=== PATIENT | male | born 1980 | race Asian ===

== ENCOUNTER 2021-09-20 21:39 | Observation (INO) ==
[2021-09-20] MEDS ORDERED: SODIUM CHLORIDE 0.9% 1000ML 1,000 ML IV SCH (22:15)
--- NOTE | 2021-09-20 22:15 | Emergency Department Note ---
History of Present Illness General Chief complaint: Chest Pain Stated complaint: chest pain Time Seen by Provider: 09/20/21 22:02 History of Present Illness Maximum Pain Intensity: 7 This is a 41-year-old male presenting to the emergency department for evaluation of persistent chest pain and cough for the past 2 months. The patient has followed with his primary care physician with this complaint and reportedly had outpatient x-rays that did show pneumonia. He has been on Zithromax, which he feels may have improved his symptoms initially. Over the last few days his symptoms have worsened and tonight he had an episode of scant hemoptysis. The patient does not report fevers or chills. He does not usually take prescription medication on a regular basis. He does not recall any recent travel history or personal/family history of DVT/PE. He rates his current discomfort a 7/10. Most of his chest pain worsens with his coughing. Home Medications Medication Instructions Recorded Confirmed Type amlodipine 10 mg tablet 10 mg PO DAILY 09/21/21 09/21/21 History Allergies Allergy/AdvReac Type Severity Reaction Status Date / Time milk AdvReac Intermediate Gastrointestinal Verified 09/21/21 00:27 Upset Past Med/Surg History Medical History (Updated 09/21/21 @ 02:00 by Blake Cohen PA-C) No chronic diseases present Surgical History (Updated 09/20/21 @ 22:14 by Blake Cohen PA-C) No significant past surgical history Family History (Updated 09/21/21 @ 01:55 by Blake Cohen PA-C) Father Cancer from Lung Cancer at 64 y/o Social History Smoking Status: Never smoker Feels Safe at Home: Yes Review of Systems A total of 10 systems reviewed and were otherwise negative Physical Exam Vital Signs Vital Signs - 24 hr 09/20/21 21:39 09/20/21 22:11 09/21/21 00:00 Temperature 36.8 C Temperature Source Temporal Artery Scan Pulse Rate 103 H Pulse Rate [Apical] 95 H Pulse Rhythm [Apical] Regular Respiratory Rate 18 12 Respiratory Effort / Characteristics Non-Labored Respiratory Depth Normal Normal Blood Pressure 150/94 H Blood Pressure [Right Arm] 154/110 H Blood Pressure Mean 112 Blood Pressure Mean [Right Arm] 124 Pulse Oximetry 96 95 95 Oxygen Delivery Method Room Air Room Air Room Air Sepsis Recent Fever Within 48 Hours No Sepsis New/Unexplained Change in Mental Status No Sepsis Action Taken by Nursing No Action Required VITALS: Vitals are noted on the nurse's note and reviewed by myself. Vital signs with tachycardia GENERAL: Well-developed, well-nourished, male, who is in no acute distress and resting comfortably. Patient is cooperative with the examination. HEAD: Normocephalic atraumatic. MOUTH: Mucous membranes moist. Tonsils are not enlarged. Pharynx without erythema, blood, or exudate. Uvula midline. Airway patent. NECK: Supple without nuchal rigidity. No lymphadenopathy. No thyromegaly. Cervical spine is nontender. HEART: Tachycardic rate with regular rhythm LUNGS: Generally clear throughout with some mild crackles left-sided low chua. ABDOMEN: Positive normal bowel sounds x 4. Soft, nontender, without masses or organomegaly. No guarding or rebound tenderness. MUSCULOSKELETAL: No muscle atrophy, erythema, or edema noted. Full range of motion in all extremities. No palpable cords. No identifiable calf tenderness bilateral. Course Administered Medications Discontinued Medications Sodium Chloride (Nss 1000ml) 1,000 mls @ 999 mls/hr IV .Q1H1M KULDIP Stop: 09/20/21 23:15 Last Infusion: 09/21/21 00:09 Dose: 0 mls/hr Documented by: [id number] Admin: 09/20/21 22:44 Dose: 999 mls/hr Documented by: [id number] Cosigned by: [id number] Ioversol (Optiray 320 125ml) 121 ml IV ONCE ONE Stop: 09/21/21 00:00 Last Admin: 09/20/21 23:59 Dose: 1 ml Documented by: [id number] Medical Decision Making Differential Diagnosis Differential diagnosis includes, but is not limited to: Myocardial infarction, dysrhythmia, pericarditis, pneumothorax, aortic aneurysm/dissection, DVT/PE, anxiety, GERD, PUD, electrolyte imbalance, thyroid disorder, pneumonia, bronchitis, pancreatitis, and others Laboratory Data Result diagrams: 09/20/21 22:31 09/20/21 22:31 Lab Results 09/20/21 09/20/21 09/20/21 Range/Units 22:31 22:31 23:19 WBC 7.54 (4.8-10.8) K/uL RBC 5.41 (4.7-6.1) M/uL Hgb 16.1 (14.0-18.0) g/dL Hct 44.2 (42-52) % MCV 81.7 (80-100) fL MCH 29.8 (25-34) pg MCHC 36.4 H (32-36) g/dL RDW Std Deviation 37.7 (36.4-46.3) fL RDW Coeff of [place] 12.7 (11.5-14.5) % Plt Count 257 (130-400) K/uL MPV 10.1 (7.4-10.4) fL Immature Gran % (Auto) 0.0 % Neut % (Auto) 74.3 % Lymph % (Auto) 19.9 % Boyle % (Auto) 3.7 % Eos % (Auto) 2.0 % Baso % (Auto) 0.1 % Neut # (Auto) 5.60 (1.4-6.5) K/uL Lymph # (Auto) 1.50 (1.2-3.4) K/uL Boyle # (Auto) 0.28 (0.11-0.59) K/uL Eos # (Auto) 0.15 (0-0.5) K/uL Baso # (Auto) 0.01 (0-0.2) K/uL Immature Gran # (Auto) 0.00 (0.00-0.02) K/uL Sodium 139 (136-145) mmol/L Potassium 3.1 L (3.5-5.1) mmol/L Chloride 103 (98-107) mmol/L Carbon Dioxide 27 (21-32) mmol/L Anion Gap 9 (3-11) BUN 5 L (6-23) mg/dl Creatinine 0.63 (0.6-1.4) mg/dl Est Cr Clr Drug Dosing 157.4 ml/min Est GFR ( Amer) 143.9 ml/min Est GFR (Non-Af Amer) 124.1 ml/min BUN/Creatinine Ratio 7.9 L (10-20) Glucose 120 H (70-99(Fasting)) mg/dl Calcium 8.8 (8.5-10.1) mg/dl Total Bilirubin 0.7 (0.2-1.0) mg/dl AST 15 (13-39) U/L ALT 17 (7-52) U/L Alkaline Phosphatase 114 H (34-104) U/L Troponin I < 0.03 (0-0.04) ng/ml Total Protein 7.6 (6.0-8.3) gm/dl Albumin 4.4 (3.4-5.0) gm/dl Globulin 3.2 (2.5-4.0) gm/dl Albumin/Globulin Ratio 1.4 (0.9-2) Lipase 19 (11-82) U/L Urine Color Yellow Urine Appearance Clear (Clear) Urine pH 7.5 (4.5-7.5) Ur Specific [place] 1.002 (1.000-1.030) Urine Protein Negative (Negative) Urine Glucose (UA) Negative (Negative) Urine Ketones Negative (Negative) Urine Blood Negative (Negative) Urine Nitrite Negative (Negative) Urine Bilirubin Negative (Negative) Urine Urobilinogen Negative (Negative) Ur Leukocyte Esterase Negative (Negative) SARS-CoV-2, RNA, NAAT (NEGATIVE) 09/21/21 Range/Units 00:53 WBC (4.8-10.8) K/uL RBC (4.7-6.1) M/uL Hgb (14.0-18.0) g/dL Hct (42-52) % MCV (80-100) fL MCH (25-34) pg MCHC (32-36) g/dL RDW Std Deviation (36.4-46.3) fL RDW Coeff of [place] (11.5-14.5) % Plt Count (130-400) K/uL MPV (7.4-10.4) fL Immature Gran % (Auto) % Neut % (Auto) % Lymph % (Auto) % Boyle % (Auto) % Eos % (Auto) % Baso % (Auto) % Neut # (Auto) (1.4-6.5) K/uL Lymph # (Auto) (1.2-3.4) K/uL Boyle # (Auto) (0.11-0.59) K/uL Eos # (Auto) (0-0.5) K/uL Baso # (Auto) (0-0.2) K/uL Immature Gran # (Auto) (0.00-0.02) K/uL Sodium (136-145) mmol/L Potassium (3.5-5.1) mmol/L Chloride (98-107) mmol/L Carbon Dioxide (21-32) mmol/L Anion Gap (3-11) BUN (6-23) mg/dl Creatinine (0.6-1.4) mg/dl Est Cr Clr Drug Dosing ml/min Est GFR ( Amer) ml/min Est GFR (Non-Af Amer) ml/min BUN/Creatinine Ratio (10-20) Glucose (70-99(Fasting)) mg/dl Calcium (8.5-10.1) mg/dl Total Bilirubin (0.2-1.0) mg/dl AST (13-39) U/L ALT (7-52) U/L Alkaline Phosphatase (34-104) U/L Troponin I (0-0.04) ng/ml Total Protein (6.0-8.3) gm/dl Albumin (3.4-5.0) gm/dl Globulin (2.5-4.0) gm/dl Albumin/Globulin Ratio (0.9-2) Lipase (11-82) U/L Urine Color Urine Appearance (Clear) Urine pH (4.5-7.5) Ur Specific [place] (1.000-1.030) Urine Protein (Negative) Urine Glucose (UA) (Negative) Urine Ketones (Negative) Urine Blood (Negative) Urine Nitrite (Negative) Urine Bilirubin (Negative) Urine Urobilinogen (Negative) Ur Leukocyte Esterase (Negative) SARS-CoV-2, RNA, NAAT NEGATIVE (NEGATIVE) Imaging Data Radiologist's Impression: Preliminary Findings Only See Final Report For Complete Findings CTA CHEST: Ovoid lesion along the right paraspinal region measuring 3.0 x 1.8 cm. Mild to moderate left-sided pleural effusion. Cavitary lesion within the left lower lobe measuring 2.7 cm with spiculations raising the concern of neoplasm. Soft tissue density through the lingular lobe extending into the left hilum which could represent a mass versus pneumonitis. There is a mass within the left hilum concerning for neoplasm contributing to a circumferential narrowing of the left lower lobe pulmonary artery and pulmonary lingular branches. This may be accessible via bronchoscopy due to central location if clinically indicated. Diffuse bilateral scattered micronodules raising the concern of metastatic disease. There are lymph nodes along the aortopulmonary window, may represent metastatic lymphadenopathy. There are several lymph nodes in the left axilla, largest measuring 1.7 cm, indeterminate. There is a low-attenuation structure within the liver at the junction of the right and left liver lobe measuring 12.6 mm suggestive of a cyst, etiology ind eterminate. No pulmonary embolus or aortic dissection. Normal cardiac size. Unremarkable bony structures. Radiologist:Leyla Villegas MD [facility] Narrative Physical exam and history were performed. Nursing notes, EMR, and Medication List were personally reviewed. Patient appears to have atypical chest pain with coughing. He is tachycardic on presentation. IV access was established and labs were obtained. EKG was performed without acute ST elevation. Because of his symptoms I did elect perform CT scan for pulmonary emboli as D-dimer is not able to rule out this process based on patient's presenting symptoms and vitals. An order was placed for continuous cardiac monitoring. The monitor shows a rate of 95 with normal sinus rhythm. The patient's blood work is as above and was reviewed. He does not have a significantly elevated white blood cell count, bandemia, or gross electrolyte imbalance. He is not anemic. Troponin x1 is negative. Lipase and transaminases are not diagnostic. Urine is without evidence of infection. Covid is negative. CT scan of the chest with contrast was reviewed by myself and radiology. CT scan is quite concerning. The patient does not appear to have distinct pulmonar y emboli which was my initial concern. He does have several findings that may represent cancerous or metastatic findings. I did review possibilities of tuberculosis, however I was not able to identify any distinct risks of this. The patient does not smoke tobacco. His father at a relatively young age of lung cancer. The case was discussed with my attending. Overall we do not feel the patient is well for discharge home. He will need additional evaluation of his symptoms. The case was discussed with the on-call hospitalist team, who agreed to evaluate the patient here in the ER. Please see their dictation for further patient course, plan, and disposition. The chart was completed utilizing The [employer] Voice Recognition Software. Grammatical errors, random word insertions, pronoun errors, and incomplete sentences are an occasional consequence of this system due to software limitations, ambient noise, and hardware issues. Any formal questions or concerns about the content, text, or information contained within the body of this dictation should be directly addressed to the provider for clarification. . Impression & Plan Atypical chest pain, Abnormal CT of the chest, Pleural effusion on left, Cavitary lesion of lung Discharge Plan Visit Data Chief Complaint: Chest Pain Stated Complaint: chest pain ED Provider: Srinivas Farfan ED Midlevel Provider: Blake Cohen Discharge Problem: Atypical chest pain, Abnormal CT of the chest, Pleural effusion on left, Cavitary lesion of lung Forms Stand Alone Forms: [facility] Prescriptions Prescriptions: No Action amlodipine 10 mg tablet 10 mg PO DAILY RF: 0 Referrals Referrals: Galindo Forst [Primary Care Provider] -
[2021-09-20 22:39] LABS: Basophils # (auto) 0.01 K/uL (0-0.2); Basophils % (auto) 0.1 %; Eosinophils # (auto) 0.15 K/uL (0-0.5); Hematocrit (blood only) 44.2 % (42-52); Hemoglobin 16.1 g/dL (14.0-18.0); Lymphocytes % (auto) 19.9 %; Mean Corpuscular Hemoglobin 29.8 pg (25-34); Mean Corpuscular Hgb Conc 36.4 g/dL (32-36); Mean Corpuscular Volume 81.7 fL (80-100); Mean Platelet Volume 10.1 fL (7.4-10.4); Monocytes # (auto) 0.28 K/uL (0.11-0.59); Monocytes % (auto) 3.7 %; Neutrophils % (auto) 74.3 %; Platelet Count 257 K/uL (130-400); RDW Coefficient of Variation 12.7 % (11.5-14.5); RDW Standard Deviation 37.7 fL (36.4-46.3); Red Blood Count 5.41 M/uL (4.7-6.1); White Blood Count 7.54 K/uL (4.8-10.8)
[2021-09-20 23:08] LABS: Troponin I < 0.03 ng/ml (0-0.04)
[2021-09-20 23:11] LABS: Alanine Aminotransferase 17 U/L (7-52); Albumin Globulin Ratio 1.4 (0.9-2); Albumin Level 4.4 gm/dl (3.4-5.0); Alkaline Phosphatase 114 U/L (34-104); Anion Gap 9 (3-11); Aspartate Aminotransferase 15 U/L (13-39); BUN Creatinine Ratio 7.9 (10-20); Bilirubin,Total 0.7 mg/dl (0.2-1.0); Blood Urea Nitrogen 5 mg/dl (6-23); Calcium 8.8 mg/dl (8.5-10.1); Carbon Dioxide 27 mmol/L (21-32); Chloride 103 mmol/L (98-107); Creatinine Clr Calc Pharmacy 157.4 ml/min; Est GFR (African American) 143.9 ml/min; Est GFR (Non-African American) 124.1 ml/min; Globulin 3.2 gm/dl (2.5-4.0); Glucose 120 mg/dl (70-99(Fasting)); Lipase 19 U/L (11-82); Potassium 3.1 mmol/L (3.5-5.1); Sodium 139 mmol/L (136-145); Total Protein 7.6 gm/dl (6.0-8.3)
[2021-09-20 23:33] LABS: Appearance Urine Clear (Clear); Bilirubin Urine Negative (Negative); Blood Urine Negative (Negative); Color Urine Yellow; Glucose Urine UA Negative (Negative); Ketones Urine Negative (Negative); Leukocyte Esterase Urine Negative (Negative); Nitrite Urine Negative (Negative); Protein Urine Negative (Negative); Specific Gravity Urine 1.002 (1.000-1.030); Urobilinogen Urine Negative (Negative); pH Urine 7.5 (4.5-7.5)
[2021-09-20] MEDS ORDERED: OPTIRAY 320 125ml IV ONE (23:59)
--- NOTE | 2021-09-21 01:22 | History & Physical Report ---
Date of Service September 21, 2021 Assessment & Plan (1) Cavitary lesion of lung: (2) Atypical chest pain: (3) Hypertension: Plan: Maria C Goldman is a 41-year-old male with past medical history of hypertension who presents due to chest pain and hemoptysis starting today. He has also had a chronic cough dating back to June 2021. Pulmonary lesions See CTA results above concerning for neoplasm with possible metastasis Cavitary lesion less concerning for tuberculosis, as patient has not had recent travel history and lesion located in left lower lobe Admit for observation to [facility] Will consult pulmonology for possible bronchoscopy to aid in diagnosis Cough suppressant as needed Tylenol as needed for pain N.p.o. LR at 115 cc/h Hypokalemia K of 3.1 on initial labs KCl 40 mEq IV ordered Check a.m. labs Hypertension Mildly elevated blood pressure, monitor Continue home amlodipine DVT prophylaxis: SCDs, hold chemoprophylaxis in case of bronchoscopy FEN/GI: N.p.o., LR at 115 cc/h Dispo: [facility] for observation CODE STATUS: Full History of Present Illness Primary Care Provider: Galindo Frost Maria C Goldman is a 41-year-old male with past medical history of hypertension who presents due to chest pain and hemoptysis starting today. Patient was seen at his PCPs office on July 24, 2021 where he complained of persistent cough of 4 weeks duration. He had a negative Covid test at that time. A chest x-ray was ordered ray and he was prescribed Tessalon Perles. His x-ray done on 08/10/2021 showed a minimal left lower lung opacity, which was favored to be atelectasis but small focus of pneumonia could not be ruled out. Per [facility] chart review, he followed up with his PCP on 08/22/2021 and informed his PCP that he had taken a Z-Delfin from [place] after finding out about his x-ray results. At that follow-up visit, patient still endorsed having a co ugh productive of white sputum. At that time this was his only symptom. Patient and at bedside today state that his cough was at its worst about 2 to 3 weeks ago, but this week had actually improved significantly. However, today he had a recurrence of the cough and noticed some blood-tinged sputum coming up. He also reported chest pain with the cough. He denies fever, chills, nausea, vomiting, abdominal pain, shortness of breath, headache, dizziness, numbness, swelling, weight loss, night sweats. Patient denies a history of smoking. States father of lung cancer. In the ED today, patient had lab studies with normal white count, normal hemoglobin, normal platelet count, normal sodium, potassium at 3.1, mildly elevated alk phos at 114, negative troponin. EKG with normal sinus rhythm. CTA of the chest with findings significant for cavitary lesion, multiple masses, lymphadenopathy (see complete stat rad read below). Allergies Allergy/AdvReac Type Severity Reaction Status Date / Time milk AdvReac Intermediate Gastrointestinal Verified 09/21/21 00:27 Upset Home Medications Medication Instructions Recorded Confirmed Type amlodipine 10 mg tablet 10 mg PO DAILY 09/21/21 09/21/21 History Past Med/Surg History Medical History (Updated 09/21/21 @ 02:46 by Cb Garcia MD) Hypertension Surgical History (Updated 09/20/21 @ 22:14 by Blake Cohen PA-C) No significant past surgical history Family History (Updated 09/21/21 @ 01:55 by Blake Cohen PA-C) Father Cancer from Lung Cancer at 64 y/o Social History Smoking Status: Never smoker Feels Safe at Home: Yes Review of Systems Review of Systems: All systems reviewed & are unremarkable except as noted in HPI & below Physical Exam Physical Exam: GENERAL: A&Ox3. NAD. HEENT: PERRL, EOMI. Moist mucous membranes. NECK: No JVD. No lymphadenopathy. CHEST/LUNGS: CTAB A/P. Crackles in lower left; no wheezes, rales, rhonchi. HEART: RRR. No m/g/r. ABDOMEN: NT/ND, soft. BS+ x4 EXTREMITIES: No cyanosis, no clubbing, no edema SKIN: Warm and dry. No rashes or lesions. PSYCHIATRIC: Euthymic affect, no SI, no pressured speech, no hallucinations NEUROLOGIC: No FND. CN II-XII grossly intact. Results & Data Results & Data ([facility]) Vital Signs (Past 12 Hours) Vital Signs Temp Pulse Pulse Resp BP BP Pulse Ox 09/21/21 00:00 95 H 12 154/110 H 95 09/20/21 22:11 95 09/20/21 21:39 36.8 C 103 H 18 150/94 H 96 Diagnostic Findings CTA chest: Ovoid lesion along the right paraspinal region measuring 3.0 x 1.8 cm. Mild to moderate left-sided pleural effusion. Cavitary lesion within the left lower lobe measuring 2.7 cm with spiculations raising the concern of neoplasm. Soft tissue density throughout the lingular lobe extending into the left hilum which could represent a mass versus pneumonitis. There is a mass within the left hilum concerning for neoplasm contributing to a circumferential narrowing of the left lower lobe pulmonary artery and pulmonary lingular branches. This may be accessible via bronchoscopy due to central location if clinically indicated. Diffuse bilateral scattered micronodules raising the concern of metastatic disease. There are lymph nodes along the aortopulmonary window, may represent metastatic lymphadenopathy. There are several lymph nodes in the left axilla, largest measuring 1.7 cm, indeterminate. There is a low- attenuation structure within the liver at the junction of the right and left liver lobe measuring 12.6 mm suggestive of a cyst, etiology indeterminate. No pulmonary embolus or aortic dissection. Normal cardiac size. Unremarkable bony structures. Supervising Physician Co-Signing Physician Notes Patient seen and examined, chart reviewed, case discussed with Dr. Sofia and I agree with the assessment and plan as above. In brief, patient is a 41yo male with history of HTN presenting with cough, hemoptysis - was managed outpatient with antibiotics for presumed PNA. CTA today with findings as above - concern for malignancy Exam is unremarkable. Afebrile, HD stable Patient resting comfortably, no respiratory distress Lungs CTA Labs and images reviewed Assessment/plan Cavitary lesion lung with nodes, effusion, concern for malignancy. ?infectious process, autoimmune less likely -Supplemental O2 as needed -Cough suppressants as needed -Pulmonary consultation appreciated -Remainder as above Resident Activity Tracking Resident Involvement: Resident Care Provided Care Provided: Adult Hospital Medicine
[2021-09-21] MEDS ORDERED: POTASSIUM CHLORIDE / WTR 10 MEQ/100 ML PLCT IV STA (02:48)
[2021-09-21] MEDS ORDERED: guaiFENesin/DEXTROM SYRUP 200MG/20MG 10ML UDC PO PRN (03:15)
[2021-09-21] MEDS ORDERED: ONDANSETRON INJ 2 MG/ML 2 ML VIAL IV PRN ×2 (03:15→12:50)
[2021-09-21] MEDS ORDERED: ACETAMINOPHEN 1,000 MG/100 ML VIAL IV PRN (03:15)
[2021-09-21] MEDS: LACTATED RINGER'S 1,000 ML IV SCH ×2 (04:00→15:31)
--- NOTE | 2021-09-21 04:37 | Billing Data ---
Date of Service September 21, 2021 Coding Level of Care Code INT OBSERVATION CARE 50M LVL 2
[2021-09-21] MEDS: POTASSIUM CHLORIDE / WTR 10 MEQ/100 ML PLCT IV SCH ×4 (05:18→08:45)
--- NOTE | 2021-09-21 08:08 | Pulmonary Consultation ---
Date of Consultation September 21, 2021 Assessment & Plan (1) Abnormal CT of the chest: (2) Cavitary lesion of lung: (3) LAD (lymphadenopathy), mediastinal: CT chest 09/20/2021 personally reviewed: Multiple small pulmonary nodules appreciated bilaterally upper and lower lobes especially in the upper lobes Left hilar mass encasing part of the left pulmonary artery 3.1 x 2.8 cm 2.1 cm irregular cavitary lesion appreciated in the left lower lobe anterior segment Consolidative process in the lingula Mediastinal lymphadenopathy especially station 10 L, station 7 There is also lower thoracic paraspinal mass 3.1 x 2 cm --Left lower lobe cavitary lesion with left hilar mass and mediastinal lymphadenopathy The patient is a lifetime non-smoker Weight loss Originally from [place] with last travel history 5-6 years ago Etiology could be multifactorial but malignancy will be high in differential Infectious etiology like TB is still in the differential Sputum culture along with AFB culture --Hemoptysis Likely secondary to above --Left pleural effusion Small Unfortunately there is a sliding of the lung and it is risky to do thoracentesis Plan: We will try to do EBUS with flexible bronchoscopy Risk and benefit of the procedure expanded the patient in depth All question course of the patient were answered in depth He agrees to go ahead with the procedure Consent signed, witnessed and put in the chart Please note the above document was generated using voice recognition software. It may contain grammatical, syntax or spelling errors.Any formal questions or concerns about the content, text or information contained within the body of this dictation should be directly addressed to the provider for clarification. History of Present Illness Attending Physician: Teddy Alatorre DO History of Present Illness 41-year-old male admitted to the hospital because of chest pain and hemoptysis Patient had CT chest done which showed left hilar mass with cavitary lesion in the left lower lobe Pulmonary consulted for the same At time of examination patient said that he has been having issues with a cough which has been going on for approximately 6-8 weeks. He has tested negative for Covid in the past. He was using symptomatic management for the cough as well as azithromycin. But it was not getting better Yesterday morning he had some blood in the phlegm for which she got worried and got admitted to hospital He does complain of chest pain which is actually more central and on the right side rather than the left. Denies any fever or chills No dysuria, or diarrhea. Last time he traveled to [place] was 5-6 years ago He denies any personal history of tuberculosis. No known TB contacts He has had loss in appetite as well as 4 pound weight loss in the last 2 months. Denies any night sweats. No headache, no blurry vision. Social history: Lifetime non-smoker. Allergies Allergy/AdvReac Type Severity Reaction Status Date / Time milk AdvReac Intermediate Gastrointestinal Verified 09/21/21 00:27 Upset Home Medications Medication Instructions Recorded Confirmed Type amlodipine 10 mg tablet 10 mg PO DAILY 09/21/21 09/21/21 History Patient History Medical History (Updated 09/21/21 @ 08:08 by Shaun Vasquez MD) Hypertension Surgical History (Updated 09/20/21 @ 22:14 by Blake Cohen PA-C) No significant past surgical history Family History (Updated 09/21/21 @ 01:55 by Blake Cohen PA-C) Father Cancer from Lung Cancer at 64 y/o Social History Smoking Status: Never smoker Hx Alcohol Use: No Hx Substance Use: No Preferred Language: Irish Communication Ability: Effective Corn Cooker Required: No Beliefs That Will Affect Care: None Current Living Situation: Spouse Feels Safe at Home: Yes Safety Concerns: Feels Safe At This Time Assistive Devices: None Review of Systems Review of Systems: All systems reviewed & are unremarkable except as noted in HPI & below Physical Exam Physical Exam: Constitutional: No acute distress HEENT: EOMI, PERRLA, no cervical lymphadenopathy Respiratory system: Decreased air entry bilaterally more decreased on the left side, no wheeze, no rhonchi, mild crackles bilaterally CVS: S1-S2 positive, no murmurs or gallops Abdomen: Soft, nontender, nondistended, positive bowel sounds x4 Extremities: +2 pulses bilaterally radialis/ dorsalis pedis, no cyanosis, no edema Neuro: Awake alert oriented x3 Psych: Normal mood and affect G/U: No Moran Skin: no rashes, warm and dry Lymphatic: no cervical or axillary lymphadenopathy Results & Data Results & Data ([facility]) Vital Signs (Past 12 Hours) Vital Signs Temp Pulse Pulse Pulse Resp BP BP 09/21/21 07:22 37.1 C 109 H 16 133/89 09/21/21 04:49 37 C 102 H 18 142/93 H 03/25/22 02:00 97 H 17 147/99 H 09/21/21 00:00 95 H 12 09/20/21 22:11 09/20/21 21:39 36.8 C 103 H 18 150/94 H BP Pulse Ox 09/21/21 07:22 95 09/21/21 04:49 95 09/21/21 02:00 97 09/21/21 00:00 154/110 H 95 09/20/21 22:11 95 09/20/21 21:39 96 Laboratory Results 09/20/21 22:31 09/20/21 22:31 PG Care Time/CCT Total # of Minutes Spent Total Time Spent with Patient: Total time spent is greater than 50% in coordination of care (as documented) at patient's floor/unit and/or counseling patient: Coding Level of Care Code 08731 Inpt Consult Level [address] of the chest R93.89 Cavitary lesion of lung J98.4 LAD (lymphadenopathy), mediastinal R59.0
[2021-09-21] MEDS: amLODIPine BESYLATE 5 MG TAB PO SCH (08:17)
--- NOTE | 2021-09-21 08:17 | CT Scan Report ---
CT ANGIOGRAPHY OF THE CHEST, PULMONARY EMBOLUS PROTOCOL CLINICAL HISTORY: Shortness of breath. Cough. Evaluate for pulmonary embolus. COMPARISON STUDY: Chest radiograph August 10, 2021. TECHNIQUE: Following IV administration of 121 mL of Optiray, helical axial images of the chest were o btained utilizing the pulmonary embolus protocol. Maximal intensity projections and sagittal and cor onal reformats were viewed on an independent 3D workstation. IV contrast was administered without co mplication. Automated exposure control was utilized for the study. A dose lowering technique was ut ilized adhering to the principles of ALARA. CT DOSE: 293.66 mGy.cm FINDINGS: No pulmonary emboli are identified. There is dilatation of the main pulmonary artery, flakito uring 3.8 cm. Note is made of marked narrowing of the distal left pulmonary artery, the left lower lo be pulmonary artery and multiple small segmental branches of the left lower lobe. This is due to a bradford spected central mass or lymphadenopathy which measures approximately 3.1 x 2.8 cm and is centered on the left lower lobe pulmonary artery. A small left pleural effusion is noted. There is no pneumothora x. Note is made of a 3.1 x 2 cm right lower thoracic paraspinal mass shown on axial image 65 of 278. Thoracic lymphadenopathy is present, including a prevascular node measures 1.9 x 1.1 cm. Enlarged lef t supraclavicular lymph node measures 1.3 x 1 cm. Enlarged left axillary lymph node measures 1.4 x 1. 1 cm. Innumerable small noncalcified solid nodules throughout the lungs are present. In addition, the re is a 2.1 cm irregular cavitary left lower lobe lesion on image 81 of 278. Lingular consolidation i s present. There are additional groundglass opacities, including a groundglass opacity within the sup erior segment of the left lower lobe. Lingular segmental branches are narrowed and possibly occluded. No suspicious lesions within the bony thorax are present. 1.2 cm water attenuation hepatic lesion fa vors a cyst. IMPRESSION: 1. No pulmonary emboli identified. Dilatation of the main pulmonary artery. 2. Numerous thoracic abnormalities including narrowing of the distal left pulmonary artery and left l ower lobe pulmonary artery due to a mass-like abnormality which may reflect a central neoplasm or lym phadenopathy. Mediastinal, left hilar, left supraclavicular and left axillary lymphadenopathy. Innume rable small pulmonary nodules and a 2.1 cm cavitary left lower lobe lesion. Additional multifocal air space opacities within the left lung which may reflect consolidation or pulmonary hemorrhage. Small l eft pleural effusion. Overall, these findings favor a neoplastic process with a central left lung ma lignancy and metastases. However, the appearance is unusual and additional less likely considerations include tuberculosis, fungal infection or vasculitis. Pulmonary consultation is recommended. 3. Indeterminate 3.1 x 2 cm right lower thoracic paraspinal mass. ACT 112: Negative or not required by law. Electronically signed by: Lester Courtney M.D. 09/21/2021 8:16 AM
--- NOTE | 2021-09-21 08:48 | Hospitalist Progress Note ---
Date of Service September 21, 2021 Assessment & Plan (1) Cavitary lesion of lung: (2) Atypical chest pain: (3) Hypertension: Plan: Maria C Goldman is a 41-year-old male with past medical history of hypertension who presents due to chest pain and hemoptysis starting today. He has also had a chronic cough dating back to June 2021. Pulmonary lesions See CTA results above concerning for neoplasm with possible metastasis Cavitary lesion less concerning for tuberculosis, as patient has not had recent travel history and lesion located in left lower lobe Admit for observation to [facility] Will consult pulmonology for possible bronchoscopy to aid in diagnosis Cough suppressant as needed Tylenol as needed for pain N.p.o. LR at 115 cc/h Hypokalemia K of 3.1 on initial labs KCl 40 mEq IV ordered Check a.m. labs Hypertension Mildly elevated blood pressure, monitor Continue home amlodipine DVT prophylaxis: SCDs, hold chemoprophylaxis in case of bronchoscopy FEN/GI: N.p.o., LR at 115 cc/h Dispo: [facility] for observation CODE STATUS: Full Admission and Anticipated Discharge Date Admission Date: September 21, 2021 Results & Data Results & Data ([facility]) Vital Signs (Past 12 Hours) Vital Signs Temp Pulse Pulse Pulse Resp BP BP 09/21/21 07:22 37.1 C 109 H 16 133/89 09/21/21 04:49 37 C 102 H 18 142/93 H 09/21/21 02:00 97 H 17 147/99 H 09/21/21 00:00 95 H 12 09/20/21 22:11 09/20/21 21:39 36.8 C 103 H 18 150/94 H BP Pulse Ox 09/21/21 07:22 95 09/21/21 04:49 95 09/21/21 02:00 97 09/21/21 00:00 154/110 H 95 09/20/21 22:11 95 09/20/21 21:39 96
[2021-09-21 08:51] LABS: Prothrombin Time 11.1 Seconds (9.0-12.0)
[2021-09-21 12:11] LABS: Anion Gap 9 (3-11); BUN Creatinine Ratio 7.4 (10-20); Blood Urea Nitrogen 4 mg/dl (6-23); Calcium 8.6 mg/dl (8.5-10.1); Carbon Dioxide 25 mmol/L (21-32); Chloride 104 mmol/L (98-107); Creatinine Clr Calc Pharmacy 183.7 ml/min; Est GFR (African American) > 150.0 ml/min; Est GFR (Non-African American) 132.3 ml/min; Glucose 113 mg/dl (70-99(Fasting)); Potassium 3.3 mmol/L (3.5-5.1); Sodium 138 mmol/L (136-145)
[2021-09-21] MEDS ORDERED: ONDANSETRON INJ 2 MG/ML 2 ML VIAL ONE (12:11)
[2021-09-21] MEDS ORDERED: NEOSTIGMINE METHYLSULFATE 1 MG/ML 10ML VIAL ONE (12:11)
[2021-09-21] MEDS ORDERED: fentaNYL citrate 100 MCG/2 ML VIAL ONE (12:11)
[2021-09-21] MEDS ORDERED: MIDAZOLAM HCL 1 MG/ML 2ML VIAL ONE (12:11)
[2021-09-21] MEDS ORDERED: LIDOCAINE 2% 2 ML VIAL/AMP(20MG/ML) INFIL ONE (12:11)
[2021-09-21] MEDS ORDERED: PROPOFOL IV EMULSION 10 MG/ML 20 ML VIAL IV ONE ×2 (12:11→12:14)
[2021-09-21] MEDS ORDERED: DEXAMETHASONE SOD INJ 4 MG/ML VIAL ONE (12:11)
[2021-09-21] MEDS ORDERED: GLYCOPYRROLATE 0.2 MG/ML VIAL ONE (12:11)
[2021-09-21] MEDS ORDERED: ROCURONIUM BROMIDE 10 MG/ML 5 ML VIAL IV ONE (12:14)
[2021-09-21] MEDS ORDERED: SUCCINYLCHOLINE CHLORIDE 20 MG/ML 10 ML VIAL IV ONE (12:14)
--- NOTE | 2021-09-21 12:36 | Anesthesiology Consultation ---
Date of Service September 21, 2021 Assessment & Plan (1) Encounter for pre-operative examination: Chart Review Chart Review: Acceptable Risk for Surgery History Surgery Operation Date: 09/21/21 09:10 Proposed Procedures p Endobronchial Ultrasound - Shaun Vasquez MD s Bronchoscopy Respiratory - Shaun Vasquez MD Height/Weight Height: 5 ft 9 in Weight: 73.9 kg Allergies Allergy/AdvReac Type Severity Reaction Status Date / Time milk AdvReac Intermediate Gastrointestinal Verified 09/21/21 00:27 Upset Medications Home Medications Medication Instructions Recorded Confirmed Last Taken amlodipine 10 mg tablet 10 mg PO DAILY 09/21/21 09/21/21 09/20/21 Active Medications Generic Name Dose Route Start Last Admin Trade Name Freq PRN Reason Stop Dose Admin Amlodipine Besylate 10 mg 09/21/21 09:00 09/21/21 08:17 Amlodipine Besylate 5 Mg Tab PO 10/21/21 08:59 Not Given DAILY KULDIP Lactated Ringer's 1,000 mls @ 115 mls/hr 09/21/21 03:15 09/21/21 04:00 Lr IV 10/21/21 03:14 115 mls/hr .[id number] KULDIP Administration NPO Date Last Intake of Fluids: 09/21/21 Time Last Intake of Fluids: 02:00 Date Last Intake of Solids: 09/21/21 Time Last Intake of Solids: 00:00 Past Medical History Medical History (Updated 09/21/21 @ 12:36 by Jm Bonds MD) Cavitary lesion of lung Hypertension Exercise / Class Metabolic Activity II 4-5 Yardwork/Stairs/Walk up hill Past Family History Family History Father Cancer from Lung Cancer at 64 y/o Past Surgical History Surgical History No significant past surgical history Social History Smoking Status: Never smoker Hx Alcohol Use: No Hx Substance Use: No Physical Exam Vital Signs Last Vital Signs Temp 37.1 C 09/21/21 07:22 Pulse 109 H 09/21/21 07:22 Resp 16 09/21/21 07:22 BP 133/89 09/21/21 07:22 Pulse Ox 95 09/21/21 07:22 Testing Laboratory Results 09/20/21 22:31 09/21/21 07:07 PT 11.1 Seconds (9.0-12.0) 09/21/21 08:17 INR 1.0 (0.9-1.1) 09/21/21 08:17 Urine Color Yellow 09/20/21 23:19 Urine Appearance Clear (Clear) 09/20/21 23:19 Urine pH 7.5 (4.5-7.5) 09/20/21 23:19 Ur Specific [place] 1.002 (1.000-1.030) 09/20/21 23:19 Urine Protein Negative (Negative) 09/20/21 23:19 Urine Glucose (UA) Negative (Negative) 09/20/21 23:19 Urine Ketones Negative (Negative) 09/20/21 23:19 Urine Nitrite Negative (Negative) 09/20/21 23:19 Ur Leukocyte Esterase Negative (Negative) 09/20/21 23:19
[2021-09-21] MEDS ORDERED: ATROPINE SULFATE 0.1 MG/ML 10ML SYR IV PRN (12:50)
[2021-09-21] MEDS ORDERED: KETOROLAC 30 MG/ML VIAL IV PRN (12:50)
[2021-09-21] MEDS ORDERED: LABETALOL HCL IV 5 MG/ML 20ML IV PRN (12:50)
[2021-09-21] MEDS ORDERED: fentaNYL citrate 100 MCG/2 ML VIAL IV PRN (12:50)
[2021-09-21] MEDS ORDERED: PROMETHAZINE HCL 6.25 MG in SODIUM CHLORIDE 0.9% 50 ML IV PRN (12:50)
--- NOTE | 2021-09-21 13:33 | Electrocardiogram Report ---
Test Reason : Blood Pressure : / mmHG Vent. Rate : 094 BPM Atrial Rate : 094 BPM P-R Int : 142 ms QRS Dur : 094 ms QT Int : 346 ms P-R-T Axes : 048 082 046 degrees QTc Int : 432 ms Normal sinus rhythm Normal ECG No previous ECGs available Confirmed by Adolfo Perla ([id number]) on 09/21/2021 1:32:53 PM Referred By: REFERRED SELF Confirmed By:Julio C Perla
--- NOTE | 2021-09-21 14:05 | Procedure Note ---
Procedure Note: Bronchoscopy Procedure PREOPERATIVE DIAGNOSIS: Mediastinal lymphadenopathy with left lower lobe cavitary lesion POSTOPERATIVE DIAGNOSIS: Mediastinal lymphadenopathy with intrabronchial lesion PROCEDURE PERFORMED: EBUS and flexible fiberoptic bronchoscopy with bronchial lavage and endobronchial biopsy COMPLICATIONS: None. INDICATION: Rule out malignancy PROCEDURE: After obtaining an informed consent, the patient was brought to the OR. The patient had appropriate oxygen, blood pressure, heart rate, and respiratory rate monitoring applied and monitored continuously throughout the procedure. Sedation was managed by anesthesia. Please look into the note Bronchoscope was introduced through the ETT The trachea appeared normal. bronchoscope was then advanced through the iris, which was sharp. The scope was then advanced into the right main stem and each segment, subsegement in the right upper lobe, right middle lobe and right lower lobe were visualized. There where minimal amount of clear secretion which were suctioned out. There were no other findings including evidence of mass, anatomic distortions, or hemorrhage. The bronchoscope was subsequently withdrawn and advanced into the left mainstem. There was widening of the second and the third iris. There was narrowing of the subsegmental bronchi into the left lower lobe as well as superior segment of the left lower lobe. Again, each segment and subsegment was well visualized. Minimal amount of bloody secretion was appreciated which was suctioned out. Multiple forceps biopsies were taken of the endobronchial lesion. Minimal bleeding was appreciated post procedure which stopped on its own. The bronchoscope was then wedged in the left lower lobe anterior segment followed by lateral segment and bronchoalveolar lavage samples were obtained. 80 ml of saline was instilled and 25ml of fluid was aspirated back from anterior segment. 50 mL was instilled in the lateral segment and 30 mL aspirated back. The bronchoscope was withdrawn and the area was suctioned clear. Bronchoscope was withdrawn and EBUS was introduced. Station 7 was visualized along with station 10 L/mass and 4R Station 7: 6 passes were made with multiple sweeps, positive for probable malignancy 10 L/mass: 4 passes were made with multiple sweeps, positive for probable malignancy EBUS was withdrawn and flexible bronchoscope was reintroduced Minimal bleeding and clot was appreciated in the left lower lobe which was suctioned clear. Cold saline was also used. In the end no active oozing of blood was appreciated The area was suctioned clear. The bronchoscope was then withdrawn. The patient tolerated the procedure well without evidence of desaturation or complications. Bronchoalveolar lavage samples were sent for cell count, Gram stain and bacterial culture, AFB culture and smear, fungal culture and smear and cytology. Transbronchial biopsies were sent for tissue culture (bacteria, AFB and fungal) and pathology. Recommendations: Follow-up cytology and pathology Follow-up AFB Please note the above document was generated using voice recognition software. It may contain grammatical, syntax or spelling errors.Any formal questions or concerns about the content, text or information contained within the body of this dictation should be directly addressed to the provider for clarification.
[2021-09-21] MEDS ORDERED: ESMOLOL HCL INJ 10 MG/ML 10ML VIAL IV ONE (14:24)
--- NOTE | 2021-09-21 14:36 | Communication Note ---
Date of Service: September 21, 2021 In addition to plan provided by history and physical, patient was tested for tuberculosis which is pending at the time of writing this note. Patient was se quentially placed on respiratory precautions. Patient had bronchoscopy performed by pulmonology with collection of tissue sample. Per pulmonology, seems to look like squamous cell carcinoma, but will await official pathology report. I also saw the patient with the resident physician and confirmed sánchez portions of the history and physical examination. At the time my exam, the patient was resting comfortably in bed. This was prior to his planned bronchoscopy late morning. The patient remains in negative pressure isolation, precautions until TB is excluded. The patient was admitted earlier today by our overnight team. Please see their H&P for complete documentation.
--- NOTE | 2021-09-21 14:38 | Anesthesiology Progress Note ---
Date of Service September 21, 2021 Anesthesia Post Procedure Vital Signs Vital Signs: Temp Pulse Pulse Pulse Resp BP BP 09/21/21 14:30 96.8 F L 117 H 22 131/91 09/21/21 14:20 96.8 F L 114 H 20 139/88 09/21/21 14:10 96.8 F L 113 H 18 133/87 09/21/21 07:22 98.8 F 109 H 16 133/89 09/21/21 04:49 98.6 F 102 H 18 142/93 H 09/21/21 02:00 97 H 17 147/99 H 09/21/21 00:00 95 H 12 09/20/21 22:11 09/20/21 21:39 98.2 F 103 H 18 150/94 H BP Pulse Ox 09/21/21 14:30 95 09/21/21 14:20 98 09/21/21 14:10 97 09/21/21 07:22 95 09/21/21 04:49 95 09/21/21 02:00 97 09/21/21 00:00 154/110 H 95 09/20/21 22:11 95 09/20/21 21:39 96 Pain Intensity Midsternal: Pain Intensity: 5 Transfer of Care Handoff Completed per policy Notes Mental Status: alert / awake / arousable and participated in evaluation Patient Amnestic to Procedure: Yes Nausea / Vomiting: adequately controlled Pain: adequately controlled Airway Patency, RR, SpO2: stable & adequate BP & HR: stable & adequate Hydration State: stable & adequate Anesthetic Complications: no major complications apparent and Pt Satisfied with anesthetic care
--- NOTE | 2021-09-21 15:10 | XRay Report ---
XR chest 1V portable CLINICAL HISTORY: s/p bronch TECHNIQUE: Single frontal radiograph of the chest was obtained. Comparison: Comparison is made to chest 2 views 08/10/2021 and CTA chest 09/20/2021 FINDINGS: No lines and tubes are seen. The cardiomediastinal silhouette is normal. Interval worsening of left l ower lung opacity. Miliary densities are seen in the bilateral lungs. No pneumothorax is seen. Left p leural effusion cannot be excluded. IMPRESSION: 1. No evidence of pneumothorax. 2. Interval worsening of airspace opacity in the left lower lobe. This may represent postbiopsy hemo rrhage, atelectasis, pneumonia, and/or aspiration. 3. Miliary densities, comparable in extent to prior CTA chest. ACT 112: Negative or not required by law. Electronically signed by: Kenan Fountain M.D. 09/21/2021 3:09 PM
[2021-09-21 15:32] LABS: Eosinophil Body Fluid Man 2 %; Fluid Mono/Macrophage 60 %; Lymphocyte Body Fluid Man 17 %; Neutrophil Body Fluid Man 21 %
[2021-09-21] MEDS: guaiFENesin/DEXTROM SYRUP 200MG/20MG 10ML UDC PO SCH ×2 (17:30→21:57)
[2021-09-21] MEDS: SODIUM CHLOR 7% 4 ML NEB NEB SCH (19:26)
[2021-09-22] MEDS: guaiFENesin/DEXTROM SYRUP 200MG/20MG 10ML UDC PO SCH ×4 (05:25→22:50)
[2021-09-22 06:32] LABS: Hematocrit (blood only) 43.4 % (42-52); Hemoglobin 15.5 g/dL (14.0-18.0); Immature Granulocytes # (auto) 0.02 K/uL (0.00-0.02); Immature Granulocytes % (auto) 0.3 %; Lymphocytes # (auto) 1.11 K/uL (1.2-3.4); Lymphocytes % (auto) 14.1 %; Mean Corpuscular Hemoglobin 29.2 pg (25-34); Mean Corpuscular Hgb Conc 35.7 g/dL (32-36); Mean Corpuscular Volume 81.9 fL (80-100); Mean Platelet Volume 10.3 fL (7.4-10.4); Monocytes # (auto) 0.41 K/uL (0.11-0.59); Monocytes % (auto) 5.2 %; Neutrophils # (auto) 6.34 K/uL (1.4-6.5); Neutrophils % (auto) 80.4 %; Platelet Count 276 K/uL (130-400); RDW Coefficient of Variation 12.5 % (11.5-14.5); RDW Standard Deviation 37.4 fL (36.4-46.3); White Blood Count 7.88 K/uL (4.8-10.8)
--- NOTE | 2021-09-22 06:47 | Hospitalist Progress Note ---
Date of Service September 22, 2021 Assessment & Plan (1) Cavitary lesion of lung: Plan: 41 yo M with PMH HTN, non-smoker admitted for chest pain and hemoptysis in background of chronic non-productive cough 3x months. Cough, pulmonary mass CT chest 09/20- multiple nodules of b/l upper/lower lobes, L lower lobe irregular cavitary lesion, L hilar mass, mediastinal lymphadenopathy, lower thoracic paraspinal mass -Pulmonary consulted- performed bronchoscopy 09/21- suspect malignancy, samples sent to pathology -TB workup- Quantiferon pending but AFB smear negative, will d/c isolation precautions. Also less clinical suspicion for TB in light of imaging -Will need PET/CT as outpatient -CXR 09/21 without acute process, demonstrating atelectasis -Order MRI brain for metastasis evaluation now that pt is off isolation -Continue chest physiotherapy, guaifenesin for antitussive effect Hypokalemia K 3.2 today, repleted with KCl 40 meq PO Trend BMP Hypertension BPs stable Continue home amlodipine DVT prophylaxis: SCDs, hold chemoprophylaxis in setting of hemoptysis FEN/GI: Regular ISOLATION: D/c precautions today Dispo: Med/Surg for observation CODE STATUS: Full (2) Hypokalemia: (3) Hypertension: Admission and Anticipated Discharge Date Admission Date: September 21, 2021 Supervising Physician Co-Signing Physician Notes I independently saw the patient discussed the case with the resident physician. I agree with impression and plan as noted in the resident documentation. Upon my examination, the patient is resting comfortably in bed. He notes intermittent cough, occasional blood, but not the significant hemoptysis he had noted prior to admission. A very mild headache, he points to the left posterior aspect of his head. He is aware of the likely diagnosis of cancer, and he is also informed his of the diagnosis. 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 Exam 132/89, 93, 18, 37.1, 96% on room air Heart regular rate and rhythm Respirations nonlabored. Lung exam deferred Data WBC 7.8, hemoglobin 15.5, platelet count 276 Sodium 138, potassium 3.2, BUN 10, creatinine 0.56 Legionella culture is pending. QuantiFERON gold is pending. Acid-fast bacilli smear from bronchial washings is negative; culture is pending Assessment and Plan Hemoptysis/cavitary lesion of the lung with lymphadenopathy, suspect malignancy Since AFB smear is negative, can remove from isolation MRI brain to evaluate for metastatic disease Will need PET CT scan as outpatient along with medical oncology appointment Tissue diagnosis is pending pathology results Subjective No acute events overnight, pt doing well. Report his cough has decreased in severity and frequency but still occurring, endorses mild infrequent hemoptysis. No dyspnea, chest pain, fevers, chills. Review of Systems Review of Systems: Per Subjective Physical Exam Physical Exam: GENERAL: No acute distress HEENT: Moist mucous membranes, no cervical lymphadenopathy bl/l CHEST/LUNGS: Decreased air flow entry L > R, mild diffuse crackles b/l, no wheezes, increased work of breathing or retractions HEART: RRR, normal S1, S2, no murmurs EXTREMITIES: No cyanosis, clubbing or edema SKIN: Warm and dry. No rashes or lesions. Results & Data Results & Data ([facility]) Vital Signs (Past 12 Hours) Vital Signs Temp Pulse Resp BP Pulse Ox 09/21/21 21:00 37.0 C 101 H 18 133/90 97 09/21/21 19:27 100 H 16 95 Resident Activity Tracking Resident Involvement: Resident Care Provided Care Provided: Adult [facility]
[2021-09-22 06:59] LABS: Alanine Aminotransferase 13 U/L (7-52); Albumin Globulin Ratio 1.4 (0.9-2); Albumin Level 4.1 gm/dl (3.4-5.0); Alkaline Phosphatase 98 U/L (34-104); Anion Gap 10 (3-11); Aspartate Aminotransferase 13 U/L (13-39); BUN Creatinine Ratio 17.9 (10-20); Bilirubin,Total 0.9 mg/dl (0.2-1.0); Blood Urea Nitrogen 10 mg/dl (6-23); Calcium 8.9 mg/dl (8.5-10.1); Carbon Dioxide 24 mmol/L (21-32); Chloride 104 mmol/L (98-107); Creatinine Clr Calc Pharmacy 177.1 ml/min; Est GFR (African American) > 150.0 ml/min; Est GFR (Non-African American) 130.3 ml/min; Glucose 114 mg/dl (70-99(Fasting)); Potassium 3.2 mmol/L (3.5-5.1); Sodium 138 mmol/L (136-145); Total Protein 7.1 gm/dl (6.0-8.3)
[2021-09-22] MEDS: SODIUM CHLOR 7% 4 ML NEB NEB SCH ×2 (07:21→19:35)
--- NOTE | 2021-09-22 07:52 | Pulmonology Progress Note ---
Date of Service September 22, 2021 Assessment & Plan (1) Abnormal CT of the chest: (2) Cavitary lesion of lung: (3) LAD (lymphadenopathy), mediastinal: Plan: CT chest 09/20/2021 personally reviewed: Multiple small pulmonary nodules appreciated bilaterally upper and lower lobes especially in the upper lobes Left hilar mass encasing part of the left pulmonary artery 3.1 x 2.8 cm 2.1 cm irregular cavitary lesion appreciated in the left lower lobe anterior segment Consolidative process in the lingula Mediastinal lymphadenopathy especially station 10 L, station 7 There is also lower thoracic paraspinal mass 3.1 x 2 cm --Left lower lobe cavitary lesion with left hilar mass and mediastinal lymphadenopathy The patient is a lifetime non-smoker Weight loss Originally from [place] with last travel history 5-6 years ago S/p bronchoscopy 09/21/2021 with EBUS --> primary diagnosis is cancer. Follow-up confirmatory cytology and pathology Infectious etiology like TB is less likely, will wait for the AFB smear to be negative from the bronc fluid before taking the isolation off. If goal QuantiFERON is negative then also isolation can be taken off Sputum culture along with AFB culture Recommend PET/CT as soon as possible as outpatient --Hemoptysis Likely secondary to above Continue with [id number] antitussive medication --Left pleural effusion Small Unfortunately there is a sliding of the lung and it is risky to do thoracentesis Plan: I did go over the findings from the bronchoscopy and EBUS with the patient All questions inquiries of the patient were answered in depth. Chest x-ray from today shows improvement compared to the 1 done post bronchoscopy yesterday Patient likely has some atelectasis component from the narrowing of the airway Continue with chest PT, guaifenesin DM [id number] H&H is stable. Patient will need PET CT as an outpatient MRI of the brain can be ordered once patient is off isolation Patient can be taken off isolation once the AFB smear from the BAL is negative or Gold QuantiFERON is negative Please note the above document was generated using voice recognition software. It may contain grammatical, syntax or spelling errors.Any formal questions or concerns about the content, text or information contained within the body of this dictation should be directly addressed to the provider for clarification. Admission and Anticipated Discharge Date Admission Date: September 21, 2021 Subjective Patient seen and examined at bedside. No acute distress, no episodes overnight. Patient says the cough is decrease in intensity He is bringing up little bit of blood-tinged phlegm Does complain of mild right-sided chest tenderness which has not changed from before. Denies any headache, no blurry vision Review of Systems Review of Systems: All systems reviewed & are unremarkable except as noted in Subjective Physical Exam Physical Exam: Constitutional: No acute distress HEENT: EOMI, PERRLA, no cervical lymphadenopathy Respiratory system: Decreased air entry bilaterally more decreased on the left side, no wheeze, no rhonchi, mild crackles bilaterally CVS: S1-S2 positive, no murmurs or gallops Abdomen: Soft, nontender, nondistended, positive bowel sounds x4 Extremities: +2 pulses bilaterally radialis/ dorsalis pedis, no cyanosis, no edema Neuro: Awake alert oriented x3 Psych: Normal mood and affect G/U: No Moran Skin: no rashes, warm and dry Lymphatic: no cervical or axillary lymphadenopathy Results & Data Results & Data ([facility]) Vital Signs (Past 12 Hours) Vital Signs Temp Pulse Resp BP Pulse Ox 09/22/21 07:22 108 H 16 96 09/21/21 21:00 37.0 C 101 H 18 133/90 97 Laboratory Results 09/22/21 05:29 09/22/21 05:29 PG Care Time/CCT Total # of Minutes Spent Total Time Spent with Patient: Total time spent is greater than 50% in coordination of care (as documented) at patient's floor/unit and/or counseling patient: [place] [address] Subseq Hosp Care Lvl 2 Patient Type Established Diagnoses Abnormal CT of the chest R93.89 Cavitary lesion of lung J98.4 LAD (lymphadenopathy), mediastinal R59.0
[2021-09-22] MEDS: amLODIPine BESYLATE 5 MG TAB PO SCH (08:19)
--- NOTE | 2021-09-22 09:26 | XRay Report ---
XR chest 1V portable CLINICAL HISTORY: Follow-up left lower lobe opacity. COMPARISON STUDY: Portable chest from 09/21/2021 and CTA chest from 09/20/2021 TECHNIQUE: 1 view of the chest FINDINGS: Single frontal view of the chest demonstrates the heart size to again be within normal limits. There is evidence for left hilar mass with postobstructive atelectasis/pneumonitis involving left lower lob e. The remainder of the lungs are clear of alveolar opacities. There is evidence for small left pleur al effusion. There is no definite right pleural effusion. There is no evidence for vascular congestio n. There is no acute osseous pathology. IMPRESSION: 1. Compared to the previous studies, there is again evidence for left hilar mass with postobstructive atelectasis/pneumonitis involving left lower lobe. 2. Small left pleural effusion. ACT 112: Negative or not required by law. Electronically signed by: Tulio Yeboah M.D. 09/22/2021 9:23 AM
[2021-09-22] MEDS ORDERED: POTASSIUM CHLORIDE CRTAB 20 MEQ TABCR PO STA (09:27)
[2021-09-22] MEDS ORDERED: GADOBUTROL 65ML VIAL IV ONE (13:58)
--- NOTE | 2021-09-22 14:48 | Magnetic Resonance Report ---
MR brain wo/w con CLINICAL HISTORY: Lung cancer, evaluate metastasis. COMPARISON STUDY: No previous studies for comparison. TECHNIQUE: Multiplanar multisequence images of the brain were performed before and after Gadavist, 7 .3 mL of IV contrast. Diffusion weighted imaging and ADC mapping was also performed. FINDINGS: Extra-axial space: There is no evidence for a subdural hematoma, There are no extra-axial fluid daniel ections. Ventricles and cisterns: The ventricles are normal in size and configuration. There is no evidence f or midline shift or mass effect. Parenchyma: On noncontrast images, there is no evidence for an acute hemorrhage or infarct. No acute diffusion abnormalities are noted on diffusion weighted imaging or ADC mapping. There is normal howard -white differentiation. The sulci and gyri appear normal without effacement. The midline structures a re unremarkable. The posterior fossa structures appear normal. On postcontrast images, there is no evidence for enhancing mass lesion. Osseous structures: The paranasal sinuses are well aerated. The mastoid air cells are well aerated. Soft tissues: No focal soft tissue abnormalities are identified. IMPRESSION: 1. No acute intracranial abnormalities. ACT 112: Negative or not required by law. Electronically signed by: Tulio Yeboah M.D. 09/22/2021 2:46 PM
[2021-09-23] MEDS: guaiFENesin/DEXTROM SYRUP 200MG/20MG 10ML UDC PO SCH ×2 (05:53→11:24)
[2021-09-23 06:57] LABS: BUN Creatinine Ratio 20.3 (10-20); Calcium 8.9 mg/dl (8.5-10.1); Est GFR (African American) 142.9 ml/min; Est GFR (Non-African American) 123.3 ml/min; Potassium 3.1 mmol/L (3.5-5.1)
[2021-09-23] MEDS ORDERED: POTASSIUM CHLORIDE CRTAB 20 MEQ TABCR PO STA ×2 (06:57→08:30)
[2021-09-23] MEDS: SODIUM CHLOR 7% 4 ML NEB NEB SCH (07:36)
[2021-09-23] MEDS: amLODIPine BESYLATE 5 MG TAB PO SCH (07:52)
--- NOTE | 2021-09-23 08:32 | Pulmonology Progress Note ---
Date of Service September 23, 2021 Assessment & Plan (1) Abnormal CT of the chest: (2) Cavitary lesion of lung: (3) LAD (lymphadenopathy), mediastinal: Plan: CT chest 09/20/2021 personally reviewed: Multiple small pulmonary nodules appreciated bilaterally upper and lower lobes especially in the upper lobes Left hilar mass encasing part of the left pulmonary artery 3.1 x 2.8 cm 2.1 cm irregular cavitary lesion appreciated in the left lower lobe anterior segment Consolidative process in the lingula Mediastinal lymphadenopathy especially station 10 L, station 7 There is also lower thoracic paraspinal mass 3.1 x 2 cm --Left lower lobe cavitary lesion with left hilar mass and mediastinal lymphadenopathy The patient is a lifetime non-smoker Weight loss Originally from [place] with last travel history 5-6 years ago S/p bronchoscopy 09/21/2021 with EBUS --> primary diagnosis is cancer. Follow-up confirmatory cytology and pathology Infectious etiology like TB is less likely. AFB smear from BAL is negative. Patient is off isolation Sputum culture along with AFB culture MRI of the brain negative Recommend PET/CT as soon as possible as outpatient --Hemoptysis Likely secondary to above Continue with mfhhf-mfu-mgjso antitussive medication --Left pleural effusion Small Unfortunately there is a sliding of the lung and it is risky to do thoracentesis Plan: Chest x-ray from today shows improvement compared to yesterday. There still is likely segmental atelectasis. Continue with chest PT, guaifenesin DM and flutter valve Patient will need PET CT as an outpatient Follow-up with pulmonary as an outpatient. PFTs as an outpatient Recommend cough medication as well as pain medication prior to discharge No further recommendation from pulmonary perspective. Will sign off Please call directly with any questions Please note the above document was generated using voice recognition software. It may contain grammatical, syntax or spelling errors.Any formal questions or concerns about the content, text or information contained within the body of this dictation should be directly addressed to the provider for clarification. Admission and Anticipated Discharge Date Admission Date: September 21, 2021 Subjective Patient seen and examined at bedside. No acute distress, no adverse events overnight Still complaining of cough bringing up a little bit phlegm Hemoptysis has gone down significantly Denies any headache, no blurry vision No nausea or vomiting. Review of Systems Review of Systems: All systems reviewed & are unremarkable except as noted in Subjective Physical Exam Physical Exam: Constitutional: No acute distress HEENT: EOMI, PERRLA, no cervical lymphadenopathy Respiratory system: Decreased air entry bilaterally more decreased on the left side, no wheeze, no rhonchi, mild crackles bilaterally CVS: S1-S2 positive, no murmurs or gallops, accentuated P2 Abdomen: Soft, nontender, nondistended, positive bowel sounds x4 Extremities: +2 pulses bilaterally radialis/ dorsalis pedis, no cyanosis, no edema Neuro: Awake alert oriented x3 Psych: Normal mood and affect G/U: No Moran Skin: no rashes, warm and dry Lymphatic: no cervical or axillary lymphadenopathy Results & Data Results & Data ([facility]) Vital Signs (Past 12 Hours) Vital Signs Temp Pulse Resp BP BP Pulse Ox 09/23/21 08:10 36.5 C 89 18 129/86 96 09/23/21 07:38 101 H 16 95 09/22/21 22:15 37.2 C 99 H 18 142/94 H 95 Laboratory Results 09/22/21 05:29 09/23/21 05:24 PG Care Time/CCT Total # of Minutes Spent Total Time Spent with Patient: Total time spent is greater than 50% in coordination of care (as documented) at patient's floor/unit and/or counseling patient: Coding Level of Care Code 09249 Subseq Hosp Care Lvl [address] of the chest R93.89 Cavitary lesion of lung J98.4 LAD (lymphadenopathy), mediastinal R59.0
--- NOTE | 2021-09-23 08:39 | Discharge Summary ---
Date of Service September 23, 2021 Admission HPI Per Admitting Provider Maria C Goldman is a 41-year-old male with past medical history of hypertension who presents due to chest pain and hemoptysis starting today. Patient was seen at his PCPs office on July 24, 2021 where he complained of p ersistent cough of 4 weeks duration. He had a negative Covid test at that time. A chest x-ray was ordered ray and he was prescribed Tessalon Perles. His x-ray done on 08/10/2021 showed a minimal left lower lung opacity, which was favored to be atelectasis but small focus of pneumonia could not be ruled out. Per [facility] chart review, he followed up with his PCP on 08/22/2021 and informed his PCP that he had taken a Z-Delfin from [facility] after finding out about his x-ray results. At that follow-up visit, patient still endorsed having a cough productive of white sputum. At that time this was his only symptom. Patient and at bedside today state that his cough was at its worst about 2 to 3 weeks ago, but this week had actually improved significantly. However, today he had a recurrence of the cough and noticed some blood-tinged sputum coming up. He also reported chest pain with the cough. He denies fever, chills, nausea, vomiting, abdominal pain, shortness of breath, headache, dizziness, numbness, swelling, weight loss, night sweats. Patient denies a history of smoking. States father of lung cancer. In the ED today, patient had lab studies with normal white count, normal hemoglobin, normal platelet count, normal sodium, potassium at 3.1, mildly elevated alk phos at 114, negative troponin. EKG with normal sinus rhythm. CTA of the chest with findings significant for cavitary lesion, multiple masses, lymphadenopathy (see complete stat rad read below). Admission Exam Per Admitting Provider GENERAL: A&Ox3. NAD. HEENT: PERRL, EOMI. Moist mucous membranes. NECK: No JVD. No lymphadenopathy. CHEST/LUNGS: CTAB A/P. Crackles in lower left; no wheezes, rales, rhonchi. HEART: RRR. No m/g/r. ABDOMEN: NT/ND, soft. BS+ x4 EXTREMITIES: No cyanosis, no clubbing, no edema SKIN: Warm and dry. No rashes or lesions. PSYCHIATRIC: Euthymic affect, no SI, no pressured speech, no hallucinations NEUROLOGIC: No FND. CN II-XII grossly intact. Principal Diagnosis Lung cancer Discharge Exam GENERAL: No acute distress HEENT: Moist mucous membranes, no cervical lymphadenopathy bl/l CHEST/LUNGS: Decreased air flow entry L > R, no crackles, no wheezes, increased work of breathing or retractions HEART: RRR, normal S1, S2, no murmurs EXTREMITIES: No cyanosis, clubbing or edema SKIN: Warm and dry. No rashes or lesions. Discharge Data Allergies Allergy/AdvReac Type Severity Reaction Status Date / Time milk AdvReac Intermediate Gastrointestinal Verified 09/21/21 00:27 Upset Consultations 09/21/21 01:04 ED Decision to Admit Stat 09/21/21 03:15 Consult Pulmonology Routine Procedures Performed Operation Date: 09/21/21 09:10 Actual Procedures p Endobronchial Ultrasound with Transbronchial Biopsy, and Transbronchial Aspiration(Not Applicable) - Shaun Vasquez MD s Bronchoscopy with Bronchioaveolar Lavage(Not Applicable) - Shaun Vasquez MD Ordered Studies 09/20/21 22:11 CT angio chest PE protocol Urgent 09/21/21 07:47 US point of care ultrasound Urgent 09/22/21 12:55 MR brain wo/w con Routine Hospital Course (1) Cavitary lesion of lun yo M with PMH HTN, non-smoker admitted for chest pain and hemoptysis in background of chronic non-productive cough 3x months. Cough, pulmonary mass CT chest 09/20- multiple nodules of b/l upper/lower lobes, L lower lobe irregular cavitary lesion, L hilar mass, mediastinal lymphadenopathy, lower thoracic paraspinal mass -Pulmonary consulted- performed bronchoscopy 09/21- suspect malignancy, samples sent to pathology. Results still pending -TB workup- Quantiferon pending but AFB smear negative. Also less clinical suspicion for TB in light of imaging -MRI brain negative for metastasis -Will need PET/CT as outpatient, oncology appointment requested on discharge -CXR 09/21 without acute process, demonstrating atelectasis -Treated with regular chest physiotherapy, guaifenesin Hypokalemia K 3.1 today, repleted with KCl 40 meq -Discharged on KCl tabs 40 meq daily Recommend f/u BMP outpatient by PCP Hypertension BPs stable Continue home amlodipine DVT prophylaxis: SCDs, hold chemoprophylaxis in setting of hemoptysis FEN/GI: Regular ISOLATION: D/c precautions today Dispo: Med/Surg for observation CODE STATUS: Full (2) Hypokalemia: (3) Hypertension: Total Time Total Time Spent Total Time Spent (In Minutes): 30 minutes Discharge Plan Discharge Items Patient Disposition: Home - Self-Care Reason For Visit: HEMOPTYSIS Discharge Diagnosis: Malignant lung mass Activity: Resume your previous activity Non-emergency contact: Primary Care Provider, Oncologist and Occupational Health Physiotherapist Call non-emergency contact if: you have any medication questions, your symptoms worsen, your pain is worsening and you have a fever Follow-up/Referrals: Galindo Frost [Primary Care Provider] - Saira Burrell MD [Physician] - (Please schedule outpatient f/u as soon as allows for lung cancer evaluation) Diet: Regular Addtl Attending Provider Instructions: You were admitted to the hospital for cough, chest pain and bleeding. You were evaluated with imaging and bronchoscopy which revealed suspicion for cancer of the lung. An MRI of the brain revealed no spread of the cancer to the brain. You will need outpatient follow-up with oncology to further evaluate the cancer's severity and spread through PET/CT scan. For your cough, we recommend taking cough syrup such as guaifenesin (common brand- Mucinex syrup) to provide relief. Please eat meals carefully and slowly to avoid triggering your cough reflex too strongly. A discharge summary will be sent to your primary care physician to ensure cont inuity of care. Please bring this discharge summary with you to your next office appointment so that your provider can review it at that time. Follow-up appointments: Make a follow-up appointment with your PCP within the next week. It is very important that you follow up with them shortly after discharge from the hospital. We have also requested an appointment with the oncology/cancer care service. They should call you soon to schedule an appointment. [phone]. Please call this number tomorrow to schedule your oncology appointment. Keep all your follow-up appointments as already scheduled. If you cannot make an appointment, notify your provider. Medications: Your medication list has been reviewed and reconciled upon discharge to ensure accuracy and continuity of care. An updated list of all your medications is included with your hospital discharge paperwork. Please review this list closely, and make note of any changes. Your potassium level was low in the hospital and we have been supplementing it. It is still a bit low today at 3.1, so we will discharge you with a prescription for potassium chloride. This is a dissolvable packet. Please take 1 packet daily and when you follow up with your PCP Dr. Frost, he will obtain bloodwork to check your potassium level. Take your medications as instructed; do not skip a dose of your medicines. Make sure all of your doctors know every medicine you are taking (including ugfk-bom-zoeewac medicines, vitamins, and supplements). Call your primary care provider before taking any new medicines (including tays-fmv-xngoknj medicines, vitamins, and supplements), because some of these may interact with your current medications, or may make your symptoms worse. Tell your primary care provider if you cannot afford your medications. CONTACT YOUR PRIMARY CARE PROVIDER if you experience any of the following: Cough Blood in cough Difficulty breathing Chest pain Headaches Lightheadedness/dizziness Vomiting Fatigue Difficulty following your treatment plan, or difficulty taking medications CALL 911 OR GO TO THE EMERGENCY DEPARTMENT if you experience any of the following: Sudden, severe abdominal pain or nausea/vomiting Severe chest pain, or chest pain that radiates (moves) to your jaw or arm Sudden, severe shortness of breath or difficulty breathing Thank you for allowing us to participate in your care. Pending Studies at Discharge: No Stand-Alone Forms: My [facility] Medications and DC Order Prescriptions: New potassium chloride 20 mEq packet 40 meq PO DAILY Qty: 30 RF: 0 Continued amlodipine 10 mg tablet 10 mg PO DAILY RF: 0 Discharge Orders: Discharge Order (Routine); Ordered 09/23/21 Ordered By: Yecenia Iqbal Admission Data Admit Date/Time: 09/21/21 01:43 Attending Provider: Teddy Alatorre Admit Provider: Cb Garcia Primary Care Provider: Galindo Frost Other Providers: Silvia Abdul Muqueet Other Interventions: Discharge Summary Assessment (RN) Last Done: 09/23/21 11:13 Supervising Physician Co-Signing Physician Notes I independently saw the patient discussed the case with the resident physician. I agree with impression and plan as noted in the resident documentation. Upon exam today, the patient has been moved out of an isolation room. He has no complaints. Cough continues but much less. No significant hemoptysis. Exam 129/86, 89, 18, 36.5, 96% room air Heart regular rate and rhythm Respirations nonlabored. Data WBC 7.88, hemoglobin 15.5, platelet count 276 Sodium 140, potassium 3.1, BUN 13, creatinine 0.64 Legionella culture is pending. QuantiFERON gold is pending. Acid-fast bacilli smear from bronchial washings is negative; culture is pending Imaging MRI of the brain shows no acute abnormalities. No evidence of metastatic disease Chest x-ray shows persistent left hilar mass with left lower lobe atelectasis. Small left pleural effusion. Assessment and Plan Hemoptysis/cavitary lesion of the lung with lymphadenopathy, suspect malignancy Discharged home today, aware of additional studies and consultations that will be needed as an outpatient. Since AFB smear is negative, can remove from isolation Will need PET CT scan as outpatient along with medical oncology appointment Tissue diagnosis is pending pathology results Resident Activity Tracking Resident Involvement: Resident Care Provided Care Provided: [facility]
--- NOTE | 2021-09-23 09:03 | XRay Report ---
XR chest 1V portable CLINICAL HISTORY: Follow up left lower lobe opacity. COMPARISON STUDY: 09/22/2021 TECHNIQUE: 1 view of the chest FINDINGS: Single frontal view of the chest demonstrates the heart size to be within normal limits. There is aga in a left hilar mass with postobstructive atelectasis/pneumonitis involving the left lower lobe. Righ t hemithorax is clear. There is evidence for small left pleural effusion. There is no evidence for va scular congestion. There is no acute osseous pathology. IMPRESSION: 1. Persistent left hilar mass with left lower lobe atelectasis/pneumonitis. Small left pleural effusi on. ACT 112: Negative or not required by law. Electronically signed by: Tulio Yeboah M.D. 09/23/2021 9:01 AM
[2021-09-23] MEDS: POTASSIUM CHLORIDE / WTR 10 MEQ/100 ML PLCT IV SCH ×2 (09:05→10:18)
[2021-09-23 17:08] LABS: Quantiferon Mitogen-NIL >10.00 IU/mL; Quantiferon NIL 0.32 IU/mL; Quantiferon TB Gold Plus NEGATIVE (NEGATIVE); Quantiferon TB1-NIL <0.00 IU/mL; Quantiferon TB2-NIL <0.00 IU/mL
== END 2021-09-23 13:40 | disposition home or self-care (01) ==
LOC: 3E 21:39 → ED 21:39 → SUATTDRO 09-21 01:43 → 3E 09-21 02:35

== ENCOUNTER 2023-03-30 19:15 | Inpatient (IN) ==
[2023-03-30] MEDS ORDERED: SODIUM CHLORIDE 0.9% 500 ML IV STA (19:56)
--- NOTE | 2023-03-30 20:03 | Emergency Department Note ---
Impression & Plan Non-ST elevation TN (NSTEMI), Pneumonia, Pleural effusion, Abnormal EKG, Tachycardia ED Provider Note NAME: CARMEN HERNANDEZ AGE: 42 SEX: M : 1980 ARRIVES VIA: Walk-In INFORMANT: Patient, ED PROVIDER(S): Collin Russell DO CHIEF COMPLAINT: Difficulty breathing HPI: The patient is a 42-year-old male who has a history of lung cancer with met astatic disease who presented to the emergency department for shortness of breath. The patient started noticing symptoms over the course the last few days. The patient has a history of metastatic disease to the brain. He had low blood counts recently and his blood thinner was held for approximately 10 days. He did restart the blood thinners a few days ago. The patient's been compliant with his outpatient medications otherwise. The patient presented to the emergency department because of difficulty breathing. ROS: See above HPI for pertinent positives & negatives. A total of 10 systems reviewed and were otherwise negative. PAST MEDICAL HISTORY: See Below PAST SURGICAL HISTORY: See Below FAMILY HISTORY: See Below SOCIAL HISTORY: See Below HOME MEDICATIONS: See Below ALLERGIES: See Below VITALS: See Below PHYSICAL EXAMINATION: GENERAL: Patient is awake alert in no acute distress patient is resting comfortably and showing no signs of anxiety EYES: The conjunctivae are clear. The pupils are round and reactive. EARS, NOSE, MOUTH AND THROAT: The nose is without any evidence of any deformity. Mucous membranes are moist. Tongue is midline. NECK: The neck is nontender and supple. RESPIRATORY: Diminished breath sounds are noted throughout especially in the right lung field. There is slight wheezing in the left upper lung field. Mild conversational dyspnea was noted. CARDIOVASCULAR: Tachycardic and regular heart sounds were noted to auscultation. There is no definite murmur. GASTROINTESTINAL: The abdomen is soft. Abdomen is nontender. MUSCULOSKELETAL/EXTREMITIES: There is no evidence of gross deformity full range of motion is noted in the hips and shoulders. SKIN: There is no obvious evidence of any rash. There are no petechiae, pallor or cyanosis noted. NEUROLOGIC: Patient is awake alert and oriented x3 MEDICAL DECISION MAKING: The patient is a 43-year-old male who has a history of lung cancer who presented to the emergency department for an evaluation of difficulty breathing. The patient did develop a fever. He stopped taking his anticoagulation recently because of abnormal lab studies. He also has a known metastatic lesion in the brain. The patient did restart taking his blood thinners approximately 3 to 4 days ago but started having severe shortness of breath. He presented with tachycardia. The patient was not hypotensive. He was treated with IV fluids in the emergency department. I discussed the patient's laboratory and radiographic studies with him. Because of the possibility of venous thromboembolic disease D-dimer was obtained. This was significantly elevated. For this reason CT of the chest was obtained. His presentation today does appear to be consistent with pneumonia with pleural effusion. He also had an abnormal EKG with an elevated troponin. I feel this represents an NSTEMI. I discussed the patient's condition with him. I do feel the patient would be a good candidate for inpatient management. The case was discussed with the [facility] ospitalist. Triage Nursing notes reviewed. Prior medical records reviewed Vital Signs: reviewed and remarkable for tachycardia and hypertension. Differential diagnosis: Reactive airway disease, pneumonia, pneumothorax, COPD, CHF, infections, cardiac ischemia, pulmonary embolism, musculoskeletal, gastrointestinal, as well as other pathologies. ER treatment provided: See below Diagnostics interpreted by me: ECG: EKG was obtained in the emergency department. My interpretation is sinus tachycardia [address] depressions were noted in the apical and low lateral leads. T wave inversions were noted inferiorly. This was compared to a tracing from November 07, 2021. The changes are new compared to the earlier tracing. Cardiac Monitoring: An order was placed for continuous cardiac monitoring. The monitor shows a rate of 119 bpm with sinus tachycardia. Laboratory studies: As stated above and show below. Imaging studies: See below. Radiographic imaging was reviewed by myself Consultation(s): Dr Woodard Was notified about the patient. He will evaluate the patient in the emergency department. ED COURSE: Procedures: none Critical Care: I have personally spent greater than 35 minutes of critical care time in the direct management of this patient. This includes bedside care, interpretation of diagnostic studies, and testing, discussion with consultants, patient, and family members, and other required patient management activities. This 35 minutes is in excess of all separately billable procedures. Past Med/Surg History Medical History Abnormal CT of the chest Adenocarcinoma of lung Cavitary lesion of lung Hypertension Hypokalemia LAD (lymphadenopathy), mediastinal No chronic diseases present Pleural effusion on left Surgical History History of surgery No significant past surgical history For undescended testes Family History Father Cancer from Lung Cancer at 64 y/o Mother No problems noted. Daughter No problems noted. 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; Feels Safe at Home: Yes Diet: regular caffeine: No during the past year weight has: remained stable Assistive Devices: Glasses Allergies Allergies Allergy/AdvReac Type Severity Reaction Status Date / Time milk AdvReac Intermediate Gastrointestinal Verified 11/05/22 11:58 Upset Home Meds Home Medications Medication Instructions Recorded Confirmed amlodipine 10 mg tablet 10 mg PO DAILY 09/21/21 11/05/22 oxycodone 5 mg capsule 5 mg PO Q6H PRN 10/09/21 11/05/22 Previous Rx's Medication Instructions Recorded potassium chloride 20 mEq oral 40 meq PO DAILY #30 ea 09/23/21 packet benzonatate 100 mg capsule 200 mg PO TID PRN cough #90 caps 10/09/21 Incentive Spirometer #1 ea 10/16/21 Results & Data (ED) Vital Signs Vital Signs - 24 hr 03/30/23 19:19 03/30/23 19:30 03/30/23 19:30 Temperature 37 C Temperature Source Temporal Artery Scan Pulse Rate 142 H Pulse Rate [Apical] Pulse Rate from SpO2 Sensor Pulse Rhythm Regular Pulse Rhythm [Apical] Pulse Strength Normal Pulse Strength [Apical] Respiratory Rate 30 H Respiratory Effort / Characteristics Labored Short of Breath Short of Breath SOB on Exertion Respiratory Depth Normal Deep Respiratory Pattern Tachypnea Tachypnea Blood Pressure 113/82 Blood Pressure Mean 92 Blood Pressure Position Sitting Pulse Oximetry 94 98 Oxygen Delivery Method Room Air Room Air Room Air Sepsis Recent Fever Within 48 Hours No Sepsis New/Unexplained Change in Mental Status N/A Sepsis Action Taken by Nursing No Action Required 03/30/23 20:14 03/30/23 19:59 03/30/23 20:00 Temperature 37.3 C Temperature Source Oral Pulse Rate 136 H 128 H Pulse Rate [Apical] 124 H Pulse Rate from SpO2 Sensor Pulse Rhythm Pulse Rhythm [Apical] Regular Pulse Strength Pulse Strength [Apical] Normal Respiratory Rate 20 23 19 Respiratory Effort / Characteristics Non-Labored Respiratory Depth Normal Respiratory Pattern Regular Blood Pressure Blood Pressure Mean Blood Pressure Position Pulse Oximetry 97 Oxygen Delivery Method Room Air Sepsis Recent Fever Within 48 Hours Sepsis New/Unexplained Change in Mental Status Sepsis Action Taken by Nursing 03/30/23 20:02 03/30/23 20:16 03/30/23 20:19 Temperature 37.3 C Temperature Source Oral Pulse Rate 130 H Pulse Rate [Apical] Pulse Rate from SpO2 Sensor Pulse Rhythm Pulse Rhythm [Apical] Pulse Strength Pulse Strength [Apical] Respiratory Rate 23 Respiratory Effort / Characteristics Respiratory Depth Respiratory Pattern Blood Pressure 159/110 H Blood Pressure Mean 126 Blood Pressure Position Pulse Oximetry 98 97 Oxygen Delivery Method Room Air Room Air Sepsis Recent Fever Within 48 Hours Sepsis New/Unexplained Change in Mental Status Sepsis Action Taken by Nursing 03/30/23 21:00 03/30/23 19:59 Temperature Temperature Source Pulse Rate 119 H 133 H Pulse Rate [Apical] Pulse Rate from SpO2 Sensor 119 H Pulse Rhythm Pulse Rhythm [Apical] Pulse Strength Pulse Strength [Apical] Respiratory Rate 22 Respiratory Effort / Characteristics Respiratory Depth Respiratory Pattern Blood Pressure 149/101 H Blood Pressure Mean 117 Blood Pressure Position Pulse Oximetry 99 Oxygen Delivery Method Room Air Sepsis Recent Fever Within 48 Hours Sepsis New/Unexplained Change in Mental Status Sepsis Action Taken by Skilled Nursing Medications Current Medication List: was personally reviewed by me Laboratory Data Attestation: I reviewed the patient's lab results. 03/30/23 20:36 03/30/23 20:36 Lab Results 03/30/23 03/30/23 03/30/23 Range/Units 20:19 20:36 20:36 WBC 9.82 (4.8-10.8) K/ul RBC 3.86 L (4.70-6.10) M/uL Hgb 11.2 L (14.0-18.0) g/dl Hct 31.8 L (42.0-52.0) % MCV 82.4 (80.0-100.0) fL MCH 29.0 (25.0-34.0) pg MCHC 35.2 (32.0-36.0) g/dL RDW Std Deviation 41.1 (36.4-46.3) fL RDW Coeff of [place] 13.8 (11.5-14.5) % Plt Count 68 L (130-400) K/uL MPV 12.5 H (9.4-12.4) fL Immature Gran % (Auto) 1.5 % Neut % (Auto) 79.4 % Lymph % (Auto) 10.8 % Placer % (Auto) 5.8 % Eos % (Auto) 2.3 % Baso % (Auto) 0.2 % Neut # (Auto) 7.79 H (1.40-6.50) K/uL Lymph # (Auto) 1.06 L (1.20-3.40) K/uL Placer # (Auto) 0.57 (0.11-0.59) K/uL Eos # (Auto) 0.23 (0.00-0.50) K/uL Baso # (Auto) 0.02 (0.00-0.20) K/uL Immature Gran # (Auto) 0.15 (0.01-0.20) K/uL PT 14.6 H (9.0-12.0) Seconds INR 1.4 H (0.9-1.1) APTT 31.0 (21.0-31.0) Seconds PTT Ratio 1.1 D-Dimer > 74242 H* (0-500) ug/L FEU VBG pH (7.36-7.41) VBG pCO2 (38-50) mmHg VBG pO2 mmHg VBG HCO3 mmol/L VBG O2 Saturation % VBG Base Excess mEq/L Sodium (136-145) mmol/L Potassium (3.5-5.1) mmol/L Chloride (98-107) mmol/L Carbon Dioxide (21-32) mmol/L Anion Gap (3-11) BUN (6-23) mg/dl Creatinine (0.6-1.4) mg/dl Est Cr Clr Drug Dosing ml/min Est GFR ( Amer) ml/min Est GFR (Non-Af Amer) ml/min BUN/Creatinine Ratio (10-20) Glucose (70-99(Fasting)) mg/dl Lactate (0.4-2.0) mmol/L Calcium (8.6-10.3) mg/dl Magnesium (1.7-2.4) mg/dl Total Bilirubin (0.2-1.0) mg/dl AST (13-39) U/L ALT (7-52) U/L Alkaline Phosphatase (34-104) U/L Troponin I High Sens (0-20) pg/ml C-Reactive Protein (0-0.5) mg/dl Total Protein (6.0-8.3) gm/dl Albumin (3.4-5.0) gm/dl Globulin (2.5-4.0) gm/dl Albumin/Globulin Ratio (0.9-2) Procalcitonin (0-0.5) ng/ml Urine Color Urine Appearance (Clear) Urine pH (4.5-7.5) Ur Specific [place] (1.000-1.030) Urine Protein (Negative) Urine Glucose (UA) (Negative) Urine Ketones (Negative) Urine Blood (Negative) Urine Nitrite (Negative) Urine Bilirubin (Negative) Urine Urobilinogen (Negative) Ur Leukocyte Esterase (Negative) Urine WBC (Auto) (0-5) /hpf Urine RBC (Auto) (0-4) /hpf U Hyaline Cast (Auto) (0-5) /lpf U Epithel Cells (Auto) (0-5) /lpf Urine Bacteria (Auto) (Negative) Adenovirus (PCR) Not Detected (NotDetected) B. pertussis DNA (PCR) Not Detected (NotDetected) B.parapertussis DNA PCR Not Detected (NotDetected) C. pneumoniae DNA (PCR) Not Detected (NotDetected) Coronavirus OC43 (PCR) Not Detected (NotDetected) Coronavirus HKU1 (PCR) Not Detected (NotDetected) Coronavirus 229E (PCR) Not Detected (NotDetected) SARS-CoV-2 (PCR) Not Detected (NotDetected) Coronavirus NL63 (PCR) Not Detected (NotDetected) Human Metapneumovir PCR Not Detected (NotDetected) Influenza Type A (PCR) Not Detected (NotDetected) Influenza Type B (PCR) Not Detected (NotDetected) M. pneumoniae (PCR) Not Detected (NotDetected) Parainfluenza 1 (PCR) Not Detected (NotDetected) Parainfluenza 2 (PCR) Not Detected (NotDetected) Parainfluenza 3 (PCR) Not Detected (NotDetected) Parainfluenza 4 (PCR) Not Detected (NotDetected) RSV (PCR) Not Detected (NotDetected) Entero/Rhino (PCR) Not Detected (NotDetected) 03/30/23 03/30/23 03/30/23 Range/Units 20:36 20:36 20:36 WBC (4.8-10.8) K/ul RBC (4.70-6.10) M/uL Hgb (14.0-18.0) g/dl Hct (42.0-52.0) % MCV (80.0-100.0) fL MCH (25.0-34.0) pg MCHC (32.0-36.0) g/dL RDW Std Deviation (36.4-46.3) fL RDW Coeff of [place] (11.5-14.5) % Plt Count (130-400) K/uL MPV (9.4-12.4) fL Immature Gran % (Auto) % Neut % (Auto) % Lymph % (Auto) % Placer % (Auto) % Eos % (Auto) % Baso % (Auto) % Neut # (Auto) (1.40-6.50) K/uL Lymph # (Auto) (1.20-3.40) K/uL Placer # (Auto) (0.11-0.59) K/uL Eos # (Auto) (0.00-0.50) K/uL Baso # (Auto) (0.00-0.20) K/uL Immature Gran # (Auto) (0.01-0.20) K/uL PT (9.0-12.0) Seconds INR (0.9-1.1) APTT (21.0-31.0) Seconds PTT Ratio D-Dimer (0-500) ug/L FEU VBG pH (7.36-7.41) VBG pCO2 (38-50) mmHg VBG pO2 mmHg VBG HCO3 mmol/L VBG O2 Saturation % VBG Base Excess mEq/L Sodium 131 L (136-145) mmol/L Potassium 3.2 L (3.5-5.1) mmol/L Chloride 95 L (98-107) mmol/L Carbon Dioxide 28 (21-32) mmol/L Anion Gap 8 (3-11) BUN 8 (6-23) mg/dl Creatinine 0.76 (0.6-1.4) mg/dl Est Cr Clr Drug Dosing 129.2 ml/min Est GFR ( Amer) 132.3 ml/min Est GFR (Non-Af Amer) 114.1 ml/min BUN/Creatinine Ratio 10.5 (10-20) Glucose 115 H (70-99(Fasting)) mg/dl Lactate 1.5 (0.4-2.0) mmol/L Calcium 7.9 L (8.6-10.3) mg/dl Magnesium 1.8 (1.7-2.4) mg/dl Total Bilirubin 1.2 H (0.2-1.0) mg/dl AST 102 H (13-39) U/L ALT 59 H (7-52) U/L Alkaline Phosphatase 164 H (34-104) U/L Troponin I High Sens 2345.7 H* (0-20) pg/ml C-Reactive Protein 7.26 H (0-0.5) mg/dl Total Protein 6.3 (6.0-8.3) gm/dl Albumin 3.6 (3.4-5.0) gm/dl Globulin 2.7 (2.5-4.0) gm/dl Albumin/Globulin Ratio 1.3 (0.9-2) Procalcitonin 0.21 (0-0.5) ng/ml Urine Color Urine Appearance (Clear) Urine pH (4.5-7.5) Ur Specific [place] (1.000-1.030) Urine Protein (Negative) Urine Glucose (UA) (Negative) Urine Ketones (Negative) Urine Blood (Negative) Urine Nitrite (Negative) Urine Bilirubin (Negative) Urine Urobilinogen (Negative) Ur Leukocyte Esterase (Negative) Urine WBC (Auto) (0-5) /hpf Urine RBC (Auto) (0-4) /hpf U Hyaline Cast (Auto) (0-5) /lpf U Epithel Cells (Auto) (0-5) /lpf Urine Bacteria (Auto) (Negative) Adenovirus (PCR) (NotDetected) B. pertussis DNA (PCR) (NotDetected) B.parapertussis DNA PCR (NotDetected) C. pneumoniae DNA (PCR) (NotDetected) Coronavirus OC43 (PCR) (NotDetected) Coronavirus HKU1 (PCR) (NotDetected) Coronavirus 229E (PCR) (NotDetected) SARS-CoV-2 (PCR) (NotDetected) Coronavirus NL63 (PCR) (NotDetected) Human Metapneumovir PCR (NotDetected) Influenza Type A (PCR) (NotDetected) Influenza Type B (PCR) (NotDetected) M. pneumoniae (PCR) (NotDetected) Parainfluenza 1 (PCR) (NotDetected) Parainfluenza 2 (PCR) (NotDetected) Parainfluenza 3 (PCR) (NotDetected) Parainfluenza 4 (PCR) (NotDetected) RSV (PCR) (NotDetected) Entero/Rhino (PCR) (NotDetected) 03/30/23 03/30/23 03/30/23 Range/Units 20:40 21:59 22:44 WBC (4.8-10.8) K/ul RBC (4.70-6.10) M/uL Hgb (14.0-18.0) g/dl Hct (42.0-52.0) % MCV (80.0-100.0) fL MCH (25.0-34.0) pg MCHC (32.0-36.0) g/dL RDW Std Deviation (36.4-46.3) fL RDW Coeff of [place] (11.5-14.5) % Plt Count (130-400) K/uL MPV (9.4-12.4) fL Immature Gran % (Auto) % Neut % (Auto) % Lymph % (Auto) % [place] % (Auto) % Eos % (Auto) % Baso % (Auto) % Neut # (Auto) (1.40-6.50) K/uL Lymph # (Auto) (1.20-3.40) K/uL Placer # (Auto) (0.11-0.59) K/uL Eos # (Auto) (0.00-0.50) K/uL Baso # (Auto) (0.00-0.20) K/uL Immature Gran # (Auto) (0.01-0.20) K/uL PT (9.0-12.0) Seconds INR (0.9-1.1) APTT (21.0-31.0) Seconds PTT Ratio D-Dimer (0-500) ug/L FEU VBG pH 7.45 H (7.36-7.41) VBG pCO2 41 (38-50) mmHg VBG pO2 27 mmHg VBG HCO3 29 mmol/L VBG O2 Saturation < 60.0 % VBG Base Excess 4.1 mEq/L Sodium (136-145) mmol/L Potassium (3.5-5.1) mmol/L Chloride (98-107) mmol/L Carbon Dioxide (21-32) mmol/L Anion Gap (3-11) BUN (6-23) mg/dl Creatinine (0.6-1.4) mg/dl Est Cr Clr Drug Dosing ml/min Est GFR ( Amer) ml/min Est GFR (Non-Af Amer) ml/min BUN/Creatinine Ratio (10-20) Glucose (70-99(Fasting)) mg/dl Lactate (0.4-2.0) mmol/L Calcium (8.6-10.3) mg/dl Magnesium (1.7-2.4) mg/dl Total Bilirubin (0.2-1.0) mg/dl AST (13-39) U/L ALT (7-52) U/L Alkaline Phosphatase (34-104) U/L Troponin I High Sens 2206.1 H* (0-20) pg/ml C-Reactive Protein (0-0.5) mg/dl Total Protein (6.0-8.3) gm/dl Albumin (3.4-5.0) gm/dl Globulin (2.5-4.0) gm/dl Albumin/Globulin Ratio (0.9-2) Procalcitonin (0-0.5) ng/ml Urine Color Yellow Urine Appearance Clear (Clear) Urine pH 7.5 (4.5-7.5) Ur Specific [place] 1.010 (1.000-1.030) Urine Protein 1+ H (Negative) Urine Glucose (UA) Negative (Negative) Urine Ketones 2+ H (Negative) Urine Blood Negative (Negative) Urine Nitrite Negative (Negative) Urine Bilirubin Negative (Negative) Urine Urobilinogen Negative (Negative) Ur Leukocyte Esterase Negative (Negative) Urine WBC (Auto) 1-5 (0-5) /hpf Urine RBC (Auto) 0-4 (0-4) /hpf U Hyaline Cast (Auto) 1-5 (0-5) /lpf U Epithel Cells (Auto) 20-30 H (0-5) /lpf Urine Bacteria (Auto) Negative (Negative) Adenovirus (PCR) (NotDetected) B. pertussis DNA (PCR) (NotDetected) B.parapertussis DNA PCR (NotDetected) C. pneumoniae DNA (PCR) (NotDetected) Coronavirus OC43 (PCR) (NotDetected) Coronavirus HKU1 (PCR) (NotDetected) Coronavirus 229E (PCR) (NotDetected) SARS-CoV-2 (PCR) (NotDetected) Coronavirus NL63 (PCR) (NotDetected) Human Metapneumovir PCR (NotDetected) Influenza Type A (PCR) (NotDetected) Influenza Type B (PCR) (NotDetected) M. pneumoniae (PCR) (NotDetected) Parainfluenza 1 (PCR) (NotDetected) Parainfluenza 2 (PCR) (NotDetected) Parainfluenza 3 (PCR) (NotDetected) Parainfluenza 4 (PCR) (NotDetected) RSV (PCR) (NotDetected) Entero/Rhino (PCR) (NotDetected) Administered Medications Discontinued Medications Sodium Chloride (Nss) 500 mls @ 999 mls/hr IV .Q31M STA Stop: 03/30/23 20:26 Last Infusion: 03/30/23 22:10 Dose: 0 mls/hr Documented By: Admin: 03/30/23 20:58 Dose: 999 mls/hr Documented By: JEWEL Sodium Chloride (Nss) 1,000 mls @ 999 mls/hr IV .Q1H1M ONE Stop: 03/30/23 21:32 Last Infusion: 03/30/23 22:09 Dose: 0 mls/hr Documented By: Admin: 03/30/23 20:58 Dose: 999 mls/hr Documented By: JEWEL Piperacillin Sod/Tazobactam Sod (Zosyn) 4.5 gm in 100 mls @ 200 mls/hr IV NOW ONE Stop: 03/30/23 22:09 Last Infusion: 03/30/23 23:10 Dose: 0 mls/hr Documented By: Admin: 03/30/23 22:40 Dose: 200 mls/hr Documented By: AMADOR Ioversol (Optiray 320 125ml) 118 ml IV ONCE ONE Stop: 03/30/23 22:29 Last Admin: 03/30/23 22:28 Dose: 118 ml Documented By: NENA Imaging Data Attestation: I personally reviewed and interpreted this imaging study as follows: My Impression: 1 view chest x-ray was obtained in the emergency department. My interpretation is haziness at the left base, no free air, final report pending. Radiologist's Impression: Chest CTA 03/30/23 21:40 Exam(s): CTA CHEST EXAM: CT Angiography Chest With Intravenous Contrast CLINICAL HISTORY: Reason for exam: PE. TECHNIQUE: Axial computed tomographic angiography images of the chest with intravenous contrast. CTDI is 30.28 mGy and DLP is 728.65 mGy-cm. Automated exposure control was utilized for the study. A dose lowering technique was utilized adhering to the principles of ALARA. MIP reconstructed images were created and reviewed. COMPARISON: No relevant prior studies available. FINDINGS: Pulmonary arteries: Unremarkable. No acute pulmonary embolism. Aorta: No acute findings. No thoracic aortic aneurysm. Lungs: Known LEFT perihilar mass/malignancy, measuring 5.5 x 4.3 cm. Airspace consolidation at the LEFT lung base, concerning for aspiration pneumonia. Moderate LEFT parapneumonic effusion. Pleural space: Unremarkable. No significant effusion. No pneumothorax. Heart: Unremarkable. No cardiomegaly. No significant pericardial effusion. No evidence of RV dysfunction. Bones/joints: No acute fracture. No dislocation. Soft tissues: Unremarkable. Lymph nodes: Unremarkable. No enlarged lymph nodes. Liver: Metallic densities in the liver, correlate for underlying post treatment change. Underlying masses poorly visualized. Correlate with prior imaging. IMPRESSION: 1. No acute pulmonary embolism. 2. Known LEFT perihilar mass/malignancy, measuring 5.5 x 4.3 cm. 3. Airspace consolidation at the LEFT lung base, concerning for aspiration pneumonia. Moderate LEFT parapneumonic effusion. 4. Metallic densities in the liver, correlate for underlying post treatment change. Underlying masses poorly visualized. Correlate with prior imaging. Electronically signed by: Rikki Curran MD 03/30/23 23:46 PM Discharge Plan Visit Data Chief Complaint: Shortness of Breath/Dyspnea Stated Complaint: SHORTNESS OF BREATH ED Provider: Collin Russell Discharge Problem: Non-ST elevation TN (NSTEMI), Pneumonia, Pleural effusion, Abnormal EKG, Tachy cardia Patient Disposition: Being Evaluated by Hospitalist Forms Stand Alone Forms: [facility] Prescriptions Prescriptions: No Action oxycodone 5 mg capsule 5 mg PO Q6H PRN benzonatate 100 mg capsule 200 mg PO TID MDD 600 mg PRN (Reason: cough) Qty: 90 0RF Rx Instructions: Take 1 to 2 capsules up to 3 times a day. (DME) Incentive Spirometer Misc See Rx Instructions .MEDSUPPLY Qty: 1 0RF Rx Instructions: As directed amlodipine 10 mg tablet 10 mg PO DAILY potassium chloride 20 mEq packet 40 meq PO DAILY Qty: 30 0RF Referrals Referrals: Galindo Frost [Primary Care Provider] -
[2023-03-30] MEDS ORDERED: SODIUM CHLORIDE 0.9% 1,000 ML IV ONE ×2 (20:32→21:40)
[2023-03-30 20:48] LABS: Base Excess VBG 4.1 mEq/L; HCO3 VBG 29 mmol/L; Oxygen Saturation VBG < 60.0 %; PCO2 VBG 41 mmHg (38-50); PO2 VBG 27 mmHg; pH VBG 7.45 (7.36-7.41)
[2023-03-30 20:59] LABS: Basophils # (auto) 0.02 K/uL (0.00-0.20); Basophils % (auto) 0.2 %; Eosinophils # (auto) 0.23 K/uL (0.00-0.50); Eosinophils % (auto) 2.3 %; Hematocrit (blood only) 31.8 % (42.0-52.0); Hemoglobin 11.2 g/dl (14.0-18.0); Immature Granulocytes # (auto) 0.15 K/uL (0.01-0.20); Immature Granulocytes % (auto) 1.5 %; Lymphocytes # (auto) 1.06 K/uL (1.20-3.40); Lymphocytes % (auto) 10.8 %; Mean Corpuscular Hgb Conc 35.2 g/dL (32.0-36.0); Mean Corpuscular Volume 82.4 fL (80.0-100.0); Mean Platelet Volume 12.5 fL (9.4-12.4); Monocytes # (auto) 0.57 K/uL (0.11-0.59); Monocytes % (auto) 5.8 %; Neutrophils # (auto) 7.79 K/uL (1.40-6.50); Neutrophils % (auto) 79.4 %; Platelet Count 68 K/uL (130-400); RDW Coefficient of Variation 13.8 % (11.5-14.5); RDW Standard Deviation 41.1 fL (36.4-46.3); Red Blood Count 3.86 M/uL (4.70-6.10); White Blood Count 9.82 K/ul (4.8-10.8)
[2023-03-30 21:17] LABS: Albumin Globulin Ratio 1.3 (0.9-2); Albumin Level 3.6 gm/dl (3.4-5.0); BUN Creatinine Ratio 10.5 (10-20); Bilirubin,Total 1.2 mg/dl (0.2-1.0); C Reactive Protein 7.26 mg/dl (0-0.5); Calcium 7.9 mg/dl (8.6-10.3); Creatinine Clr Calc Pharmacy 129.2 ml/min; Est GFR (African American) 132.3 ml/min; Est GFR (Non-African American) 114.1 ml/min; Globulin 2.7 gm/dl (2.5-4.0); Magnesium 1.8 mg/dl (1.7-2.4); Potassium 3.2 mmol/L (3.5-5.1); Total Protein 6.3 gm/dl (6.0-8.3)
[2023-03-30 21:26] LABS: Adenovirus PCR Not Detected (NotDetected); Bordetella parapertussis PCR Not Detected (NotDetected); Bordetella pertussis PCR Not Detected (NotDetected); Chlamydia pneumoniae PCR Not Detected (NotDetected); Coronavirus 229E PCR Not Detected (NotDetected); Coronavirus CoV-2 (COVID19)PCR Not Detected (NotDetected); Coronavirus HKU1 PCR Not Detected (NotDetected); Coronavirus NL63 PCR Not Detected (NotDetected); Coronavirus OC43PCR Not Detected (NotDetected); Human Metapneumovirus PCR Not Detected (NotDetected); Influenza A PCR Not Detected (NotDetected); Influenza B PCR Not Detected (NotDetected); Mycoplasma pneumoniae PCR Not Detected (NotDetected); Parainfluenza Virus 1 PCR Not Detected (NotDetected); Parainfluenza Virus 2 PCR Not Detected (NotDetected); Parainfluenza Virus 3 PCR Not Detected (NotDetected); Parainfluenza Virus 4 PCR Not Detected (NotDetected); Respiratory Syncytial VirusPCR Not Detected (NotDetected); Rhinovirus/Enterovirus PCR Not Detected (NotDetected)
[2023-03-30 21:33] LABS: INR 1.4 (0.9-1.1); Partial Thromboplastin Ratio 1.1; Prothrombin Time 14.6 Seconds (9.0-12.0)
[2023-03-30 21:38] LABS: D Dimer > 35200 ug/L FEU (0-500)
[2023-03-30] MEDS ORDERED: PIPERACILLIN/TAZOBACTAM 4.5 GM/100 ML BAG IV ONE (21:40)
[2023-03-30 22:21] LABS: Appearance Urine Clear (Clear); Bacteria Urine Automated Negative (Negative); Bilirubin Urine Negative (Negative); Blood Urine Negative (Negative); Color Urine Yellow; Epithelial Cell Urine Auto 20-30 /lpf (0-5); Glucose Urine UA Negative (Negative); Ketones Urine 2+ (Negative); Leukocyte Esterase Urine Negative (Negative); Nitrite Urine Negative (Negative); RBC Urine Automated 0-4 /hpf (0-4); Urobilinogen Urine Negative (Negative); pH Urine 7.5 (4.5-7.5)
[2023-03-30 22:23] LABS: Protein Urine 1+ (Negative)
[2023-03-30] MEDS ORDERED: OPTIRAY 320 125ml IV ONE (22:28)
[2023-03-30 22:36] LABS: Troponin I High Sensitivity 2345.7 pg/ml (0-20)
--- NOTE | 2023-03-30 23:47 | CT Scan Report ---
Exam(s): CTA CHEST EXAM: CT Angiography Chest With Intravenous Contrast CLINICAL HISTORY: Reason for exam: PE. TECHNIQUE: Axial computed tomographic angiography images of the chest with intravenous contrast. CTDI is 30.28 mGy and DLP is 728.65 mGy-cm. Automated exposure control was utilized for the study. A dose lowering technique was utilized adhering to the principles of ALARA. MIP reconstructed images were created and reviewed. COMPARISON: No relevant prior studies available. FINDINGS: Pulmonary arteries: Unremarkable. No acute pulmonary embolism. Aorta: No acute findings. No thoracic aortic aneurysm. Lungs: Known LEFT perihilar mass/malignancy, measuring 5.5 x 4.3 cm. Airspace consolidation at the LEFT lung base, concerning for aspiration pneumonia. Moderate LEFT parapneumonic effusion. Pleural space: Unremarkable. No significant effusion. No pneumothorax. Heart: Unremarkable. No cardiomegaly. No significant pericardial effusion. No evidence of RV dysfunction. Bones/joints: No acute fracture. No dislocation. Soft tissues: Unremarkable. Lymph nodes: Unremarkable. No enlarged lymph nodes. Liver: Metallic densities in the liver, correlate for underlying post treatment change. Underlying masses poorly visualized. Correlate with prior imaging. IMPRESSION: 1. No acute pulmonary embolism. 2. Known LEFT perihilar mass/malignancy, measuring 5.5 x 4.3 cm. 3. Airspace consolidation at the LEFT lung base, concerning for aspiration pneumonia. Moderate LEFT parapneumonic effusion. 4. Metallic densities in the liver, correlate for underlying post treatment change. Underlying masses poorly visualized. Correlate with prior imaging. Electronically signed by: Rikki Curran MD 03/30/23 23:46 PM
[2023-03-31] MEDS ORDERED: SODIUM CHLORIDE 0.9% 250 ML IV ONE (00:01)
[2023-03-31] MEDS ORDERED: ASPIRIN CHEW 324 MG PO STA (00:14)
[2023-03-31] MEDS ORDERED: METOPROLOL TARTRATE 1 MG/ML VIAL IV ONE (01:20)
[2023-03-31] MEDS ORDERED: POTASSIUM CHLORIDE CRTAB 20 MEQ TABCR PO STA (01:26)
--- NOTE | 2023-03-31 01:40 | History & Physical Report ---
Date of Service March 31, 2023 Assessment & Plan (1) Non-ST elevation TN (NSTEMI): (2) Pneumonia: (3) Mixed restrictive and obstructive lung disease: (4) Adenocarcinoma of lung: (5) Hypertension: Plan NSTEMI/hypertension/tachycardia/hypokalemia placed on normal saline The patient will be admitted to telemetry for serial cardiac enzymes, serial EKG's, cardiac rhythm monitoring and a 2-D echocardiogram with Dopplers. Patient had improved heart rate with Lopressor 5 mg IV, and resolution of T wave inversion noted in lead III on EKG Troponin initially 2345.7, with follow-up 2206.1 Stop amlodipine 10 mg daily Start metoprolol succinate 25 mg p.o. every morning Given aspirin 324 mg in the ED, 2750 mL of normal saline Potassium 3.2 on admission, treating with Klor-Con 40 mEq p.o., and potassium chloride 10 mEq IV x2 Repeat renal function panel and magnesium levels in a.m. Pneumonia and left lower lobe/adenocarcinoma of left lung- Perihilar mass noted as before on CTA chest, with concern regarding left lower lobe aspiration pneumonia Continue Zosyn 4.5 g IV every 8 hours begun in ED D-dimer 35,200, with CTA negative for PE Check MRSA swab Thrombocytopenia- Platelets 68 on admission His Eliquis had been held, which he had restarted recently. We will hold temporarily and follow platelet studies History of Present Illness Chief Complaint: The patient presents to the emergency department with complaint of shortness of breath that developed a few days ago and has progressively worsened. Primary Care Provider: Galindo Frost The patient is a 42-year-old male with a past medical history including mixed restrictive and obstructive lung disease, left pleural effusion, hypokalemia, mediastinal lymphadenopathy, lung adenocarcinoma of left lung, and hypertension. The patient presents the emergency department with shortness of breath that. He does have some intermittent chest pain associated. He denies any associated numbness or tingling in arms or legs, and denies any recent travels or sick exposures the has developed and progressed over the past few days Allergies Allergy/AdvReac Type Severity Reaction Status Date / Time milk AdvReac Intermediate Gastrointestinal Verified 11/05/22 11:58 Upset Home Medications Medication Instructions Recorded Confirmed Type amlodipine 10 mg tablet 10 mg PO DAILY 09/21/21 03/31/23 History oxycodone 5 mg capsule 5 mg PO Q6H PRN Pain 10/09/21 03/31/23 History Incentive Spirometer #1 ea 10/16/21 11/05/22 Rx apixaban 5 mg tablet (Eliquis) mg 03/31/23 History fentanyl 12 mcg/hr transdermal mcg transdermal Q72H 03/31/23 History patch pantoprazole 40 mg tablet,delayed 40 mg PO 1XD 03/31/23 03/31/23 History release Past Med/Surg History Medical History Abnormal CT of the chest Adenocarcinoma of lung Cavitary lesion of lung Hypertension Hypokalemia LAD (lymphadenopathy), mediastinal No chronic diseases present Pleural effusion on left Surgical History History of surgery No significant past surgical history For undescended testes Family History Father Cancer from Lung Cancer at 64 y/o Mother No problems noted. Daughter No problems noted. 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; Feels Safe at Home: Yes Diet: regular caffeine: No during the past year weight has: remained stable Assistive Devices: Glasses Review of Systems Review of Systems: The patient denies palpitations, cough, lower extremity swelling, sore throat, fevers, chills, sweats, nausea, vomiting, diarrhea , constipation, abdominal pain, pelvic pain, blood in urine or stool, dysuria, urinary frequency or urgency, lightheadedness, dizziness, headache, memory loss, loss of consciousness, rash, abnormal bruising or bleeding, imbalance, focal or generalized weakness, numbness or tingling in arms or legs, generalized arthralgias or myalgias, back or neck pain, or night sweats. The review of systems is otherwise negative other than for that already noted above, and at least 10 systems have been reviewed. Physical Exam Physical Exam: The patient is awake, alert and oriented 3, well developed and well nourished, normocephalic and atraumatic, lying in bed and in no acute distress. HEENT--PERRL, EOMI, mucous membranes and oropharynx . Neck--supple. No JVD. No bruits. Thyroid normal, trachea midline, no adenopathy. Heart--normal S1 and S2. No murmurs, rubs or gallops. Lungs--few coarse breath sounds bilaterally, left greater than right. No respiratory distress, no accessory muscle use. Abdomen--normal bowel sounds and soft. Nontender. Nondistended, no hernias or masses, no organomegaly. Extremities--no cyanosis or clubbing. No edema. Dermatologic--normal skin turgor, normal color, no abnormal lymph nodes, no rash. Neurologic--cranial nerves II through XII grossly intact. Rheumatologic--normal range of motion. Psychiatric--normal affect. Normal Results & Data Results & Data Vital Signs (Past 12 Hours) Vital Signs Temp Pulse Pulse Resp BP Pulse Ox O2 Del Method 03/31/23 01:00 120 H 19 149/101 H 99 Nasal Cannula 03/31/23 00:30 124 H 21 145/99 H 99 Nasal Cannula 03/31/23 00:00 129 H 25 H 145/101 H 96 Room Air 03/30/23 23:30 124 H 17 144/97 H 97 Room Air 03/30/23 23:00 121 H 22 151/100 H 98 03/30/23 22:32 126 H 19 148/99 H 97 03/30/23 22:30 97 03/30/23 22:00 121 H 28 H 97 03/30/23 21:30 122 H 20 152/102 H 96 03/31/23 00:00 119 H 99 Nasal Cannula 03/31/23 00:03 132 H 03/30/23 22:00 124 H 98 Room Air 03/30/23 19:59 133 H 03/30/23 21:00 119 H 22 149/101 H 99 Room Air 03/30/23 20:19 97 Room Air 03/30/23 20:16 37.3 C 03/30/23 20:02 130 H 23 159/110 H 98 Room Air 03/30/23 20:00 128 H 19 03/30/23 19:59 136 H 23 03/30/23 20:14 37.3 C 124 H 20 97 Room Air 03/30/23 19:30 Room Air 03/30/23 19:30 98 Room Air 03/30/23 19:19 37 C 142 H 30 H 113/82 94 Room Air O2 Flow Rate 03/31/23 01:00 2 03/31/23 00:30 2 03/31/23 00:00 03/30/23 23:30 03/30/23 23:00 03/30/23 22:32 03/30/23 22:30 03/30/23 22:00 03/30/23 21:30 03/31/23 00:00 2 03/31/23 00:03 03/30/23 22:00 03/30/23 19:59 03/30/23 21:00 03/30/23 20:19 03/30/23 20:16 03/30/23 20:02 03/30/23 20:00 03/30/23 19:59 03/30/23 20:14 03/30/23 19:30 03/30/23 19:30 03/30/23 19:19 Laboratory Results Laboratory Results WBC 9.82 K/ul (4.8-10.8) 03/30/23 20:36 RBC 3.86 M/uL (4.70-6.10) L 03/30/23 20:36 Hgb 11.2 g/dl (14.0-18.0) L 03/30/23 20:36 Hct 31.8 % (42.0-52.0) L 03/30/23 20:36 MCV 82.4 fL (80.0-100.0) 03/30/23 20:36 MCH 29.0 pg (25.0-34.0) 03/30/23 20:36 MCHC 35.2 g/dL (32.0-36.0) 03/30/23 20:36 RDW Std Deviation 41.1 fL (36.4-46.3) 03/30/23 20:36 RDW Coeff of [place] 13.8 % (11.5-14.5) 03/30/23 20:36 Plt Count 68 K/uL (130-400) L 03/30/23 20:36 MPV 12.5 fL (9.4-12.4) H 03/30/23 20:36 Immature Gran % (Auto) 1.5 % 03/30/23 20:36 Neut % (Auto) 79.4 % 03/30/23 20:36 Lymph % (Auto) 10.8 % 03/30/23 20:36 [place] % (Auto) 5.8 % 03/30/23 20:36 Eos % (Auto) 2.3 % 03/30/23 20:36 Baso % (Auto) 0.2 % 03/30/23 20:36 Neut # (Auto) 7.79 K/uL (1.40-6.50) H 03/30/23 20:36 Lymph # (Auto) 1.06 K/uL (1.20-3.40) L 03/30/23 20:36 [place] # (Auto) 0.57 K/uL (0.11-0.59) 03/30/23 20:36 Eos # (Auto) 0.23 K/uL (0.00-0.50) 03/30/23 20:36 Baso # (Auto) 0.02 K/uL (0.00-0.20) 03/30/23 20:36 Immature Gran # (Auto) 0.15 K/uL (0.01-0.20) 03/30/23 20:36 PT 14.6 Seconds (9.0-12.0) H 03/30/23 20:36 INR 1.4 (0.9-1.1) H 03/30/23 20:36 APTT 31.0 Seconds (21.0-31.0) 03/30/23 20:36 PTT Ratio 1.1 03/30/23 20:36 D-Dimer > 50748 ug/L FEU (0-500) H* 03/30/23 20:36 VBG pH 7.45 (7.36-7.41) H 03/30/23 20:40 VBG pCO2 41 mmHg (38-50) 03/30/23 20:40 VBG pO2 27 mmHg 03/30/23 20:40 VBG HCO3 29 mmol/L 03/30/23 20:40 VBG O2 Saturation < 60.0 % 03/30/23 20:40 VBG Base Excess 4.1 mEq/L 03/30/23 20:40 Sodium 131 mmol/L (136-145) L 03/30/23 20:36 Potassium 3.2 mmol/L (3.5-5.1) L 03/30/23 20:36 Chloride 95 mmol/L (98-107) L 03/30/23 20:36 Carbon Dioxide 28 mmol/L (21-32) 03/30/23 20:36 Anion Gap 8 (3-11) 03/30/23 20:36 BUN 8 mg/dl (6-23) 03/30/23 20:36 Creatinine 0.76 mg/dl (0.6-1.4) 03/30/23 20:36 Est Cr Clr Drug Dosing 129.2 ml/min 03/30/23 20:36 Est GFR ( Amer) 132.3 ml/min 03/30/23 20:36 Est GFR (Non-Af Amer) 114.1 ml/min 03/30/23 20:36 BUN/Creatinine Ratio 10.5 (10-20) 03/30/23 20:36 Glucose 115 mg/dl (70-99(Fasting)) H 03/30/23 20:36 Lactate 1.5 mmol/L (0.4-2.0) 03/30/23 20:36 Calcium 7.9 mg/dl (8.6-10.3) L 03/30/23 20:36 Magnesium 1.8 mg/dl (1.7-2.4) 03/30/23 20:36 Total Bilirubin 1.2 mg/dl (0.2-1.0) H 03/30/23 20:36 AST 102 U/L (13-39) H 03/30/23 20:36 ALT 59 U/L (7-52) H 03/30/23 20:36 Alkaline Phosphatase 164 U/L (34-104) H 03/30/23 20:36 Troponin I High Sens 2206.1 pg/ml (0-20) H* 03/30/23 22:44 C-Reactive Protein 7.26 mg/dl (0-0.5) H 03/30/23 20:36 Total Protein 6.3 gm/dl (6.0-8.3) 03/30/23 20:36 Albumin 3.6 gm/dl (3.4-5.0) 03/30/23 20:36 Globulin 2.7 gm/dl (2.5-4.0) 03/30/23 20:36 Albumin/Globulin Ratio 1.3 (0.9-2) 03/30/23 20:36 Procalcitonin 0.21 ng/ml (0-0.5) 03/30/23 20:36 Urine Color Yellow 03/30/23 21:59 Urine Appearance Clear (Clear) 03/30/23 21:59 Urine pH 7.5 (4.5-7.5) 03/30/23 21:59 Ur Specific [place] 1.010 (1.000-1.030) 03/30/23 21:59 Urine Protein 1+ (Negative) H 03/30/23 21:59 Urine Glucose (UA) Negative (Negative) 03/30/23 21:59 Urine Ketones 2+ (Negative) H 03/30/23 21:59 Urine Blood Negative (Negative) 03/30/23 21:59 Urine Nitrite Negative (Negative) 03/30/23 21:59 Urine Bilirubin Negative (Negative) 03/30/23 21:59 Urine Urobilinogen Negative (Negative) 03/30/23 21:59 Ur Leukocyte Esterase Negative (Negative) 03/30/23 21:59 Urine WBC (Auto) 1-5 /hpf (0-5) 03/30/23 21:59 Urine RBC (Auto) 0-4 /hpf (0-4) 03/30/23 21:59 U Hyaline Cast (Auto) 1-5 /lpf (0-5) 03/30/23 21:59 U Epithel Cells (Auto) 20-30 /lpf (0-5) H 03/30/23 21:59 Urine Bacteria (Auto) Negative (Negative) 03/30/23 21:59 Adenovirus (PCR) Not Detected (NotDetected) 03/30/23 20:19 B. pertussis DNA (PCR) Not Detected (NotDetected) 03/30/23 20:19 B.parapertussis DNA PCR Not Detected (NotDetected) 03/30/23 20:19 C. pneumoniae DNA (PCR) Not Detected (NotDetected) 03/30/23 20:19 Coronavirus OC43 (PCR) Not Detected (NotDetected) 03/30/23 20:19 Coronavirus HKU1 (PCR) Not Detected (NotDetected) 03/30/23 20:19 Coronavirus 229E (PCR) Not Detected (NotDetected) 03/30/23 20:19 SARS-CoV-2 (PCR) Not Detected (NotDetected) 03/30/23 20:19 Coronavirus NL63 (PCR) Not Detected (NotDetected) 03/30/23 20:19 Human Metapneumovir PCR Not Detected (NotDetected) 03/30/23 20:19 Influenza Type A (PCR) Not Detected (NotDetected) 03/30/23 20:19 Influenza Type B (PCR) Not Detected (NotDetected) 03/30/23 20:19 M. pneumoniae (PCR) Not Detected (NotDetected) 03/30/23 20:19 Parainfluenza 1 (PCR) Not Detected (NotDetected) 03/30/23 20:19 Parainfluenza 2 (PCR) Not Detected (NotDetected) 03/30/23 20:19 Parainfluenza 3 (PCR) Not Detected (NotDetected) 03/30/23 20:19 Parainfluenza 4 (PCR) Not Detected (NotDetected) 03/30/23 20:19 RSV (PCR) Not Detected (NotDetected) 03/30/23 20:19 Entero/Rhino (PCR) Not Detected (NotDetected) 03/30/23 20:19 Impressions Chest CTA 03/30/23 21:40 Exam(s): CTA CHEST EXAM: CT Angiography Chest With Intravenous Contrast CLINICAL HISTORY: Reason for exam: PE. TECHNIQUE: Axial computed tomographic angiography images of the chest with intravenous contrast. CTDI is 30.28 mGy and DLP is 728.65 mGy-cm. Automated exposure control was utilized for the study. A dose lowering technique was utilized adhering to the principles of ALARA. MIP reconstructed images were created and reviewed. COMPARISON: No relevant prior studies available. FINDINGS: Pulmonary arteries: Unremarkable. No acute pulmonary embolism. Aorta: No acute findings. No thoracic aortic aneurysm. Lungs: Known LEFT perihilar mass/malignancy, measuring 5.5 x 4.3 cm. Airspace consolidation at the LEFT lung base, concerning for aspiration pneumonia. Moderate LEFT parapneumonic effusion. Pleural space: Unremarkable. No significant effusion. No pneumothorax. Heart: Unremarkable. No cardiomegaly. No significant pericardial effusion. No evidence of RV dysfunction. Bones/joints: No acute fracture. No dislocation. Soft tissues: Unremarkable. Lymph nodes: Unremarkable. No enlarged lymph nodes. Liver: Metallic densities in the liver, correlate for underlying post treatment change. Underlying masses poorly visualized. Correlate with prior imaging. IMPRESSION: 1. No acute pulmonary embolism. 2. Known LEFT perihilar mass/malignancy, measuring 5.5 x 4.3 cm. 3. Airspace consolidation at the LEFT lung base, concerning for aspiration pneumonia. Moderate LEFT parapneumonic effusion. 4. Metallic densities in the liver, correlate for underlying post treatment change. Underlying masses poorly visualized. Correlate with prior imaging. Electronically signed by: Rikki Curran MD 03/30/23 23:46 PM Code Status & VTE Plan Code Status Full code VTE Prophylaxis Plan VTE Prophylaxis will be ordered: Yes PG Care Time/CCT Total # of Minutes Spent Total Time Spent with Patient: Total time spent is greater than 50% in coordination of care (as documented) at patient's floor/unit and/or counseling patient: Coding Level of Care Code 50781 INT INP/OBS CARE 3/75MIN Diagnoses Non-ST elevation TN (NSTEMI) I21.4 Pneumonia J18.9 Laterality: left Lung location: lower lobe of lung Pneumonia type: due to unspecified organism Mixed restrictive and obstructive lung disease J43.9; J98.4 Adenocarcinoma of lung C34.90 Hypertension I10 (2) Pneumonia Laterality: left Lung location: lower lobe of lung Pneumonia type: due to unspecified organism Qualified Code(s): J18.9 - Pneumonia, unspecified organism
[2023-03-31] MEDS: POTASSIUM CHLORIDE / WTR 10 MEQ/100 ML PLCT IV SCH ×2 (01:47→02:53)
[2023-03-31] MEDS ORDERED: NSS + 20MEQ KCL 20 MEQ/1,000 ML BAG IV SCH (03:55)
[2023-03-31] MEDS ORDERED: ONDANSETRON INJ 2 MG/ML 2 ML VIAL IV PRN (03:55)
--- NOTE | 2023-03-31 08:03 | XRay Report ---
XR chest 1V portable CLINICAL HISTORY: Dyspnea TECHNIQUE: Single frontal radiograph of the chest was obtained. Comparison: Comparison is made to chest radiograph 03/28/2023 FINDINGS: No lines and tubes are seen. The cardiomediastinal silhouette is normal. Lungs are underinflated and there are faint central airspace opacities bilaterally. Previously noted left hilar nodule is better seen by CT. No evidence of pleural effusion or pneumothorax. IMPRESSION: Faint central airspace opacities may represent atelectasis, pneumonia, and/or aspiration. Previously noted left hilar nodule is better seen by CT. ACT 112: Negative or not required by law. Electronically signed by: Kenan Fountain M.D. 03/31/2023 8:00 AM
[2023-03-31] MEDS: POTASSIUM CHLORIDE PWD 20 MEQ PACK PO SCH (08:37)
[2023-03-31] MEDS: METOPROLOL SUCC 25MG EXT REL TAB PO SCH (08:37)
[2023-03-31 09:19] LABS: Basophils # (auto) 0.02 K/uL (0.00-0.20); Basophils % (auto) 0.2 %; Eosinophils # (auto) 0.24 K/uL (0.00-0.50); Eosinophils % (auto) 2.7 %; Hematocrit (blood only) 29.6 % (42.0-52.0); Hemoglobin 10.4 g/dl (14.0-18.0); Immature Granulocytes # (auto) 0.11 K/uL (0.01-0.20); Immature Granulocytes % (auto) 1.3 %; Lymphocytes # (auto) 0.99 K/uL (1.20-3.40); Lymphocytes % (auto) 11.3 %; Mean Corpuscular Hemoglobin 29.1 pg (25.0-34.0); Mean Corpuscular Hgb Conc 35.1 g/dL (32.0-36.0); Mean Corpuscular Volume 82.7 fL (80.0-100.0); Mean Platelet Volume 11.4 fL (9.4-12.4); Monocytes # (auto) 0.51 K/uL (0.11-0.59); Monocytes % (auto) 5.8 %; Neutrophils # (auto) 6.87 K/uL (1.40-6.50); Neutrophils % (auto) 78.7 %; Platelet Count 58 K/uL (130-400); RDW Coefficient of Variation 14.2 % (11.5-14.5); RDW Standard Deviation 42.3 fL (36.4-46.3); Red Blood Count 3.58 M/uL (4.70-6.10); White Blood Count 8.74 K/ul (4.8-10.8)
[2023-03-31 09:32] LABS: Albumin Globulin Ratio 1.3 (0.9-2); Albumin Level 3.3 gm/dl (3.4-5.0); BUN Creatinine Ratio 9.1 (10-20); Bilirubin,Total 1.1 mg/dl (0.2-1.0); Creatinine Clr Calc Pharmacy 148.8 ml/min; Est GFR (African American) 140.2 ml/min; Est GFR (Non-African American) 120.9 ml/min; Globulin 2.5 gm/dl (2.5-4.0); Magnesium 1.7 mg/dl (1.7-2.4); Potassium 3.6 mmol/L (3.5-5.1); Total Protein 5.8 gm/dl (6.0-8.3)
[2023-03-31 09:49] LABS: INR 1.4 (0.9-1.1); Prothrombin Time 14.7 Seconds (9.0-12.0)
--- NOTE | 2023-03-31 14:01 | Cardiology Consultation ---
Date of Consultation March 31, 2023 Assessment & Plan (1) Non-ST elevation TN (NSTEMI): Echocardiogram does not demonstrate evidence of regional wall motion abnormality to suggest that this represents an acute coronary syndrome. EKG also not suggestive of acute TN. Suspect this is a type II non-ST elevation TN from global demand ischemia. Conservative medical approach is warranted. Continue to trend troponins and should he have recurrence of chest pain we need an EKG at that point. I am awaiting complete review of the echo as it was ongoing while I was at the bedside. (2) Tachycardia: Sinus tachycardia as an appropriate physiologic response to his acute and chronic medical problems. We will continue to monitor. I agree with use of Toprol-XL for myocardial protective effect. No large pulmonary embolus was noted on the CTA but of course a small pulmonary embolism cannot be excluded. With his very elevated D-dimer and since he has known DVT but stopped his Eliquis I would still be concerned about pulmonary embolism. Agree with reintroduce Eliquis and follow platelet count. (3) Hypertension: Blood pressure is adequately controlled at this point. Continue current medical regimen. (4) Murmur, cardiac: Based on my initial review of the echocardiogram performed in the room the patient has mitral regurgitation. I will review additional imaging to see if there is any other valvular abnormalities. This would contribute somewhat to his pleural effusion. Use of Lasix to gently diurese is reasonable. Plan I will follow. No plan for cardiac catheterization at this time but should he decompensate clinically then we may need to consider. He would be at high risk of complication given his low platelet count. 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 He admitted to recent chest discomfort and was tachycardic. Troponin was checked and found to be elevated. Patient has a complicated medical history. 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 Multiple sites of lymphatic dissemination. 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 He has undergone different chemotherapy regimens. He initially has some regression of his disease but more recently noted to have progression. About 2 weeks ago he was seen at [facility] to enroll in a clinical trial. They performed MRI of his brain and according to him he had evidence of prior CVA. Before that, he had severe left leg swelling and pain and was found to have DVT. He was started on Eliquis at that time and had resolution of his symptoms. Unfortunately he had to stop the Eliquis because of drops in his platelet count. He had an echocardiogram performed in September 2021 demonstrated low normal EF of 50 to 55% with a large pleural effusion. No significant valvular abnormalities and no segmental wall motion abnormalities. On his current admission he is noted to have continued thrombocytopenia with platelet count of 58,000. His D-dimer is also noted to be significantly elevated at 35,200 and troponin has been trending down currently at 1917. Patient denies any ongoing chest pain. His shortness of breath is improved. He has no syncope, near syncope, orthopnea, PND, racing heartbeat, palpitations, or edema. No pain in his lower extremities. Regarding his recent chest pain he is unable to describe an exact location in his chest. It was somewhat generalized chest discomfort/ache. Not sharp and not pressure. Allergies Allergy/AdvReac Type Severity Reaction Status Date / Time milk AdvReac Intermediate Gastrointestinal Verified 11/05/22 11:58 Upset Home Medications Medication Instructions Recorded Confirmed Type amlodipine 10 mg tablet 10 mg PO DAILY 09/21/21 03/31/23 History oxycodone 5 mg capsule 5 mg PO Q6H PRN Pain 10/09/21 03/31/23 History Incentive Spirometer #1 ea 10/16/21 11/05/22 Rx apixaban 5 mg tablet (Eliquis) mg 03/31/23 History fentanyl 12 mcg/hr transdermal mcg transdermal Q72H 03/31/23 History patch pantoprazole 40 mg tablet,delayed 40 mg PO 1XD 03/31/23 03/31/23 History release Patient History Medical History Abnormal CT of the chest Adenocarcinoma of lung Cavitary lesion of lung Hypertension Hypokalemia LAD (lymphadenopathy), mediastinal No chronic diseases present Pleural effusion on left Surgical History History of surgery No significant past surgical history For undescended testes Family History Father Cancer from Lung Cancer at 64 y/o Mother No problems noted. Daughter No problems noted. 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 Sclera are anicteric. ENMT: Oral mucosa is pink and dry Neck: No JVD or bruits Respiratory: Left basilar dullness, diffuse crackles. No wheezing or rhonchi. Fair air movement. Cardiovascular: Regular rhythm with a tachycardic rate. Grade 2 out of 6 systolic murmur. S4 gallop. Trace edema left greater than right. Musculoskeletal: no cyanosis or clubbing, extremities motor strength 5/5 Neurologic: Cognition is intact. Speech is fluent. No focal deficits. No tremor. Psychiatric: A+Ox3, euthymic affect Results & Data Vital Signs (Past 12 Hours) Vital Signs Pulse Pulse Resp BP BP Pulse Ox Pulse Ox 03/31/23 12:11 118 H 16 97 03/31/23 10:45 116 H 16 131/93 96 03/31/23 07:58 111 H 16 124/93 99 03/31/23 06:30 109 H 20 121/95 99 03/31/23 06:00 103 H 18 121/97 100 03/31/23 05:30 103 H 19 124/93 99 03/31/23 05:00 106 H 18 121/96 99 03/31/23 04:30 104 H 18 128/98 98 03/31/23 04:00 102 H 18 126/98 98 03/31/23 03:30 103 H 17 127/93 98 03/31/23 04:40 108 H 16 98 03/31/23 04:25 109 H 18 03/31/23 04:24 98 03/31/23 04:06 113 H 03/31/23 03:00 108 H 18 130/96 98 03/31/23 02:30 111 H 17 123/95 98 03/31/23 02:00 105 H 21 131/100 100 03/31/23 02:00 03/31/23 02:18 109 H 131/100 O2 Del Method O2 Del Method O2 Flow Rate 03/31/23 12:11 Room Air 03/31/23 10:45 Nasal Cannula 2 03/31/23 07:58 Nasal Cannula 2 03/31/23 06:30 Nasal Cannula 2 03/31/23 06:00 Nasal Cannula 2 03/31/23 05:30 Nasal Cannula 2 03/31/23 05:00 Nasal Cannula 2 03/31/23 04:30 Nasal Cannula 2 03/31/23 04:00 Nasal Cannula 2 03/31/23 03:30 Nasal Cannula 2 03/31/23 04:40 Room Air 03/31/23 04:25 Room Air 03/31/23 04:24 Room Air 03/31/23 04:06 03/31/23 03:00 Room Air 03/31/23 02:30 Room Air 03/31/23 02:00 03/31/23 02:00 Room Air 03/31/23 02:18 PG Care Time/CCT Total # of Minutes Spent Total Time Spent with Patient: Total time spent is greater than 50% in coordination of care (as documented) at patient's floor/unit and/or counseling patient: Coding Level of Care Code 35866 IN/OBS CONSULT LVL 4,60M Diagnoses Non-ST elevation TN (NSTEMI) I21.4 Tachycardia R00.0 Hypertension I10 Murmur, cardiac R01.1
--- NOTE | 2023-03-31 14:44 | Electrocardiogram Report ---
Test Reason : Blood Pressure : / mmHG Vent. Rate : 122 BPM Atrial Rate : 122 BPM P-R Int : 126 ms QRS Dur : 092 ms QT Int : 344 ms P-R-T Axes : 030 067 -12 degrees QTc Int : 490 ms Sinus tachycardia T wave abnormality, consider inferior ischemia Abnormal ECG When compared with ECG of 07-NOV-2021 09:12, T wave inversion now evident in Inferior leads Confirmed by Adolfo Perla ([id number]) on 03/31/2023 2:44:05 PM Referred By: REFERRED SELF Confirmed By:Julio C Perla
--- NOTE | 2023-03-31 14:47 | Electrocardiogram Report ---
Test Reason : Blood Pressure : / mmHG Vent. Rate : 110 BPM Atrial Rate : 110 BPM P-R Int : 148 ms QRS Dur : 092 ms QT Int : 366 ms P-R-T Axes : 066 087 040 degrees QTc Int : 495 ms Sinus tachycardia Otherwise normal ECG When compared with ECG of 30-MAR-2023 19:37, (unconfirmed) Nonspecific T wave abnormality has replaced inverted T waves in Inferior leads Confirmed by Adolfo Perla ([id number]) on 03/31/2023 2:47:25 PM Referred By: REFERRED SELF Confirmed By:Julio C Perla
--- NOTE | 2023-03-31 15:15 | Ultrasound Report ---
US venous doppler LE BI CLINICAL HISTORY: Elevated D dimer TECHNIQUE: Bilateral lower extremity real-time compression venous ultrasound with Color Doppler imagi ng. Utilizing real-time ultrasonic imaging multiple real time high-resolution ultrasonic images with compression and noncompression maneuvers of the deep venous system in addition to color doppler imagi ng were performed from the common femoral vein through the proximal calf veins. COMPARISON: Comparison is made to Doppler ultrasound 11/12/2022 FINDINGS/IMPRESSION: There is a nonocclusive thrombus in the common femoral vein on the left, likely chronic although not seen on prior exam. Occlusive thrombus in the left peroneal vein is seen which may be acute versus ch ronic, similar to prior exam. No right DVT is seen. No superficial venous thrombosis is identified. ACT 112: Negative or not required by law. Electronically signed by: Kenan Fountain M.D. 03/31/2023 3:14 PM
--- NOTE | 2023-03-31 16:43 | Hospitalist Progress Note ---
Date of Service March 31, 2023 Assessment & Plan (1) Elevated troponin: (2) Pneumonia: (3) Elevated d-dimer: (4) Thrombocytopenia: (5) Hypertension: (6) Adenocarcinoma of lung: Plan 42 yo male PMHx L lung adenocarcinoma with spinal mets, HTN, mixed restrictive/obstructive lung disease admitted for shortness of breath. Found to have L pneumonia and elevated troponin. #Elevated Troponin Suspect demand ischemia Downtrending Continue to monitor Increase fluid resuscitation Will consider increasing beta blockade if tachycardia persists #Pneumonia Left-lower lobe infiltrate noted on CT On Zosyn F/u blood cultures Continues to be tachycardic, BP has improved Continue volume resuscitation #Elevated D dimer Noted on admission History of L LE DVT CTA and LE Dopplers negative Will restart apixaban 5mg BID #Thrombocytopenia 58,000 in setting of elevated D dimer Will restart anticoagulation If any procedure is necessary will be high risk Plan for platelet transfusion below 20,000 or higher if necessary #Hypertension Chronic, was low at admission Hold antihypertensives at this time Monitor BPs, restart if pressure greater than 140/90 #Adenocarcinoma of Lung With mets to spine Pt brought his chemo medication Tagrisso with him from home Suspect the location of his primary lesion contributed to development of L lower lobe pneumonia Dispo: Tele Diet: Regular DVT PPx: Eliquis Admission and Anticipated Discharge Date Admission Date: March 31, 2023 Supervising Physician Co-Signing Physician Notes ATTESTATION I also saw the patient and confirmed sánchez portions of the history and exam. I agree with the impression and plan in the resident documentation, and as summarized below. Upon our exam earlier this afternoon, the patient was still in the emergency department awaiting an inpatient bed. Overall, he states he feels a little bit better; less dyspnea. EXAM 131/93, 118, 16, 37.3, 97% on room air Alert and oriented. No distress appreciated Heart is tachycardic, but regular rhythm Lungs coarse left lower lobe, otherwise clear. Abdominal nondistended, nontender Extremities without edema or calf tenderness DATA Labs Hemoglobin 10.4, platelet count 58 D-dimer 35,200 Sodium 135, potassium 3.6, BUN 6, creatinine 0.66 AST 137, ALT 90, Bayard phosphatase 150 Troponin peaked at 1917.[address] of the chest was negative for pulmonary embolism; redemonstration of left perihilar mass/malignancy. Also noted airspace consolidation at the left lung base with a moderate left parapneumonic effusion. Micro Blood cultures from 03/30/2023, late p.m., are pending. IMPRESSION & PLAN Pneumonia in the setting of adenocarcinoma of the lung Suspect obstructive Continue Zosyn Await blood cultures Elevated D-dimer History of DVT He had been off of his systemic anticoagulation secondary to decreasing platelet count. Certainly high risk for VTE given active cancer. Resume anticoagulation Monitor platelet count Doppler lower extremities to exclude thrombosis Thrombocytopenia Monitor (see above) Additional per resident documentation Subjective 42 yo male PMHx L lung adenocarcinoma with spinal mets, HTN, mixed restrictive/obstructive lung disease admitted for shortness of breath. Found to have L pneumonia and elevated troponin. This AM: patient feeling much better today. Still feels weak with mild SOB. No longer requiring supplemental oxygen. Denies PAULINO, CP, N/V/D, LE swelling Review of Systems Review of Systems: reviewed, per HPI Physical Exam Physical Exam: General: patient resting comfortably, NAD, non-toxic in appearance, AA&O x 4, answers questions appropriately and follows commands. Skin: warm, dry, intact HEENT: NC/AT, anicteric sclera, conjunctiva without injection, moist mucus membranes, trachea midline, no thyromegaly, no JVD Heart: +S1/S2, regular, no m/r/g Lungs: equal air entry bilaterally, no rales/rhonchi/wheezes Abd: +BS, soft, NT/ND, no masses/organomegaly/ascites Ext: warm, no clubbing/cyanosis or edema Neuro: nonfocal, patient AA&O x 4, speech intact, no facial droop, moving all extremities on command. Results & Data Results & Data Vital Signs (Past 12 Hours) Vital Signs Pulse Pulse Resp BP BP Pulse Ox O2 Del Method 03/31/23 12:11 118 H 16 97 Room Air 03/31/23 10:45 116 H 16 131/93 96 Nasal Cannula 03/31/23 07:58 111 H 16 124/93 99 Nasal Cannula 03/31/23 06:30 109 H 20 121/95 99 Nasal Cannula 03/31/23 06:00 103 H 18 121/97 100 Nasal Cannula 03/31/23 05:30 103 H 19 124/93 99 Nasal Cannula 03/31/23 05:00 106 H 18 121/96 99 Nasal Cannula O2 Flow Rate 03/31/23 12:11 03/31/23 10:45 2 03/31/23 07:58 2 03/31/23 06:30 2 03/31/23 06:00 2 03/31/23 05:30 2 03/31/23 05:00 2 Laboratory Results 03/31/23 03/31/23 03/31/23 Range/Units 09:04 09:04 09:04 WBC 8.74 (4.8-10.8) K/ul RBC 3.58 L (4.70-6.10) M/uL Hgb 10.4 L (14.0-18.0) g/dl Hct 29.6 L (42.0-52.0) % MCV 82.7 (80.0-100.0) fL MCH 29.1 (25.0-34.0) pg MCHC 35.1 (32.0-36.0) g/dL RDW Std Deviation 42.3 (36.4-46.3) fL RDW Coeff of [place] 14.2 (11.5-14.5) % Plt Count 58 L (130-400) K/uL MPV 11.4 (9.4-12.4) fL Immature Gran % (Auto) 1.3 % Neut % (Auto) 78.7 % Lymph % (Auto) 11.3 % Boyle % (Auto) 5.8 % Eos % (Auto) 2.7 % Baso % (Auto) 0.2 % Neut # (Auto) 6.87 H (1.40-6.50) K/uL Lymph # (Auto) 0.99 L (1.20-3.40) K/uL Boyle # (Auto) 0.51 (0.11-0.59) K/uL Eos # (Auto) 0.24 (0.00-0.50) K/uL Baso # (Auto) 0.02 (0.00-0.20) K/uL Immature Gran # (Auto) 0.11 (0.01-0.20) K/uL PT 14.7 H (9.0-12.0) Seconds INR 1.4 H (0.9-1.1) APTT (21.0-31.0) Seconds PTT Ratio D-Dimer (0-500) ug/L FEU VBG pH (7.36-7.41) VBG pCO2 (38-50) mmHg VBG pO2 mmHg VBG HCO3 mmol/L VBG O2 Saturation % VBG Base Excess mEq/L Sodium 135 L (136-145) mmol/L Potassium 3.6 (3.5-5.1) mmol/L Chloride 102 (98-107) mmol/L Carbon Dioxide 27 (21-32) mmol/L Anion Gap 6 (3-11) BUN 6 (6-23) mg/dl Creatinine 0.66 (0.6-1.4) mg/dl Est Cr Clr Drug Dosing 148.8 ml/min Est GFR ( Amer) 140.2 ml/min Est GFR (Non-Af Amer) 120.9 ml/min BUN/Creatinine Ratio 9.1 L (10-20) Glucose 104 H (70-99(Fasting)) mg/dl Lactate (0.4-2.0) mmol/L Calcium 7.0 L (8.6-10.3) mg/dl Magnesium 1.7 (1.7-2.4) mg/dl Total Bilirubin 1.1 H (0.2-1.0) mg/dl AST 137 H (13-39) U/L ALT 90 H (7-52) U/L Alkaline Phosphatase 150 H (34-104) U/L Troponin I High Sens (0-20) pg/ml C-Reactive Protein 7.00 H (0-0.5) mg/dl Total Protein 5.8 L (6.0-8.3) gm/dl Albumin 3.3 L (3.4-5.0) gm/dl Globulin 2.5 (2.5-4.0) gm/dl Albumin/Globulin Ratio 1.3 (0.9-2) Procalcitonin (0-0.5) ng/ml Urine Color Urine Appearance (Clear) Urine pH (4.5-7.5) Ur Specific [place] (1.000-1.030) Urine Protein (Negative) Urine Glucose (UA) (Negative) Urine Ketones (Negative) Urine Blood (Negative) Urine Nitrite (Negative) Urine Bilirubin (Negative) Urine Urobilinogen (Negative) Ur Leukocyte Esterase (Negative) Urine WBC (Auto) (0-5) /hpf Urine RBC (Auto) (0-4) /hpf U Hyaline Cast (Auto) (0-5) /lpf U Epithel Cells (Auto) (0-5) /lpf Urine Bacteria (Auto) (Negative) Adenovirus (PCR) (NotDetected) B. pertussis DNA (PCR) (NotDetected) B.parapertussis DNA PCR (NotDetected) C. pneumoniae DNA (PCR) (NotDetected) Coronavirus OC43 (PCR) (NotDetected) Coronavirus HKU1 (PCR) (NotDetected) Coronavirus 229E (PCR) (NotDetected) SARS-CoV-2 (PCR) (NotDetected) Coronavirus NL63 (PCR) (NotDetected) Human Metapneumovir PCR (NotDetected) Influenza Type A (PCR) (NotDetected) Influenza Type B (PCR) (NotDetected) M. pneumoniae (PCR) (NotDetected) Parainfluenza 1 (PCR) (NotDetected) Parainfluenza 2 (PCR) (NotDetected) Parainfluenza 3 (PCR) (NotDetected) Parainfluenza 4 (PCR) (NotDetected) RSV (PCR) (NotDetected) Entero/Rhino (PCR) (NotDetected) 03/31/23 03/30/23 03/30/23 Range/Units 04:17 22:44 21:59 WBC (4.8-10.8) K/ul RBC (4.70-6.10) M/uL Hgb (14.0-18.0) g/dl Hct (42.0-52.0) % MCV (80.0-100.0) fL MCH (25.0-34.0) pg MCHC (32.0-36.0) g/dL RDW Std Deviation (36.4-46.3) fL RDW Coeff of [place] (11.5-14.5) % Plt Count (130-400) K/uL MPV (9.4-12.4) fL Immature Gran % (Auto) % Neut % (Auto) % Lymph % (Auto) % Boyle % (Auto) % Eos % (Auto) % Baso % (Auto) % Neut # (Auto) (1.40-6.50) K/uL Lymph # (Auto) (1.20-3.40) K/uL Boyle # (Auto) (0.11-0.59) K/uL Eos # (Auto) (0.00-0.50) K/uL Baso # (Auto) (0.00-0.20) K/uL Immature Gran # (Auto) (0.01-0.20) K/uL PT (9.0-12.0) Seconds INR (0.9-1.1) APTT (21.0-31.0) Seconds PTT Ratio D-Dimer (0-500) ug/L FEU VBG pH (7.36-7.41) VBG pCO2 (38-50) mmHg VBG pO2 mmHg VBG HCO3 mmol/L VBG O2 Saturation % VBG Base Excess mEq/L Sodium (136-145) mmol/L Potassium (3.5-5.1) mmol/L Chloride (98-107) mmol/L Carbon Dioxide (21-32) mmol/L Anion Gap (3-11) BUN (6-23) mg/dl Creatinine (0.6-1.4) mg/dl Est Cr Clr Drug Dosing ml/min Est GFR ( Amer) ml/min Est GFR (Non-Af Amer) ml/min BUN/Creatinine Ratio (10-20) Glucose (70-99(Fasting)) mg/dl Lactate (0.4-2.0) mmol/L Calcium (8.6-10.3) mg/dl Magnesium (1.7-2.4) mg/dl Total Bilirubin (0.2-1.0) mg/dl AST (13-39) U/L ALT (7-52) U/L Alkaline Phosphatase (34-104) U/L Troponin I High Sens 1917.3 H* 2206.1 H* (0-20) pg/ml C-Reactive Protein (0-0.5) mg/dl Total Protein (6.0-8.3) gm/dl Albumin (3.4-5.0) gm/dl Globulin (2.5-4.0) gm/dl Albumin/Globulin Ratio (0.9-2) Procalcitonin (0-0.5) ng/ml Urine Color Yellow Urine Appearance Clear (Clear) Urine pH 7.5 (4.5-7.5) Ur Specific [place] 1.010 (1.000-1.030) Urine Protein 1+ H (Negative) Urine Glucose (UA) Negative (Negative) Urine Ketones 2+ H (Negative) Urine Blood Negative (Negative) Urine Nitrite Negative (Negative) Urine Bilirubin Negative (Negative) Urine Urobilinogen Negative (Negative) Ur Leukocyte Esterase Negative (Negative) Urine WBC (Auto) 1-5 (0-5) /hpf Urine RBC (Auto) 0-4 (0-4) /hpf U Hyaline Cast (Auto) 1-5 (0-5) /lpf U Epithel Cells (Auto) 20-30 H (0-5) /lpf Urine Bacteria (Auto) Negative (Negative) Adenovirus (PCR) (NotDetected) B. pertussis DNA (PCR) (NotDetected) B.parapertussis DNA PCR (NotDetected) C. pneumoniae DNA (PCR) (NotDetected) Coronavirus OC43 (PCR) (NotDetected) Coronavirus HKU1 (PCR) (NotDetected) Coronavirus 229E (PCR) (NotDetected) SARS-CoV-2 (PCR) (NotDetected) Coronavirus NL63 (PCR) (NotDetected) Human Metapneumovir PCR (NotDetected) Influenza Type A (PCR) (NotDetected) Influenza Type B (PCR) (NotDetected) M. pneumoniae (PCR) (NotDetected) Parainfluenza 1 (PCR) (NotDetected) Parainfluenza 2 (PCR) (NotDetected) Parainfluenza 3 (PCR) (NotDetected) Parainfluenza 4 (PCR) (NotDetected) RSV (PCR) (NotDetected) Entero/Rhino (PCR) (NotDetected) 03/30/23 03/30/23 03/30/23 Range/Units 20:40 20:36 20:36 WBC (4.8-10.8) K/ul RBC (4.70-6.10) M/uL Hgb (14.0-18.0) g/dl Hct (42.0-52.0) % MCV (80.0-100.0) fL MCH (25.0-34.0) pg MCHC (32.0-36.0) g/dL RDW Std Deviation (36.4-46.3) fL RDW Coeff of [place] (11.5-14.5) % Plt Count (130-400) K/uL MPV (9.4-12.4) fL Immature Gran % (Auto) % Neut % (Auto) % Lymph % (Auto) % Boyle % (Auto) % Eos % (Auto) % Baso % (Auto) % Neut # (Auto) (1.40-6.50) K/uL Lymph # (Auto) (1.20-3.40) K/uL Boyle # (Auto) (0.11-0.59) K/uL Eos # (Auto) (0.00-0.50) K/uL Baso # (Auto) (0.00-0.20) K/uL Immature Gran # (Auto) (0.01-0.20) K/uL PT (9.0-12.0) Seconds INR (0.9-1.1) APTT (21.0-31.0) Seconds PTT Ratio D-Dimer (0-500) ug/L FEU VBG pH 7.45 H (7.36-7.41) VBG pCO2 41 (38-50) mmHg VBG pO2 27 mmHg VBG HCO3 29 mmol/L VBG O2 Saturation < 60.0 % VBG Base Excess 4.1 mEq/L Sodium (136-145) mmol/L Potassium (3.5-5.1) mmol/L Chloride (98-107) mmol/L Carbon Dioxide (21-32) mmol/L Anion Gap (3-11) BUN (6-23) mg/dl Creatinine (0.6-1.4) mg/dl Est Cr Clr Drug Dosing ml/min Est GFR ( Amer) ml/min Est GFR (Non-Af Amer) ml/min BUN/Creatinine Ratio (10-20) Glucose (70-99(Fasting)) mg/dl Lactate 1.5 (0.4-2.0) mmol/L Calcium (8.6-10.3) mg/dl Magnesium (1.7-2.4) mg/dl Total Bilirubin (0.2-1.0) mg/dl AST (13-39) U/L ALT (7-52) U/L Alkaline Phosphatase (34-104) U/L Troponin I High Sens (0-20) pg/ml C-Reactive Protein (0-0.5) mg/dl Total Protein (6.0-8.3) gm/dl Albumin (3.4-5.0) gm/dl Globulin (2.5-4.0) gm/dl Albumin/Globulin Ratio (0.9-2) Procalcitonin 0.21 (0-0.5) ng/ml Urine Color Urine Appearance (Clear) Urine pH (4.5-7.5) Ur Specific [place] (1.000-1.030) Urine Protein (Negative) Urine Glucose (UA) (Negative) Urine Ketones (Negative) Urine Blood (Negative) Urine Nitrite (Negative) Urine Bilirubin (Negative) Urine Urobilinogen (Negative) Ur Leukocyte Esterase (Negative) Urine WBC (Auto) (0-5) /hpf Urine RBC (Auto) (0-4) /hpf U Hyaline Cast (Auto) (0-5) /lpf U Epithel Cells (Auto) (0-5) /lpf Urine Bacteria (Auto) (Negative) Adenovirus (PCR) (NotDetected) B. pertussis DNA (PCR) (NotDetected) B.parapertussis DNA PCR (NotDetected) C. pneumoniae DNA (PCR) (NotDetected) Coronavirus OC43 (PCR) (NotDetected) Coronavirus HKU1 (PCR) (NotDetected) Coronavirus 229E (PCR) (NotDetected) SARS-CoV-2 (PCR) (NotDetected) Coronavirus NL63 (PCR) (NotDetected) Human Metapneumovir PCR (NotDetected) Influenza Type A (PCR) (NotDetected) Influenza Type B (PCR) (NotDetected) M. pneumoniae (PCR) (NotDetected) Parainfluenza 1 (PCR) (NotDetected) Parainfluenza 2 (PCR) (NotDetected) Parainfluenza 3 (PCR) (NotDetected) Parainfluenza 4 (PCR) (NotDetected) RSV (PCR) (NotDetected) Entero/Rhino (PCR) (NotDetected) 03/30/23 03/30/23 03/30/23 Range/Units 20:36 20:36 20:36 WBC 9.82 (4.8-10.8) K/ul RBC 3.86 L (4.70-6.10) M/uL Hgb 11.2 L (14.0-18.0) g/dl Hct 31.8 L (42.0-52.0) % MCV 82.4 (80.0-100.0) fL MCH 29.0 (25.0-34.0) pg MCHC 35.2 (32.0-36.0) g/dL RDW Std Deviation 41.1 (36.4-46.3) fL RDW Coeff of [place] 13.8 (11.5-14.5) % Plt Count 68 L (130-400) K/uL MPV 12.5 H (9.4-12.4) fL Immature Gran % (Auto) 1.5 % Neut % (Auto) 79.4 % Lymph % (Auto) 10.8 % Boyle % (Auto) 5.8 % Eos % (Auto) 2.3 % Baso % (Auto) 0.2 % Neut # (Auto) 7.79 H (1.40-6.50) K/uL Lymph # (Auto) 1.06 L (1.20-3.40) K/uL Boyle # (Auto) 0.57 (0.11-0.59) K/uL Eos # (Auto) 0.23 (0.00-0.50) K/uL Baso # (Auto) 0.02 (0.00-0.20) K/uL Immature Gran # (Auto) 0.15 (0.01-0.20) K/uL PT 14.6 H (9.0-12.0) Seconds INR 1.4 H (0.9-1.1) APTT 31.0 (21.0-31.0) Seconds PTT Ratio 1.1 D-Dimer > 54769 H* (0-500) ug/L FEU VBG pH (7.36-7.41) VBG pCO2 (38-50) mmHg VBG pO2 mmHg VBG HCO3 mmol/L VBG O2 Saturation % VBG Base Excess mEq/L Sodium 131 L (136-145) mmol/L Potassium 3.2 L (3.5-5.1) mmol/L Chloride 95 L (98-107) mmol/L Carbon Dioxide 28 (21-32) mmol/L Anion Gap 8 (3-11) BUN 8 (6-23) mg/dl Creatinine 0.76 (0.6-1.4) mg/dl Est Cr Clr Drug Dosing 129.2 ml/min Est GFR ( Amer) 132.3 ml/min Est GFR (Non-Af Amer) 114.1 ml/min BUN/Creatinine Ratio 10.5 (10-20) Glucose 115 H (70-99(Fasting)) mg/dl Lactate (0.4-2.0) mmol/L Calcium 7.9 L (8.6-10.3) mg/dl Magnesium 1.8 (1.7-2.4) mg/dl Total Bilirubin 1.2 H (0.2-1.0) mg/dl AST 102 H (13-39) U/L ALT 59 H (7-52) U/L Alkaline Phosphatase 164 H (34-104) U/L Troponin I High Sens 2345.7 H* (0-20) pg/ml C-Reactive Protein 7.26 H (0-0.5) mg/dl Total Protein 6.3 (6.0-8.3) gm/dl Albumin 3.6 (3.4-5.0) gm/dl Globulin 2.7 (2.5-4.0) gm/dl Albumin/Globulin Ratio 1.3 (0.9-2) Procalcitonin (0-0.5) ng/ml Urine Color Urine Appearance (Clear) Urine pH (4.5-7.5) Ur Specific [place] (1.000-1.030) Urine Protein (Negative) Urine Glucose (UA) (Negative) Urine Ketones (Negative) Urine Blood (Negative) Urine Nitrite (Negative) Urine Bilirubin (Negative) Urine Urobilinogen (Negative) Ur Leukocyte Esterase (Negative) Urine WBC (Auto) (0-5) /hpf Urine RBC (Auto) (0-4) /hpf U Hyaline Cast (Auto) (0-5) /lpf U Epithel Cells (Auto) (0-5) /lpf Urine Bacteria (Auto) (Negative) Adenovirus (PCR) (NotDetected) B. pertussis DNA (PCR) (NotDetected) B.parapertussis DNA PCR (NotDetected) C. pneumoniae DNA (PCR) (NotDetected) Coronavirus OC43 (PCR) (NotDetected) Coronavirus HKU1 (PCR) (NotDetected) Coronavirus 229E (PCR) (NotDetected) SARS-CoV-2 (PCR) (NotDetected) Coronavirus NL63 (PCR) (NotDetected) Human Metapneumovir PCR (NotDetected) Influenza Type A (PCR) (NotDetected) Influenza Type B (PCR) (NotDetected) M. pneumoniae (PCR) (NotDetected) Parainfluenza 1 (PCR) (NotDetected) Parainfluenza 2 (PCR) (NotDetected) Parainfluenza 3 (PCR) (NotDetected) Parainfluenza 4 (PCR) (NotDetected) RSV (PCR) (NotDetected) Entero/Rhino (PCR) (NotDetected) 03/30/23 Range/Units 20:19 WBC (4.8-10.8) K/ul RBC (4.70-6.10) M/uL Hgb (14.0-18.0) g/dl Hct (42.0-52.0) % MCV (80.0-100.0) fL MCH (25.0-34.0) pg MCHC (32.0-36.0) g/dL RDW Std Deviation (36.4-46.3) fL RDW Coeff of [place] (11.5-14.5) % Plt Count (130-400) K/uL MPV (9.4-12.4) fL Immature Gran % (Auto) % Neut % (Auto) % Lymph % (Auto) % Boyle % (Auto) % Eos % (Auto) % Baso % (Auto) % Neut # (Auto) (1.40-6.50) K/uL Lymph # (Auto) (1.20-3.40) K/uL Boyle # (Auto) (0.11-0.59) K/uL Eos # (Auto) (0.00-0.50) K/uL Baso # (Auto) (0.00-0.20) K/uL Immature Gran # (Auto) (0.01-0.20) K/uL PT (9.0-12.0) Seconds INR (0.9-1.1) APTT (21.0-31.0) Seconds PTT Ratio D-Dimer (0-500) ug/L FEU VBG pH (7.36-7.41) VBG pCO2 (38-50) mmHg VBG pO2 mmHg VBG HCO3 mmol/L VBG O2 Saturation % VBG Base Excess mEq/L Sodium (136-145) mmol/L Potassium (3.5-5.1) mmol/L Chloride (98-107) mmol/L Carbon Dioxide (21-32) mmol/L Anion Gap (3-11) BUN (6-23) mg/dl Creatinine (0.6-1.4) mg/dl Est Cr Clr Drug Dosing ml/min Est GFR ( Amer) ml/min Est GFR (Non-Af Amer) ml/min BUN/Creatinine Ratio (10-20) Glucose (70-99(Fasting)) mg/dl Lactate (0.4-2.0) mmol/L Calcium (8.6-10.3) mg/dl Magnesium (1.7-2.4) mg/dl Total Bilirubin (0.2-1.0) mg/dl AST (13-39) U/L ALT (7-52) U/L Alkaline Phosphatase (34-104) U/L Troponin I High Sens (0-20) pg/ml C-Reactive Protein (0-0.5) mg/dl Total Protein (6.0-8.3) gm/dl Albumin (3.4-5.0) gm/dl Globulin (2.5-4.0) gm/dl Albumin/Globulin Ratio (0.9-2) Procalcitonin (0-0.5) ng/ml Urine Color Urine Appearance (Clear) Urine pH (4.5-7.5) Ur Specific [place] (1.000-1.030) Urine Protein (Negative) Urine Glucose (UA) (Negative) Urine Ketones (Negative) Urine Blood (Negative) Urine Nitrite (Negative) Urine Bilirubin (Negative) Urine Urobilinogen (Negative) Ur Leukocyte Esterase (Negative) Urine WBC (Auto) (0-5) /hpf Urine RBC (Auto) (0-4) /hpf U Hyaline Cast (Auto) (0-5) /lpf U Epithel Cells (Auto) (0-5) /lpf Urine Bacteria (Auto) (Negative) Adenovirus (PCR) Not Detected (NotDetected) B. pertussis DNA (PCR) Not Detected (NotDetected) B.parapertussis DNA PCR Not Detected (NotDetected) C. pneumoniae DNA (PCR) Not Detected (NotDetected) Coronavirus OC43 (PCR) Not Detected (NotDetected) Coronavirus HKU1 (PCR) Not Detected (NotDetected) Coronavirus 229E (PCR) Not Detected (NotDetected) SARS-CoV-2 (PCR) Not Detected (NotDetected) Coronavirus NL63 (PCR) Not Detected (NotDetected) Human Metapneumovir PCR Not Detected (NotDetected) Influenza Type A (PCR) Not Detected (NotDetected) Influenza Type B (PCR) Not Detected (NotDetected) M. pneumoniae (PCR) Not Detected (NotDetected) Parainfluenza 1 (PCR) Not Detected (NotDetected) Parainfluenza 2 (PCR) Not Detected (NotDetected) Parainfluenza 3 (PCR) Not Detected (NotDetected) Parainfluenza 4 (PCR) Not Detected (NotDetected) RSV (PCR) Not Detected (NotDetected) Entero/Rhino (PCR) Not Detected (NotDetected) Resident Activity Tracking Resident Involvement: Resident Care Provided Care Provided: Adult Hospital Medicine (2) Pneumonia Laterality: left Lung location: lower lobe of lung Pneumonia type: due to unspecified organism Qualified Code(s): J18.9 - Pneumonia, unspecified organism
--- NOTE | 2023-03-31 17:41 | XCELERA ---
[id number]
[2023-03-31] MEDS: LACTATED RINGER'S 1,000 ML IV SCH ×2 (17:54→23:45)
[2023-03-31] MEDS: OSIMERTINIB MESYLATE PO SCH (21:01)
[2023-03-31] MEDS: APIXABAN 5 MG TABLET PO SCH (21:01)
[2023-04-01] MEDS: LACTATED RINGER'S 1,000 ML IV SCH ×2 (01:49→10:36)
--- NOTE | 2023-04-01 06:50 | Hospitalist Progress Note ---
Date of Service April 01, 2023 Assessment & Plan (1) Elevated troponin: (2) Pneumonia: (3) Elevated d-dimer: (4) Thrombocytopenia: (5) Hypertension: (6) Adenocarcinoma of lung: Plan 42 yo male PMHx L lung adenocarcinoma with spinal mets, HTN, mixed restrictive/obstructive lung disease admitted for shortness of breath. Found to have L pneumonia and elevated troponin. #Elevated Troponin Suspect demand ischemia Downtrending Continue to monitor Increase fluid resuscitation Will consider increasing beta blockade if tachycardia persists #Pneumonia Left-lower lobe infiltrate noted on CT On Zosyn F/u blood cultures Continues to be tachycardic, BP has improved Sputum culture Plan for thoracentesis 04/03/23 #Elevated D dimer Noted on admission History of L LE DVT CTA and LE Dopplers negative Will restart apixaban 5mg BID #Thrombocytopenia 58,000 in setting of elevated D dimer Will restart anticoagulation If any procedure is necessary will be high risk Plan for platelet transfusion below 20,000 or higher if necessary #Hypertension Chronic, was low at admission Hold antihypertensives at this time Monitor BPs, restart if pressure greater than 140/90 #Adenocarcinoma of Lung With mets to spine Pt brought his chemo medication Tagrisso with him from home Suspect the location of his primary lesion contributed to development of L lower lobe pneumonia Dispo: Tele Diet: Regular DVT PPx: Eliquis Admission and Anticipated Discharge Date Admission Date: March 31, 2023 Supervising Physician Co-Signing Physician Notes ATTESTATION I also saw the patient and confirmed sánchez portions of the history and exam. I agree with the impression and plan in the resident documentation, and as summarized below. Patient states that he is feeling little bit better overall; less shortness of breath compared to yesterday. EXAM 128/88, 117, 20, 36.6, 90% room air Alert and oriented. No distress appreciated Heart is tachycardic, but regular rhythm Lungs coarse left lower lobe, otherwise clear. Extremities without edema or calf tenderness DATA Labs Hemoglobin 9.4, platelet count [address] of the chest was negative for pulmonary embolism; redemonstration of left perihilar mass/malignancy. Also noted airspace consolidation at the left lung base with a moderate left parapneumonic effusion. Chest x-ray today shows no change in small left pleural effusion; persistent left basilar airspace opacity with additional past airspace opacities within the lungs. Micro Blood cultures from 03/30/2023 demonstrate no growth at 24 hours IMPRESSION & PLAN Pneumonia in the setting of adenocarcinoma of the lung Question parapneumonic effusion Continue Zosyn Consult pulmonary medicine Await blood cultures Myocardial infarction type II secondary to demand ischemia Troponins have peaked; echo reassuring Cardiology consult appreciated Elevated D-dimer History of DVT Hold apixaban; switch to heparin drip (no bolus) in anticipation of thoracentesis on 04/03 Thrombocytopenia Improved; monitor daily Tachycardia Review of outpatient chart demonstrates baseline heart rate [id number], so his present sinus tachycardia represents his baseline Low-dose beta-katelynn added upon admission; would not advance further at this point, but certainly could consider once out of acute infection Additional per resident documentation Subjective 42 yo male PMHx L lung adenocarcinoma with spinal mets, HTN, mixed restrictive/obstructive lung disease admitted for shortness of breath. Found to have L pneumonia and elevated troponin. This AM: patient feeling much better today. Still feels weak with mild SOB. No longer requiring supplemental oxygen. Denies PAULINO, CP, N/V/D, LE swelling Review of Systems Review of Systems: reviewed, per HPI Physical Exam Physical Exam: General: patient resting comfortably, NAD, non-toxic in appearance, AA&O x 4, answers questions appropriately and follows commands. Skin: warm, dry, intact HEENT: NC/AT, anicteric sclera, conjunctiva without injection, moist mucus membranes, trachea midline, no thyromegaly, no JVD Heart: +S1/S2, regular, no m/r/g Lungs: Decreased breath sounds + mild rales L side Abd: +BS, soft, NT/ND, no masses/organomegaly/ascites Ext: warm, no clubbing/cyanosis or edema Neuro: nonfocal, patient AA&O x 4, speech intact, no facial droop, moving all extremities on command. Results & Data Results & Data Vital Signs (Past 12 Hours) Vital Signs Temp Pulse Resp BP Pulse Ox Pulse Ox O2 Del Method 04/01/23 04:00 98 04/01/23 03:12 37.6 C H 114 H 18 130/93 98 Room Air 03/31/23 22:48 37.4 C 119 H 22 137/91 97 Room Air 03/31/23 20:00 Room Air 03/31/23 19:30 37.3 C 118 H 20 130/89 97 Room Air O2 Del Method 04/01/23 04:00 Room Air 04/01/23 03:12 03/31/23 22:48 03/31/23 20:00 03/31/23 19:30 Resident Activity Tracking Resident Involvement: Resident Care Provided Care Provided: Adult Hospital Medicine (2) Pneumonia Laterality: left Lung location: lower lobe of lung Pneumonia type: due to unspecified organism Qualified Code(s): J18.9 - Pneumonia, unspecified organism
[2023-04-01 07:37] LABS: Basophils # (auto) 0.02 K/uL (0.00-0.20); Basophils % (auto) 0.2 %; Eosinophils # (auto) 0.16 K/uL (0.00-0.50); Eosinophils % (auto) 1.6 %; Hematocrit (blood only) 26.4 % (42.0-52.0); Hemoglobin 9.4 g/dl (14.0-18.0); Immature Granulocytes # (auto) 0.19 K/uL (0.01-0.20); Immature Granulocytes % (auto) 1.9 %; Lymphocytes # (auto) 0.98 K/uL (1.20-3.40); Mean Corpuscular Hemoglobin 28.8 pg (25.0-34.0); Mean Corpuscular Hgb Conc 35.6 g/dL (32.0-36.0); Monocytes # (auto) 0.59 K/uL (0.11-0.59); Neutrophils # (auto) 7.85 K/uL (1.40-6.50); Neutrophils % (auto) 80.3 %; Platelet Count 62 K/uL (130-400); RDW Coefficient of Variation 14.4 % (11.5-14.5); RDW Standard Deviation 42.3 fL (36.4-46.3); Red Blood Count 3.26 M/uL (4.70-6.10); White Blood Count 9.79 K/ul (4.8-10.8)
[2023-04-01 07:57] LABS: BUN Creatinine Ratio 9.5 (10-20); C Reactive Protein 8.02 mg/dl (0-0.5); Creatinine Clr Calc Pharmacy 155.9 ml/min; Est GFR (African American) 142.9 ml/min; Est GFR (Non-African American) 123.3 ml/min; Potassium 2.9 mmol/L (3.5-5.1)
[2023-04-01 08:03] LABS: Albumin Level 3.1 gm/dl (3.4-5.0); Bilirubin Direct 0.2 mg/dl (0-0.2); Bilirubin,Total 0.9 mg/dl (0.2-1.0); Phosphorus 1.3 mg/dl (2.5-4.9); Total Protein 5.5 gm/dl (6.0-8.3)
[2023-04-01] MEDS ORDERED: POTASSIUM PHOS 3 MMOL/1 ML INFUSION IV STA (08:04)
[2023-04-01 08:05] LABS: Partial Thromboplastin Ratio 1.2; Partial Thromboplastin Time 32.9 Seconds (21.0-31.0)
[2023-04-01] MEDS ORDERED: POTASSIUM CHLORIDE CRTAB 20 MEQ TABCR PO STA (08:07)
[2023-04-01] MEDS ORDERED: POTASSIUM PHOSPHATE 21 MMOL in SODIUM CHLORIDE 0.9% 500 ML IV ONE (08:15)
[2023-04-01] MEDS ORDERED: PIPER/TAZO 4.5g in D5W MINI-B 100 ML IV ONE (08:15)
[2023-04-01 08:25] LABS: Thyroid Stimulating Hormone 1.992 uIu/ml (0.300-4.500)
--- NOTE | 2023-04-01 08:40 | XRay Report ---
XR chest 1V portable CLINICAL HISTORY: Parapneumonic effusion. Lung cancer. COMPARISON STUDY: Chest radiograph and chest CT March 30, 2023. FINDINGS: There is no pneumothorax. Small left pleural effusion is similar to prior exam. Left basila r airspace opacity persists. Additional patchy bilateral airspace opacities are similar to prior ches t radiograph and chest CT. There is no evidence for pulmonary edema. Cardiomediastinal silhouette is stable. IMPRESSION: 1. No change in a small left pleural effusion. No pneumothorax. 2. Persistent left basilar airspace opacity and additional patchy airspace opacities within the lungs . The findings favor pneumonia. ACT 112: Negative or not required by law. Electronically signed by: Lester Courtney M.D. 04/01/2023 8:38 AM
[2023-04-01] MEDS ORDERED: NON-FORMULARY PATIENT'S OWN MED SCH (09:00)
[2023-04-01] MEDS: METOPROLOL SUCC 25MG EXT REL TAB PO SCH (09:20)
[2023-04-01] MEDS: APIXABAN 5 MG TABLET PO SCH (10:35)
--- NOTE | 2023-04-01 10:49 | Electrocardiogram Report ---
Test Reason : Blood Pressure : / mmHG Vent. Rate : 114 BPM Atrial Rate : 114 BPM P-R Int : 154 ms QRS Dur : 102 ms QT Int : 380 ms P-R-T Axes : 053 098 -23 degrees QTc Int : 523 ms Sinus tachycardia Rightward axis T wave abnormality, consider inferior ischemia T wave abnormality, consider anterior ischemia Prolonged QT Abnormal ECG When compared with ECG of 31-MAR-2023 02:05, Inverted T waves have replaced nonspecific T wave abnormality in Inferior leads Confirmed by Adolfo Perla ([id number]) on 04/01/2023 10:48:45 AM Referred By: REFERRED SELF Confirmed By:Julio C Perla
[2023-04-01] MEDS: POTASSIUM CHLORIDE PWD 20 MEQ PACK PO SCH (11:30)
[2023-04-01] MEDS: PIPERACILLIN/TAZOBACTAM 4.5 GM in DEXTROSE 5% MINI-B 100 ML IV SCH ×2 (12:25→20:19)
--- NOTE | 2023-04-01 13:39 | Pulmonary Consultation ---
Date of Consultation April 01, 2023 Assessment & Plan (1) Thrombocytopenia: (2) Pneumonia: Laterality: left Lung location: lower lobe of lung Pneumonia type: due to unspecified organism Qualified Code(s): J18.9 - Pneumonia, unspecified organism (3) Mixed restrictive and obstructive lung disease: (4) Pleural effusion on left: (5) Abnormal CT of the chest: (6) Adenocarcinoma of lung: Plan CT chest 03/30/2023 personally reviewed: Patchy opacity groundglass right upper lobe as well as the lingula Consolidative process in the left lower lobe with left-sided pleural effusion Left perihilar mass 5.5 x 4.3 cm Significant mediastinal lymphadenopathy, Station 4R lymphadenopathy seems to be worse 2D echo 03/31/2023: EF 60-65%, RV grossly normal in size, severe left atrium enlargement, moderate MR --Left lower lobe pneumonia Patient does have left hilar mass from before Is that playing a role in left lower lobe consolidative process, difficult to rule out although patient had left hilar mass since August 2022 Respiratory bio fire negative for everything Procalcitonin 0.21 CRP 8.02 -- Left-sided pleural effusion Small to moderate on bedside ultrasound -- Mixed obstructive restrictive lung disease Restriction is most likely coming from the pleural involvement as well as a pleural effusion Obstruction from underlying lung cancer and/or possible asthma Continue with incentive spirometry PFT 09/27/2021: Mixed obstructive restrictive lung disease with mild obstruction and mild to moderate restriction, insignificant bronchodilator response, normal DLCO FVC 3.29 L 67%, FEV1 2.08 L 52%, FEV1/FVC 63%, RV 63%, TLC 62%, RV/TLC 101%, DLCO 75% -- Stage IV adenocarcinoma of the lung S/p EBUS 09/21/2021 PET/CT 10/03/2021 showed extensive uptake with nodules bilateral lungs PET/CT 12/2021 showed decrease in size of Left lung mass and resolving of pulmonary nodules on right but New lesions in the liver Was started on chemotherapy carboplatin/pemetrexed and completed 6 cycles on 08/26/2022 On maintenance pemetrexed/Tagrisso (Osimertinib) 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 Patient is on apixaban, last dose was morning of 04/01/2023. Patient needs to be off apixaban for at least 48 hours before doing thoracentesis. We will try to do thoracentesis afternoon of 04/03/2023 Hold apixaban. Can transition to heparin drip if need be Continue with antibiotics. Overall prognosis of the patient is very poor. There has been progression of the disease with mets to the liver as well as the spine. Palliative care should be also consulted to get goals of care Case was discussed with Dr. Burrell Please note the above document was generated using voice recognition software. It may contain grammatical, syntax or spelling errors.Any formal questions or concerns about the content, text or information contained within the body of this dictation should be directly addressed to the provider for clarification. History of Present Illness Attending Physician: Teddy Alatorre DO History of Present Illness 42-year-old male presented to the hospital with complaints of shortness of breath Past medical history: Hypertension, adenocarcinoma of the lung diagnosed 08/2021 Patient was last seen by me in the office 03/13/2022 At the time of examination patient was resting comfortably on the bed. He was saturating 96% on room air. Stated that he is feeling better since he came to the hospital. Complaints of generalized weakness He traveled to [place] approximately 6 weeks ago. He started to feel subjective fever and chills after coming back. No dysuria. Did complain of mild diarrhea which was watery. Nonbloody Does complain of cough with clear phlegm. Denies any hemoptysis No nausea vomiting No headache, no blurry vision Last time he traveled to [place] was 5-6 years ago He denies any personal history of tuberculosis. No known TB contacts Social history: Lifetime non-smoker. Family history of lung cancer in the father was a non-smoker No personal or family history of asthma. Allergies Allergy/AdvReac Type Severity Reaction Status Date / Time milk AdvReac Intermediate Gastrointestinal Verified 11/05/22 11:58 Upset Home Medications Medication Instructions Recorded Confirmed Type amlodipine 10 mg tablet 10 mg PO DAILY 09/21/21 03/31/23 History oxycodone 5 mg capsule 5 mg PO Q6H PRN Pain 10/09/21 03/31/23 History Incentive Spirometer #1 ea 10/16/21 11/05/22 Rx apixaban 5 mg tablet (Eliquis) mg 03/31/23 History fentanyl 12 mcg/hr transdermal mcg transdermal Q72H 03/31/23 History patch pantoprazole 40 mg tablet,delayed 40 mg PO 1XD 03/31/23 03/31/23 History release Patient History Medical History Abnormal CT of the chest Adenocarcinoma of lung Cavitary lesion of lung Hypertension Hypokalemia LAD (lymphadenopathy), mediastinal No chronic diseases present Pleural effusion on left Surgical History History of surgery No significant past surgical history For undescended testes Family History Father Cancer from Lung Cancer at 64 y/o Mother No problems noted. Daughter No problems noted. 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; Feels Safe at Home: Yes Diet: regular caffeine: No during the past year weight has: remained stable Assistive Devices: Cane and Glasses Review of Systems Review of Systems: All systems reviewed & are unremarkable except as noted in HPI & below Physical Exam Physical Exam: Constitutional: No acute distress HEENT: EOMI, PERRLA Respiratory system: Decreased air entry on the left side, no wheeze, rhonchi, mild crackles bilaterally CVS: S1-S2 positive, no murmurs or gallops, tachycardia Abdomen: Soft, nontender, nondistended, positive bowel sounds x4 Extremities: +2 pulses bilaterally radialis/ dorsalis pedis, no cyanosis, no edema Neuro: Awake alert oriented x3 Psych: Normal mood and affect G/U: No Moran Skin: no rashes, warm and dry Lymphatic: no cervical or axillary lymphadenopathy Results & Data Results & Data Vital Signs (Past 12 Hours) Vital Signs Temp Pulse Pulse Resp BP Pulse Ox Pulse Ox 04/01/23 11:11 36.6 C 109 H 20 128/88 98 04/01/23 09:30 115 H 04/01/23 08:07 37.5 C 119 H 21 135/89 97 04/01/23 07:52 04/01/23 04:00 98 04/01/23 03:12 37.6 C H 114 H 18 130/93 98 O2 Del Method O2 Del Method 04/01/23 11:11 Room Air 04/01/23 09:30 04/01/23 08:07 Room Air 04/01/23 07:52 Room Air 04/01/23 04:00 Room Air 04/01/23 03:12 Room Air Laboratory Results 04/01/23 06:41 04/01/23 06:41 PG Care Time/CCT Total # of Minutes Spent Total Time Spent with Patient: Total time spent is greater than 50% in coordination of care (as documented) at patient's floor/unit and/or counseling patient: Coding Level of Care Code 62671 INT INP/OBS CARE 75MIN Diagnoses Thrombocytopenia D69.6 Pneumonia J18.9 Laterality: left Lung location: lower lobe of lung Pneumonia type: due to unspecified organism Mixed restrictive and obstructive lung disease J43.9; J98.4 Pleural effusion on left J90 Abnormal CT of the chest R93.89 Adenocarcinoma of lung C34.90
[2023-04-01] MEDS ORDERED: HEPARIN SODIUM/DEXTROSE 25,000 UNITS/500 ML BAG IV SCH ×2 (15:00→15:30)
[2023-04-01] MEDS ORDERED: Heparin IV Adult Wt-Based Standard *NO* Bolus Protocol IV SCH (15:04)
[2023-04-01] MEDS: OSIMERTINIB MESYLATE PO SCH (20:22)
[2023-04-01] MEDS: ACETAMINOPHEN 325 MG TAB PO PRN (21:02)
[2023-04-01] MEDS: HEPARIN SODIUM/DEXTROSE 25,000 UNITS/500 ML BAG IV SCH (22:00)
[2023-04-02 04:12] LABS: Basophils # (auto) 0.03 K/uL (0.00-0.20); Basophils % (auto) 0.3 %; Eosinophils # (auto) 0.24 K/uL (0.00-0.50); Eosinophils % (auto) 2.4 %; Hematocrit (blood only) 27.8 % (42.0-52.0); Hemoglobin 9.9 g/dl (14.0-18.0); Immature Granulocytes # (auto) 0.18 K/uL (0.01-0.20); Immature Granulocytes % (auto) 1.8 %; Lymphocytes # (auto) 0.82 K/uL (1.20-3.40); Lymphocytes % (auto) 8.3 %; Mean Corpuscular Hemoglobin 29.2 pg (25.0-34.0); Mean Corpuscular Hgb Conc 35.6 g/dL (32.0-36.0); Mean Platelet Volume 11.5 fL (9.4-12.4); Monocytes # (auto) 0.63 K/uL (0.11-0.59); Monocytes % (auto) 6.4 %; Neutrophils # (auto) 7.98 K/uL (1.40-6.50); Neutrophils % (auto) 80.8 %; Nucleated RBC # (auto) 0.02 K/uL (0.00-0.12); Nucleated RBC % (auto) 0.2 %; Platelet Count 59 K/uL (130-400); RDW Coefficient of Variation 14.4 % (11.5-14.5); RDW Standard Deviation 42.3 fL (36.4-46.3); Red Blood Count 3.39 M/uL (4.70-6.10); White Blood Count 9.88 K/ul (4.8-10.8)
[2023-04-02] MEDS: PIPERACILLIN/TAZOBACTAM 4.5 GM in DEXTROSE 5% MINI-B 100 ML IV SCH ×3 (04:13→20:06)
[2023-04-02 04:18] LABS: Albumin Level 3.2 gm/dl (3.4-5.0); Calcium 7.5 mg/dl (8.6-10.3); Creatinine Clr Calc Pharmacy 130.9 ml/min; Est GFR (Non-African American) 114.7 ml/min; Magnesium 1.6 mg/dl (1.7-2.4); Phosphorus 2.2 mg/dl (2.5-4.9); Potassium 2.9 mmol/L (3.5-5.1)
[2023-04-02 05:00] LABS: Partial Thromboplastin Ratio 2.5
[2023-04-02 05:32] LABS: Partial Thromboplastin Time 70.2 Seconds (21.0-31.0)
[2023-04-02] MEDS ORDERED: POTASSIUM PHOS 3 MMOL/1 ML INFUSION IV STA (06:46)
--- NOTE | 2023-04-02 06:46 | Hospitalist Progress Note ---
Date of Service April 02, 2023 Assessment & Plan (1) Elevated troponin: (2) Pneumonia: (3) Elevated d-dimer: (4) Thrombocytopenia: (5) Hypertension: (6) Adenocarcinoma of lung: Plan 42 yo male PMHx L lung adenocarcinoma with spinal mets, HTN, mixed restrictive/obstructive lung disease admitted for shortness of breath. Found to have L pneumonia and elevated troponin. #Elevated Troponin Suspect demand ischemia Repeat EKG today with resolution of ST changes Continue to monitor Will consider increasing beta blockade if tachycardia persists #Pneumonia Left-lower lobe infiltrate noted on CT On Zosyn F/u blood cultures Continues to be tachycardic, BP has improved Sputum culture Plan for thoracentesis 04/03/23 - heparin held at midnight #Elevated D dimer Noted on admission History of L LE DVT CTA neg LE Doppler with non occlusive thromboses Hold apixaban until thoracentesis Heparin drip until tonight, will hold Will restart apixaban 5mg BID after thoracentesis #Thrombocytopenia 58,000 in setting of elevated D dimer Will restart anticoagulation If any procedure is necessary will be high risk Plan for platelet transfusion below 20,000 or higher if necessary #Hypertension Chronic, was low at admission Hold antihypertensives at this time Monitor BPs, restart if pressure greater than 140/90 #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 I agree with the impression and plan in the resident documentation, and as summarized below. Patient states that he is feeling little bit better overall; less shortness of breath compared to yesterday. EXAM 120/88, 100, 18, 37, 90% on nasal cannula 2 L/min Alert and oriented. No distress appreciated Heart is again tachycardic, but regular rhythm Some coarseness left lower lobe, otherwise clear. Extremities without edema or calf tenderness DATA Labs Hemoglobin 9.9, platelet count 59 Potassium 2.9 Micro Blood cultures from 03/30/2023 demonstrate no growth at 24 hours IMPRESSION & PLAN Pneumonia in the setting of adenocarcinoma of the lung Question parapneumonic effusion Continue Zosyn Appreciate pulmonary consult Thoracentesis likely tomorrow Myocardial infarction type II secondary to demand ischemia Troponins have peaked; echo reassuring Cardiology consult appreciated Elevated D-dimer History of DVT Remains on heparin drip in anticipation of thoracentesis tomorrow Thrombocytopenia Stable; monitor daily Tachycardia Review of outpatient chart demonstrates baseline heart rate [id number], so his present sinus tachycardia represents his baseline Low-dose beta-katelynn added upon admission; would not advance further at this point, but certainly could consider once out of acute infection Additional per resident documentation Subjective 42 yo male PMHx L lung adenocarcinoma with spinal mets, HTN, mixed restrictive/obstructive lung disease admitted for shortness of breath. Found to have L pneumonia and elevated troponin. This AM: patient feeling much better today. Still feels weak with mild SOB. Wea ring oxygen today for comfort. Denies PAULINO, CP, N/V/D, LE swelling Review of Systems Review of Systems: reviewed, per HPI Physical Exam Physical Exam: General: patient resting comfortably, NAD, non-toxic in appearance, AA&O x 4, answers questions appropriately and follows commands. Skin: warm, dry, intact HEENT: NC/AT, anicteric sclera, conjunctiva without injection, moist mucus membranes, trachea midline, no thyromegaly, no JVD Heart: +S1/S2, regular, no m/r/g Lungs: Decreased breath sounds + mild rales L side Abd: +BS, soft, NT/ND, no masses/organomegaly/ascites Ext: warm, no clubbing/cyanosis or edema Neuro: nonfocal, patient AA&O x 4, speech intact, no facial droop, moving all extremities on command. Results & Data Results & Data Vital Signs (Past 12 Hours) Vital Signs Temp Pulse Pulse Resp BP BP Pulse Ox 04/02/23 04:27 37.2 C 114 H 20 132/93 99 04/01/23 22:10 117 H 04/01/23 20:45 04/02/23 00:13 37.5 C 04/01/23 22:17 38.3 C H 118 H 20 129/88 95 04/01/23 19:08 37.6 C H 117 H 18 126/84 98 O2 Del Method 04/02/23 04:27 Room Air 04/01/23 22:10 04/01/23 20:45 Room Air 04/02/23 00:13 04/01/23 22:17 Room Air 04/01/23 19:08 Room Air Resident Activity Tracking Resident Involvement: Resident Care Provided Care Provided: Adult Hospital Medicine (2) Pneumonia Laterality: left Lung location: lower lobe of lung Pneumonia type: due to unspecified organism Qualified Code(s): J18.9 - Pneumonia, unspecified organism
[2023-04-02] MEDS: POTASSIUM CHLORIDE / WTR 10 MEQ/100 ML PLCT IV SCH ×4 (07:54→11:52)
[2023-04-02] MEDS: MAGNESIUM SULFATE / D5W 1 GM/100 ML BAG IV SCH ×2 (07:55→09:31)
[2023-04-02] MEDS: POTASSIUM CHLORIDE PWD 20 MEQ PACK PO SCH (07:56)
[2023-04-02] MEDS: METOPROLOL SUCC 25MG EXT REL TAB PO SCH (07:57)
[2023-04-02] MEDS: ACETAMINOPHEN 325 MG TAB PO PRN (08:01)
--- NOTE | 2023-04-02 08:40 | Pulmonology Progress Note ---
Date of Service April 02, 2023 Assessment & Plan (1) Thrombocytopenia: (2) Pneumonia: Laterality: left Lung location: lower lobe of lung Pneumonia type: due to unspecified organism Qualified Code(s): J18.9 - Pneumonia, unspecified organism (3) Mixed restrictive and obstructive lung disease: (4) Pleural effusion on left: (5) Abnormal CT of the chest: (6) Adenocarcinoma of lung: Plan CT chest 03/30/2023 personally reviewed: Patchy opacity groundglass right upper lobe as well as the lingula Consolidative process in the left lower lobe with left-sided pleural effusion Left perihilar mass 5.5 x 4.3 cm Significant mediastinal lymphadenopathy, Station 4R lymphadenopathy seems to be worse 2D echo 03/31/2023: EF 60-65%, RV grossly normal in size, severe left atrium enlargement, moderate MR --Left lower lobe pneumonia Patient does have left hilar mass from before Is that playing a role in left lower lobe consolidative process, difficult to rule out although patient had left hilar mass since August 2022 Respiratory bio fire negative for everything Nasal MRSA negative Procalcitonin 0.21 CRP 8.02 -- Left-sided pleural effusion Small to moderate on bedside ultrasound -- Mixed obstructive restrictive lung disease Restriction is most likely coming from the pleural involvement as well as a pleural effusion Obstruction from underlying lung cancer and/or possible asthma Continue with incentive spirometry PFT 09/27/2021: Mixed obstructive restrictive lung disease with mild obstruction and mild to moderate restriction, insignificant bronchodilator response, normal DLCO FVC 3.29 L 67%, FEV1 2.08 L 52%, FEV1/FVC 63%, RV 63%, TLC 62%, RV/TLC 101%, DLCO 75% -- Stage IV adenocarcinoma of the lung S/p EBUS 09/21/2021 PET/CT 10/03/2021 showed extensive uptake with nodules bilateral lungs PET/CT 12/2021 showed decrease in size of Left lung mass and resolving of pulmonary nodules on right but New lesions in the liver Was started on chemotherapy carboplatin/pemetrexed and completed 6 cycles on 08/26/2022 On maintenance pemetrexed/Tagrisso (Osimertinib) 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 Patient needs to be off apixaban for at least 48 hours before doing thoracentesis. We will try to do thoracentesis afternoon of 04/03/2023 Continue with heparin drip. We will hold that around 6 AM tomorrow for thorac entesis around 12 PM Continue with antibiotics. Please note the above document was generated using voice recognition software. It may contain grammatical, syntax or spelling errors.Any formal questions or concerns about the content, text or information contained within the body of thi s dictation should be directly addressed to the provider for clarification. Admission and Anticipated Discharge Date Admission Date: March 31, 2023 Subjective Patient seen and examined at bedside. No acute distress, no adverse events overnight Patient was saturating 98-99% on 2 L nasal cannula He still complaining of diarrhea having approximately 3-4 bowel movements a day watery, nonbloody. He said he is feeling the same when it comes to his breathing Denies any pain when he takes a deep breath in No headache, no nausea, no vomiting Review of Systems Review of Systems: All systems reviewed & are unremarkable except as noted in Subjective Physical Exam Physical Exam: Constitutional: No acute distress HEENT: EOMI, PERRLA Respiratory system: Decreased air entry on the left side, no wheeze, rhonchi, mild crackles bilaterally CVS: S1-S2 positive, no murmurs or gallops, tachycardia Abdomen: Soft, nontender, nondistended, positive bowel sounds x4 Extremities: +2 pulses bilaterally radialis/ dorsalis pedis, no cyanosis, no edema Neuro: Awake alert oriented x3 Psych: Normal mood and affect G/U: No Moran Skin: no rashes, warm and dry Lymphatic: no cervical or axillary lymphadenopathy Results & Data Results & Data Vital Signs (Past 12 Hours) Vital Signs Temp Pulse Pulse Resp BP Pulse Ox O2 Del Method 04/02/23 07:10 37.6 C H 116 H 18 125/87 100 Nasal Cannula 04/02/23 04:27 37.2 C 114 H 20 132/93 99 Room Air 04/01/23 22:10 117 H 04/01/23 20:45 Room Air 04/02/23 00:13 37.5 C 04/01/23 22:17 38.3 C H 118 H 20 129/88 95 Room Air O2 Flow Rate 04/02/23 07:10 2 04/02/23 04:27 04/01/23 22:10 04/01/23 20:45 04/02/23 00:13 04/01/23 22:17 Laboratory Results 04/02/23 03:54 04/02/23 03:54 PG Care Time/CCT Total # of Minutes Spent Total Time Spent with Patient: Total time spent is greater than 50% in coordination of care (as documented) at patient's floor/unit and/or counseling patient: Coding Level of Care Code 46545 SUB INP/OBS CARE 3/50MIN Diagnoses Thrombocytopenia D69.6 Pneumonia J18.9 Laterality: left Lung location: lower lobe of lung Pneumonia type: due to unspecified organism Mixed restrictive and obstructive lung disease J43.9; J98.4 Pleural effusion on left J90 Abnormal CT of the chest R93.89 Adenocarcinoma of lung C34.90
[2023-04-02] MEDS ORDERED: POTASSIUM PHOSPHATE 15 MMOL in SODIUM CHLORIDE 0.9% 250 ML IV ONE (11:15)
--- NOTE | 2023-04-02 12:38 | Electrocardiogram Report ---
Test Reason : Blood Pressure : / mmHG Vent. Rate : 111 BPM Atrial Rate : 111 BPM P-R Int : 128 ms QRS Dur : 096 ms QT Int : 360 ms P-R-T Axes : 040 079 -05 degrees QTc Int : 489 ms Sinus tachycardia Abnormal ECG When compared with ECG of 01-APR-2023 05:56, ST no longer depressed in Anterior leads Confirmed by Adolfo Perla ([id number]) on 04/02/2023 12:38:06 PM Referred By: REFERRED SELF Confirmed By:Julio C Perla
[2023-04-02 13:22] LABS: Partial Thromboplastin Ratio 2.5
[2023-04-02 13:51] LABS: Partial Thromboplastin Time 70.5 Seconds (21.0-31.0)
[2023-04-02] MEDS ORDERED: POTASSIUM CHLORIDE CRTAB 20 MEQ TABCR PO ONE (15:00)
[2023-04-02] MEDS ORDERED: HEPARIN SODIUM/DEXTROSE 25,000 UNITS/500 ML BAG IV SCH (17:45)
[2023-04-02] MEDS: Heparin IV Adult Wt-Based Standard *NO* Bolus Protocol IV SCH ×4 (17:47→20:04)
[2023-04-02] MEDS: OSIMERTINIB MESYLATE PO SCH (20:06)
[2023-04-02 20:18] LABS: Partial Thromboplastin Ratio 1.1; Partial Thromboplastin Time 30.6 Seconds (21.0-31.0)
[2023-04-03] MEDS: ACETAMINOPHEN 325 MG TAB PO PRN ×2 (00:43→16:02)
[2023-04-03 02:11] LABS: Basophils # (auto) 0.02 K/uL (0.00-0.20); Basophils % (auto) 0.2 %; Eosinophils # (auto) 0.29 K/uL (0.00-0.50); Eosinophils % (auto) 2.7 %; Hematocrit (blood only) 26.3 % (42.0-52.0); Hemoglobin 9.1 g/dl (14.0-18.0); Immature Granulocytes # (auto) 0.14 K/uL (0.01-0.20); Immature Granulocytes % (auto) 1.3 %; Lymphocytes # (auto) 1.05 K/uL (1.20-3.40); Lymphocytes % (auto) 9.7 %; Mean Corpuscular Hemoglobin 28.9 pg (25.0-34.0); Mean Corpuscular Hgb Conc 34.6 g/dL (32.0-36.0); Mean Corpuscular Volume 83.5 fL (80.0-100.0); Mean Platelet Volume 12.4 fL (9.4-12.4); Monocytes # (auto) 0.58 K/uL (0.11-0.59); Monocytes % (auto) 5.4 %; Neutrophils # (auto) 8.74 K/uL (1.40-6.50); Neutrophils % (auto) 80.7 %; Platelet Count 62 K/uL (130-400); RDW Standard Deviation 44.7 fL (36.4-46.3); Red Blood Count 3.15 M/uL (4.70-6.10); White Blood Count 10.82 K/ul (4.8-10.8)
[2023-04-03 02:16] LABS: Albumin Level 3.1 gm/dl (3.4-5.0); Bilirubin,Total 0.8 mg/dl (0.2-1.0); Calcium 7.4 mg/dl (8.6-10.3); Potassium 3.3 mmol/L (3.5-5.1)
[2023-04-03 02:22] LABS: Albumin Globulin Ratio 1.2 (0.9-2); BUN Creatinine Ratio 12.7 (10-20); Creatinine Clr Calc Pharmacy 138.3 ml/min; Est GFR (Non-African American) 117.4 ml/min; Globulin 2.6 gm/dl (2.5-4.0); Total Protein 5.7 gm/dl (6.0-8.3)
[2023-04-03 03:13] LABS: Partial Thromboplastin Ratio 2.2
[2023-04-03 03:19] LABS: Partial Thromboplastin Time 60.9 Seconds (21.0-31.0)
[2023-04-03] MEDS: PIPERACILLIN/TAZOBACTAM 4.5 GM in DEXTROSE 5% MINI-B 100 ML IV SCH (04:38)
--- NOTE | 2023-04-03 06:59 | Hospitalist Progress Note ---
Date of Service April 03, 2023 Assessment & Plan (1) Elevated troponin: (2) Pneumonia: (3) Elevated d-dimer: (4) Thrombocytopenia: (5) Hypertension: (6) Adenocarcinoma of lung: Plan 42 yo male PMHx L lung adenocarcinoma with spinal mets, HTN, mixed restrictive/obstructive lung disease admitted for shortness of breath. Found to have L pneumonia and elevated troponin. #Elevated Troponin Suspect demand ischemia Repeat EKG today with resolution of ST changes Continue to monitor Will consider increasing beta blockade if tachycardia persists #Pneumonia Left-lower lobe infiltrate noted on CT On Zosyn F/u blood cultures Continues to be tachycardic, BP has improved Sputum culture Plan for thoracentesis 04/03/23 - heparin held at 6am #Elevated D dimer Noted on admission History of L LE DVT CTA neg LE Doppler with non occlusive thromboses Hold apixaban until thoracentesis Heparin drip until tonight, will hold Will restart apixaban 5mg BID after thoracentesis #Thrombocytopenia 58,000 in setting of elevated D dimer Will restart anticoagulation If any procedure is necessary will be high risk Plan for platelet transfusion below 20,000 or higher if necessary #Hypertension Chronic, was low at admission Hold antihypertensives at this time Monitor BPs, restart if pressure greater than 140/90 #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 I agree with the impression and plan in the resident documentation, and as summ arized below. Patient is seen about 2 hours post thoracentesis. Complains of feeling weak/tired. Has been using the bedside commode; the walk to the bathroom seems to tire him. Breathing is little bit easier than upon admission. EXAM 116/84, 115, 17, 36 4, 95% on nasal cannula 1 L/min Alert and oriented. No distress appreciated Heart is again tachycardic, but regular rhythm Course left lower lobe, otherwise clear. Extremities without edema or calf tenderness DATA Labs BBC 10.2, hemoglobin 9.1, platelet 62 Sodium 133, potassium 3.3 Micro Blood cultures from 03/30/2023 demonstrate no growth at 48 hours Pleural fluid cultures are pending IMPRESSION & PLAN Pneumonia in the setting of adenocarcinoma of the lung Question parapneumonic effusion, status postthoracentesis today Continue Zosyn Appreciate pulmonary consult Palliative consultation has been placed Myocardial infarction type II secondary to demand ischemia Troponins have peaked; echo reassuring Cardiology consult appreciated Elevated D-dimer History of DVT Resume Eliquis at discretion of pulmonology; likely tomorrow Thrombocytopenia Stable; monitor daily Tachycardia Review of outpatient chart demonstrates baseline heart rate [id number], so his present sinus tachycardia represents his baseline Low-dose beta-katelynn added upon admission; would not advance further at this point, but certainly could consider once out of acute infection Additional per resident documentation Subjective 42 yo male PMHx L lung adenocarcinoma with spinal mets, HTN, mixed restrictive/obstructive lung disease admitted for shortness of breath. Found to have L pneumonia and elevated troponin. This AM: pt felling well. Still feels weak with mild SOB. Wearing oxygen today for comfort. Denies PAULINO, CP, N/V, LE swelling Review of Systems Review of Systems: reviewed, per HPI Physical Exam Physical Exam: General: patient resting comfortably, NAD, non-toxic in appearance, AA&O x 4, answers questions appropriately and follows commands. Skin: warm, dry, intact HEENT: NC/AT, anicteric sclera, conjunctiva without injection, moist mucus membranes, trachea midline, no thyromegaly, no JVD Heart: +S1/S2, regular, no m/r/g Lungs: Decreased breath sounds + mild rales L side Abd: +BS, soft, NT/ND, no masses/organomegaly/ascites Ext: warm, no clubbing/cyanosis or edema Neuro: nonfocal, patient AA&O x 4, speech intact, no facial droop, moving all extremities on command. Results & Data Results & Data Vital Signs (Past 12 Hours) Vital Signs Temp Pulse Pulse Resp BP BP Pulse Ox 04/03/23 04:51 36.5 C 89 20 131/90 100 04/02/23 20:20 04/02/23 23:05 37.7 C H 109 H 18 122/87 100 04/02/23 22:02 110 H 04/02/23 19:31 36.7 C 113 H 18 123/87 100 O2 Del Method O2 Flow Rate 04/03/23 04:51 Nasal Cannula 2.5 04/02/23 20:20 Nasal Cannula 2 04/02/23 23:05 Nasal Cannula 2.5 04/02/23 22:02 04/02/23 19:31 Nasal Cannula 2.5 Resident Activity Tracking Resident Involvement: Resident Care Provided Care Provided: Adult Hospital Medicine (2) Pneumonia Laterality: left Lung location: lower lobe of lung Pneumonia type: due to unspecified organism Qualified Code(s): J18.9 - Pneumonia, unspecified organism
[2023-04-03 07:34] LABS: Magnesium 1.7 mg/dl (1.7-2.4)
[2023-04-03 07:40] LABS: Phosphorus 2.6 mg/dl (2.5-4.9)
--- NOTE | 2023-04-03 08:00 | Pulmonology Progress Note ---
Date of Service April 03, 2023 Assessment & Plan (1) Thrombocytopenia: (2) Pneumonia: Laterality: left Lung location: lower lobe of lung Pneumonia type: due to unspecified organism Qualified Code(s): J18.9 - Pneumonia, unspecified organism (3) Mixed restrictive and obstructive lung disease: (4) Pleural effusion on left: (5) Abnormal CT of the chest: (6) Adenocarcinoma of lung: Plan CT chest 03/30/2023 personally reviewed: Patchy opacity groundglass right upper lobe as well as the lingula Consolidative process in the left lower lobe with left-sided pleural effusion Left perihilar mass 5.5 x 4.3 cm Significant mediastinal lymphadenopathy, Station 4R lymphadenopathy seems to be worse 2D echo 03/31/2023: EF 60-65%, RV grossly normal in size, severe left atrium enlargement, moderate MR --Left lower lobe pneumonia Patient does have left hilar mass from before Is that playing a role in left lower lobe consolidative process, difficult to rule out although patient had left hilar mass since August 2022 Respiratory bio fire negative for everything Nasal MRSA negative Procalcitonin 0.21 CRP 8.02 -- Left-sided pleural effusion Small to moderate on bedside ultrasound -- Mixed obstructive restrictive lung disease Restriction is most likely coming from the pleural involvement as well as a pleural effusion Obstruction from underlying lung cancer and/or possible asthma Continue with incentive spirometry PFT 09/27/2021: Mixed obstructive restrictive lung disease with mild obstruction and mild to moderate restriction, insignificant bronchodilator response, normal DLCO FVC 3.29 L 67%, FEV1 2.08 L 52%, FEV1/FVC 63%, RV 63%, TLC 62%, RV/TLC 101%, DLCO 75% -- Stage IV adenocarcinoma of the lung S/p EBUS 09/21/2021 PET/CT 10/03/2021 showed extensive uptake with nodules bilateral lungs PET/CT 12/2021 showed decrease in size of Left lung mass and resolving of pulmonary nodules on right but New lesions in the liver Was started on chemotherapy carboplatin/pemetrexed and completed 6 cycles on 08/26/2022 On maintenance pemetrexed/Tagrisso (Osimertinib) 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 Patient needs to be off apixaban for at least 48 hours before doing thoracentesis. We will try to do thoracentesis afternoon of 04/03/2023 Continue to hold heparin. For thoracentesis around 1 PM today Consent was signed, witnessed and put in the chart Risk and benefit of the procedure explained the patient in depth Continue with antibiotics. Case was discussed with RN at bedside Please note the above document was generated using voice recognition software. It may contain grammatical, syntax or spelling errors.Any formal questions or concerns about the content, text or information contained within the body of this dictation should be directly addressed to the provider for clarification. Admission and Anticipated Discharge Date Admission Date: March 31, 2023 Subjective Patient seen and examined at bedside. No acute distress, no adverse events overnight He was saturating 100% on 3 L nasal cannula. Overall he says he is feeling better compared to when he came to the hospital Still having diarrhea, watery. Nonbloody, 4 bowel movements yesterday. None today Denies any chest pain Review of Systems Review of Systems: All systems reviewed & are unremarkable except as noted in Subjective Physical Exam Physical Exam: Constitutional: No acute distress HEENT: EOMI, PERRLA Respiratory system: Decreased air entry on the left side, no wheeze, rhonchi, mild crackles bilaterally CVS: S1-S2 positive, no murmurs or gallops, tachycardia Abdomen: Soft, nontender, nondistended, positive bowel sounds x4 Extremities: +2 pulses bilaterally radialis/ dorsalis pedis, no cyanosis, no edema Neuro: Awake alert oriented x3 Psych: Normal mood and affect G/U: No Moran Skin: no rashes, warm and dry Lymphatic: no cervical or axillary lymphadenopathy Results & Data Results & Data Vital Signs (Past 12 Hours) Vital Signs Temp Pulse Pulse Resp BP BP Pulse Ox 04/03/23 07:52 37.3 C 107 H 16 121/89 99 04/03/23 04:51 36.5 C 89 20 131/90 100 04/02/23 20:20 04/02/23 23:05 37.7 C H 109 H 18 122/87 100 04/02/23 22:02 110 H O2 Del Method O2 Flow Rate 04/03/23 07:52 Nasal Cannula 2 04/03/23 04:51 Nasal Cannula 2.5 04/02/23 20:20 Nasal Cannula 2 04/02/23 23:05 Nasal Cannula 2.5 04/02/23 22:02 Laboratory Results 04/03/23 01:37 04/03/23 01:37 PG Care Time/CCT Total # of Minutes Spent Total Time Spent with Patient: Total time spent is greater than 50% in coordination of care (as documented) at patient's floor/unit and/or counseling patient: Coding Level of Care Code 71305 SUB INP/OBS CARE 235MIN Diagnoses Thrombocytopenia D69.6 Pneumonia J18.9 Laterality: left Lung location: lower lobe of lung Pneumonia type: due to unspecified organism Mixed restrictive and obstructive lung disease J43.9; J98.4 Pleural effusion on left J90 Abnormal CT of the chest R93.89 Adenocarcinoma of lung C34.90
[2023-04-03] MEDS: POTASSIUM CHLORIDE PWD 20 MEQ PACK PO SCH (08:19)
[2023-04-03] MEDS: METOPROLOL SUCC 25MG EXT REL TAB PO SCH (08:19)
--- NOTE | 2023-04-03 11:38 | Procedure Note ---
Procedure Note Date of Service April 03, 2023 Note Procedure: Diagnostic therapeutic ultrasound-guided catheter thoracentesis Upper Cutter: Dr. Shaun Vasquez Indication: Left pleural effusion Consent: Signed by patient and verified with timeout prior to procedure Anesthesia: 1% lidocaine without epinephrine local. Procedure: Consent was verified and timeout performed. Appropriate imaging studies were reviewed prior to the procedure. Patient was placed in a seated position and limited thoracic ultrasound was performed of the left chest. See separate imaging. Appropriate site above the diaphragm for thoracentesis was selected. The skin was prepped and draped in normal sterile fashion. Lidocaine was used for local analgesia. Fluid was aspirated via the finder needle. A small skin jair was made with the scalpel and the catheter over the needle apparatus was advanced over the rib into the pleural space. Using the syringe one-way valve system, a total of 400 mL's of serosanguineous fluid was removed. The catheter was removed and observed to be intact. A sterile dressing was applied. Post procedure chest x-ray was ordered. Fluid was sent for labs, culture and cytology. Complications: None Blood loss: Less than 2 cc Coding CPT Codes Pulmonary/Thoracic - Pulmonary and Thoracic: 56894 Thoracentesis w imaging ([id number]) [facility] [place] Procedure Codes (Charges) Pulmonary/Thoracic Procedure 1: Pulmonary and Thoracic: 56305 Thoracentesis w imaging
--- NOTE | 2023-04-03 12:12 | XRay Report ---
SINGLE VIEW CHEST CLINICAL HISTORY: Status post thoracentesis FINDINGS: An AP, portable, upright chest radiograph is compared to study dated 04/01/2023 and correlat ed with chest CT dated 03/30/2023. The examination is degraded by portable technique and patient rotat ion. The heart appears mildly enlarged. There is a small residual left pleural effusion and left bas ilar consolidation. The pleural effusion has decreased in size from previous. No pneumothorax is seen . The bony thorax is grossly intact. Vascular coils project over the liver. IMPRESSION: 1. No pneumothorax is identified post procedure. 2. Small residual left pleural effusion with left basilar consolidation. This is decreased in size fr om previous. ACT 112: Negative or not required by law. Electronically signed by: Buzz Duenas M.D. 04/03/2023 12:10 PM
[2023-04-03 12:43] LABS: Albumin Level 3.5 gm/dl (3.4-5.0); Total Protein 6.5 gm/dl (6.0-8.3)
[2023-04-03 12:47] LABS: Total Protein Pleural Fluid 3.2 gm/dl
[2023-04-03 12:54] LABS: Appearance Pleural Fluid Cloudy; Color Pleural Fluid Amber; RBC Pleural Fluid Auto 34000 /uL; Source Pleural Fluid Left Lung; WBC Pleural Fluid Auto 1166 /uL
[2023-04-03 13:41] LABS: Basophils, Fluid 1 %; Eosinophils, Fluid 1 %; Lymphocytes, Fluid 45 %; Mono,Macrophage,Mesothelial 37 %; Neutrophils, Fluid 16 %
--- NOTE | 2023-04-03 14:45 | Communication Note ---
Date of Service: April 03, 2023 Palliative care consult noted. I spoke with patient who would prefer to have his present for discussion. Family meeting scheduled for 11am on 04/04.
[2023-04-03 16:19] LABS: Partial Thromboplastin Ratio 1.1; Partial Thromboplastin Time 31.7 Seconds (21.0-31.0)
[2023-04-03] MEDS ORDERED: Nursing to Pharmacy Communication SCH (16:30)
[2023-04-03] MEDS ORDERED: HEPARIN SOD (PORCINE) 1000 UNIT/ML IV ONE (16:54)
[2023-04-03] MEDS ORDERED: HEPARIN IV BOLUS 3,000 UNITS in SYRINGE 0 ML IV ONE (17:00)
[2023-04-03] MEDS: HEPARIN SODIUM/DEXTROSE 25,000 UNITS/500 ML BAG IV SCH ×2 (17:23→17:34)
[2023-04-03] MEDS: fentaNYL 12 MCG/HR TDSY TD SCH (20:21)
[2023-04-03] MEDS: OSIMERTINIB MESYLATE PO SCH (20:22)
[2023-04-04 00:57] LABS: Partial Thromboplastin Ratio 2.9
[2023-04-04] MEDS: CHECK fentaNYL PATCH PLACEMENT SCH ×3 (00:59→15:20)
[2023-04-04 01:03] LABS: Partial Thromboplastin Time 80.7 Seconds (21.0-31.0)
[2023-04-04] MEDS: HEPARIN SODIUM/DEXTROSE 25,000 UNITS/500 ML BAG IV SCH ×3 (03:31→09:28)
[2023-04-04] MEDS: ACETAMINOPHEN 325 MG TAB PO PRN ×2 (04:36→22:37)
--- NOTE | 2023-04-04 06:58 | Hospitalist Progress Note ---
Date of Service April 04, 2023 Assessment & Plan (1) Elevated troponin: (2) Pneumonia: (3) Elevated d-dimer: (4) Thrombocytopenia: (5) Hypertension: (6) Adenocarcinoma of lung: Plan 42 yo male PMHx L lung adenocarcinoma with spinal mets, HTN, mixed restrictive/obstructive lung disease admitted for shortness of breath. Found to have L pneumonia and elevated troponin. #Elevated Troponin Suspect demand ischemia Repeat EKG today with resolution of ST changes Continue to monitor Will consider increasing beta blockade if tachycardia persists #Pneumonia Left-lower lobe infiltrate noted on CT On Zosyn F/u blood cultures Continues to be tachycardic, BP has improved Sputum culture s/p thoracentesis for pleural effusion #Elevated D dimer Noted on admission History of L LE DVT CTA neg LE Doppler with non occlusive thromboses Hold apixaban until thoracentesis Heparin drip until tonight, will hold Will restart apixaban 5mg BID after thoracentesis #Thrombocytopenia 58,000 in setting of elevated D dimer Will restart anticoagulation If any procedure is necessary will be high risk Plan for platelet transfusion below 20,000 or higher if necessary #Hypertension Chronic, was low at admission Hold antihypertensives at this time Monitor BPs, restart if pressure greater than 140/90 #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 GOC discussion took place, patient desires palliative care intervention at this time. He is likely to pursue additional chemotherapy, second line therapy. Understanding that this is unlikely to yeild curative results. Open to hospice if symptom burden outweighs benefits of futher chemotherapy. Discussed code status, desires full code at this time. during discussion - discussed necessity of knowing pts wishes in the event that he cannot communicate these at some point during his disease course #Electrolyte abnormalities replete as needed Dispo: Tele Diet: Regular DVT PPx: Eliquis Admission and Anticipated Discharge Date Admission Date: March 31, 2023 Supervising Physician Co-Signing Physician Notes I personally examined the patient and verified sánchez points of history and exam, discussed case, and agree with decision making and plan documented by Dr. Carrero. Patient is resting in bed, he endorses some pain as a result of the thoracentesis performed yesterday, overall fatigue, and remains on 3 L oxygen to support dyspnea. Patient had encounter with palliative care today to discuss goals of care for his metastatic adenocarcinoma of the lung. Subjective 42 yo male PMHx L lung adenocarcinoma with spinal mets, HTN, mixed restrictive/obstructive lung disease admitted for shortness of breath. Found to have L pneumonia and elevated troponin. This AM: No acute events overnight. NAD. s/p thoracentesis. SOB improved. Denies PAULINO, CP, N/V/D, LE swelling. present today for palliative care discussion. Review of Systems Review of Systems: reviewed, per HPI Physical Exam Physical Exam: General: patient resting comfortably, NAD, non-toxic in appearance, AA&O x 4, answers questions appropriately and follows commands. Skin: warm, dry, intact HEENT: NC/AT, anicteric sclera, conjunctiva without injection, moist mucus membranes, trachea midline, no thyromegaly, no JVD Heart: +S1/S2, regular, no m/r/g Lungs: Decreased breath sounds + mild rales L side Abd: +BS, soft, NT/ND, no masses/organomegaly/ascites Ext: warm, no clubbing/cyanosis or edema Neuro: nonfocal, patient AA&O x 4, speech intact, no facial droop, moving all extremities on command. Results & Data Results & Data Vital Signs (Past 12 Hours) Vital Signs Temp Pulse Pulse Resp BP BP Pulse Ox 04/03/23 22:00 112 H 04/04/23 04:12 37.7 C H 124 H 16 141/91 H 100 04/03/23 20:20 04/03/23 22:45 36.8 C 117 H 20 122/88 100 04/03/23 19:46 36.9 C 55 L 16 110/77 100 O2 Del Method O2 Flow Rate 04/03/23 22:00 04/04/23 04:12 Nasal Cannula 3.0 04/03/23 20:20 Nasal Cannula 3 04/03/23 22:45 Nasal Cannula 3.0 04/03/23 19:46 Nasal Cannula 3.0 Resident Activity Tracking Resident Involvement: Resident Care Provided Care Provided: Adult Hospital Medicine (2) Pneumonia Laterality: left Lung location: lower lobe of lung Pneumonia type: due to unspecified organism Qualified Code(s): J18.9 - Pneumonia, unspecified organism
--- NOTE | 2023-04-04 07:32 | Pulmonology Progress Note ---
Date of Service April 04, 2023 Assessment & Plan (1) Thrombocytopenia: (2) Pneumonia: Laterality: left Lung location: lower lobe of lung Pneumonia type: due to unspecified organism Qualified Code(s): J18.9 - Pneumonia, unspecified organism (3) Mixed restrictive and obstructive lung disease: (4) Pleural effusion on left: (5) Abnormal CT of the chest: (6) Adenocarcinoma of lung: Plan CT chest 03/30/2023 personally reviewed: Patchy opacity groundglass right upper lobe as well as the lingula Consolidative process in the left lower lobe with left-sided pleural effusion Left perihilar mass 5.5 x 4.3 cm Significant mediastinal lymphadenopathy, Station 4R lymphadenopathy seems to be worse 2D echo 03/31/2023: EF 60-65%, RV grossly normal in size, severe left atrium enlargement, moderate MR --Left lower lobe pneumonia Patient does have left hilar mass from before Is that playing a role in left lower lobe consolidative process, difficult to rule out although patient had left hilar mass since August 2022 Respiratory bio fire negative for everything Nasal MRSA negative Procalcitonin 0.21 CRP 8.02 -- Left-sided pleural effusion S/p thoracentesis 04/03/2023, 400 mL serosanguineous lymphocytic, transudative. Cytology is positive for adenocarcinoma Pleural: LDH 347, protein 3.2, pH 7.55 Sputum: LDH 804, protein 6.5 -- Mixed obstructive restrictive lung disease Restriction is most likely coming from the pleural involvement as well as a pleural effusion Obstruction from underlying lung cancer and/or possible asthma Continue with incentive spirometry PFT 09/27/2021: Mixed obstructive restrictive lung disease with mild obstruction and mild to moderate restriction, insignificant bronchodilator response, normal DLCO FVC 3.29 L 67%, FEV1 2.08 L 52%, FEV1/FVC 63%, RV 63%, TLC 62%, RV/TLC 101%, DLCO 75% -- Stage IV adenocarcinoma of the lung S/p EBUS 09/21/2021 PET/CT 10/03/2021 showed extensive uptake with nodules bilateral lungs PET/CT 12/2021 showed decrease in size of Left lung mass and resolving of pulmonary nodules on right but New lesions in the liver Was started on chemotherapy carboplatin/pemetrexed and completed 6 cycles on 08/26/2022 On maintenance pemetrexed/Tagrisso (Osimertinib) 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 DC heparin drip I discussed regarding need of goals of care with the patient. He is agreeable to have a talk with palliative care which will be later today. Chest x-ray from today shows mild blunting of the left costophrenic angle. I will start the patient on incentive spirometry, Mucinex and flutter valve Continue with antibiotics. Overall prognosis is guarded Case was discussed with RN at bedside Please note the above document was generated using voice recognition software. It may contain grammatical, syntax or spelling errors.Any formal questions or concerns about the content, text or information contained within the body of this dictation should be directly addressed to the provider for clarification. Admission and Anticipated Discharge Date Admission Date: March 31, 2023 Subjective Patient seen and examined at bedside. No acute distress, no adverse events overnight. He was sleeping at the time of examination Overall he said he is feeling the same. Denies any nausea vomiting Still very lethargic Denies any headache. Fair appetite. Still having loose bowel movements Review of Systems Review of Systems: All systems reviewed & are unremarkable except as noted in Subjective Physical Exam Physical Exam: Constitutional: No acute distress HEENT: EOMI, PERRLA Respiratory system: Decreased air entry on the left side, no wheeze, rhonchi, mild crackles bilaterally CVS: S1-S2 positive, no murmurs or gallops, tachycardia Abdomen: Soft, nontender, nondistended, positive bowel sounds x4 Extremities: +2 pulses bilaterally radialis/ dorsalis pedis, no cyanosis, no edema Neuro: Sleeping but easily arousable and answering all the questions Psych: Normal mood and affect G/U: No Moran Skin: no rashes, warm and dry Lymphatic: no cervical or axillary lymphadenopathy Results & Data Results & Data Vital Signs (Past 12 Hours) Vital Signs Temp Pulse Pulse Resp BP BP Pulse Ox 04/03/23 22:00 112 H 04/04/23 04:12 37.7 C H 124 H 16 141/91 H 100 04/03/23 20:20 04/03/23 22:45 36.8 C 117 H 20 122/88 100 04/03/23 19:46 36.9 C 55 L 16 110/77 100 O2 Del Method O2 Flow Rate 04/03/23 22:00 04/04/23 04:12 Nasal Cannula 3.0 04/03/23 20:20 Nasal Cannula 3 04/03/23 22:45 Nasal Cannula 3.0 04/03/23 19:46 Nasal Cannula 3.0 Laboratory Results 04/03/23 01:37 04/03/23 01:37 PG Care Time/CCT Total # of Minutes Spent Total Time Spent with Patient: Total time spent is greater than 50% in coordination of care (as documented) at patient's floor/unit and/or counseling patient: Coding Level of Care Code 87843 SUB INP/OBS CARE 3/50MIN Diagnoses Thrombocytopenia D69.6 Pneumonia J18.9 Laterality: left Lung location: lower lobe of lung Pneumonia type: due to unspecified organism Mixed restrictive and obstructive lung disease J43.9; J98.4 Pleural effusion on left J90 Abnormal CT of the chest R93.89 Adenocarcinoma of lung C34.90
[2023-04-04 07:48] LABS: Basophils # (auto) 0.02 K/uL (0.00-0.20); Basophils % (auto) 0.2 %; Eosinophils # (auto) 0.27 K/uL (0.00-0.50); Eosinophils % (auto) 2.3 %; Hemoglobin 9.4 g/dl (14.0-18.0); Immature Granulocytes # (auto) 0.13 K/uL (0.01-0.20); Immature Granulocytes % (auto) 1.1 %; Lymphocytes % (auto) 8.6 %; Mean Corpuscular Hgb Conc 34.8 g/dL (32.0-36.0); Mean Corpuscular Volume 83.3 fL (80.0-100.0); Mean Platelet Volume 12.4 fL (9.4-12.4); Monocytes # (auto) 0.56 K/uL (0.11-0.59); Monocytes % (auto) 4.8 %; Neutrophils # (auto) 9.63 K/uL (1.40-6.50); Platelet Count 62 K/uL (130-400); RDW Coefficient of Variation 14.9 % (11.5-14.5); RDW Standard Deviation 45.2 fL (36.4-46.3); Red Blood Count 3.24 M/uL (4.70-6.10); White Blood Count 11.61 K/ul (4.8-10.8)
[2023-04-04 08:07] LABS: Albumin Globulin Ratio 1.1 (0.9-2); Albumin Level 3.2 gm/dl (3.4-5.0); BUN Creatinine Ratio 18.2 (10-20); Bilirubin,Total 0.8 mg/dl (0.2-1.0); Calcium 7.3 mg/dl (8.6-10.3); Creatinine Clr Calc Pharmacy 148.8 ml/min; Est GFR (African American) 140.2 ml/min; Est GFR (Non-African American) 120.9 ml/min; Globulin 2.8 gm/dl (2.5-4.0); Potassium 3.4 mmol/L (3.5-5.1)
--- NOTE | 2023-04-04 08:10 | XRay Report ---
XR chest 1V portable CLINICAL HISTORY: f/u TECHNIQUE: Single frontal radiograph of the chest was obtained. Comparison: Comparison is made to chest radiograph 04/03/2023 FINDINGS: No lines and tubes are seen. Cardiomegaly is noted. Left lower lung airspace opacity is seen, similar to prior exam. Small left pleural effusion. IMPRESSION: Small left pleural effusion with underlying airspace opacities, essentially unchanged from prior exam . ACT 112: Negative or not required by law. Electronically signed by: Kenan Fountain M.D. 04/04/2023 8:07 AM
[2023-04-04] MEDS: POTASSIUM CHLORIDE PWD 20 MEQ PACK PO SCH (08:42)
[2023-04-04 08:43] LABS: Partial Thromboplastin Ratio 2.8
[2023-04-04] MEDS: METOPROLOL SUCC 25MG EXT REL TAB PO SCH (08:43)
[2023-04-04 08:50] LABS: Partial Thromboplastin Time 78.2 Seconds (21.0-31.0)
--- NOTE | 2023-04-04 08:59 | Palliative Care Consultation ---
Date of Consultation April 04, 2023 Assessment & Plan (1) Dyspnea: Improved after thoracentesis (2) Pain: Back pain with bony metastases - on fentanyl patch. He does have prn oxycdone but has not used any. He has not really been moving much. Right leg pain - likely radicular with bony mets. With his complaint of fatigue, would avoid adding gabapentin. Discussed lidocaine patch which would have minimal side effects. Could also consider steroids with bony mets and his fatigue if lidocaine not effective. (3) Palliative care encounter: I met with Mr. Goldman and his at bedside. Dr. Carrero was also present. We discussed role of palliative care and answered his questions about difference between palliative care and hospice. He tells me that initially systemic therapy was very difficult for him. He worries about what treatment will be like moving forward. We talked about whether there were limits to what he would want for his care. He does feel that there may be a limit to what he would tolerate with systemic treatment and understands that he can choose not to continue this at any time if burden outweighs benefits. At this time, he does want to proceed with treatment if possible and would even consider clinical trial. 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 His reports that she has been much more emotional. His biggest worry is whether his daughter will have genetic mutation and be susceptible to cancer as well. His 's biggest concern is him suffering and suffocating at the end of his life. I assured them that medication can be used to manage symptoms and maintain his comfort, even if disease management is not possible. They asked about advance directives and we discussed his code status. We reviewed statistical outcomes of CPR and what that would look like. He does not think that he would CPR but is going to consider this and discuss with his . He would want her to be his surrogate decision maker if he were not able to make decisions. We discussed option for ongoing f/u with palliative care as an outpatient. They would like to follow with palliative care. Hospital team will submit referral for outpatient palliative care if he is discharged over the weekend. History of Present Illness Reason for Consultation: goals of care Requesting Physician: Dr. Vasquez Attending Physician: Anna Deutsch DO History of Present Illness 42 yo gentleman with adenocarcinoma of the lung and mixed obstructive restrictive pulmonary disease. He has known lymphatic, hepatic and skeletal metastases with 5.5 x 4.3 cm L perihilar mass. He is followed by Dr. Burrell. He presented with shortness of breath and was found to have LLL pneumonia and a left pleural effusion. He underwent thoracentesis yesterday for 400cc. He is awake and alert. His biggest complaints are fatigue and pain. He has ongoing back pain previous pathologic fracture at T10. He is currently having pain in his left chest after thoracentesis and has had intermittent electric shock pain radiation down his right leg. He does have metastatic lesions at L2 and sacrum. Allergies Allergy/AdvReac Type Severity Reaction Status Date / Time lactose AdvReac Mild Gastrointestinal Verified 04/01/23 16:09 Upset Home Medications Medication Instructions Recorded Confirmed Type amlodipine 10 mg tablet 10 mg PO DAILY 09/21/21 03/31/23 History oxycodone 5 mg capsule 5 mg PO Q6H PRN Pain 10/09/21 03/31/23 History Incentive Spirometer #1 ea 10/16/21 11/05/22 Rx apixaban 5 mg tablet (Eliquis) mg 03/31/23 History fentanyl 12 mcg/hr transdermal mcg transdermal Q72H 03/31/23 History patch pantoprazole 40 mg tablet,delayed 40 mg PO 1XD 03/31/23 03/31/23 History release Patient History Medical History Abnormal CT of the chest Adenocarcinoma of lung Cavitary lesion of lung Hypertension Hypokalemia LAD (lymphadenopathy), mediastinal No chronic diseases present Pleural effusion on left Surgical History History of surgery No significant past surgical history For undescended testes Family History Father Cancer from Lung Cancer at 64 y/o Mother No problems noted. Daughter No problems noted. 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[employer]; Feels Safe at Home: Yes Diet: regular caffeine: No during the past year weight has: remained stable Assistive Devices: None Review of Systems Review of Systems: Pain 2/3 Dyspnea 0/3 Nausea 0/3 Drowsiness 0/3 Physical Exam Constitutional: no acute distress Respiratory: normal respiratory effort; no labored breathing Cardiovascular: Rate/Rhythm: regular rate and regular rhythm Neurologic: Speech / Cognition: normal cognition Psychiatric: somewhat flat affect Results & Data Vital Signs (Past 12 Hours) Vital Signs Temp Pulse Pulse Resp BP BP Pulse Ox 04/04/23 07:54 97.7 F 94 H 18 117/83 100 04/04/23 07:43 04/03/23 22:00 112 H 04/04/23 04:12 99.9 F H 124 H 16 141/91 H 100 04/03/23 22:45 98.2 F 117 H 20 122/88 100 O2 Del Method O2 Flow Rate 04/04/23 07:54 Nasal Cannula 3 04/04/23 07:43 Nasal Cannula 3 04/03/23 22:00 04/04/23 04:12 Nasal Cannula 3.0 04/03/23 22:45 Nasal Cannula 3.0 PG Care Time/CCT Total # of Minutes Spent Total Time Spent: 90 Total Time Spent with Patient: Total time spent is greater than 50% in coordination of care (as documented) at patient's floor/unit and/or counseling patient: symptom management, goals of care, code status, advance directives, hospice, patient and family education and support Coding Level of Care Code 15328 INT INP/OBS CARE 3/75MIN Diagnoses Dyspnea R06.00 Pain R52 Palliative care encounter Z51.5
[2023-04-04] MEDS: guaiFENesin 600 MG TABCR PO SCH ×2 (09:37→21:47)
[2023-04-04] MEDS: APIXABAN 5 MG TABLET PO SCH ×2 (09:37→21:47)
[2023-04-04] MEDS ORDERED: PIPER/TAZO 4.5g in D5W MINI-B 100 ML IV ONE (10:00)
[2023-04-04] MEDS: oxyCODONE HCL IR 5 MG TAB (IMMEDIATE RELEASE) PO PRN ×2 (12:09→18:14)
[2023-04-04] MEDS: PIPERACILLIN/TAZOBACTAM 4.5 GM in DEXTROSE 5% MINI-B 100 ML IV SCH ×2 (14:41→22:37)
[2023-04-04] MEDS: OSIMERTINIB MESYLATE PO SCH (21:47)
[2023-04-05] MEDS: CHECK fentaNYL PATCH PLACEMENT SCH ×3 (00:59→15:32)
--- NOTE | 2023-04-05 06:51 | Hospitalist Progress Note ---
Date of Service April 05, 2023 Assessment & Plan (1) Elevated troponin: (2) Pneumonia: (3) Elevated d-dimer: (4) Thrombocytopenia: (5) Hypertension: (6) Adenocarcinoma of lung: (7) Declining functional status: (8) Physical deconditioning: (9) Ambulatory dysfunction: (10) Dyspnea and respiratory abnormalities: (11) Malignant pleural effusion: (12) Requires continuous at home supplemental oxygen: Plan 42 yo male PMHx L lung adenocarcinoma with spinal mets, HTN, mixed restrictive/obstructive lung disease admitted for shortness of breath. Found to have L pneumonia and elevated troponin. Plan for DC home today Needs palliative care referral for outpatient follow up #Elevated Troponin Suspect demand ischemia Repeat EKG today with resolution of ST changes Continue to monitor Will consider increasing beta blockade if tachycardia persists #Pneumonia Left-lower lobe infiltrate noted on CT On Zosyn F/u blood cultures Continues to be tachycardic, BP has improved Sputum culture s/p thoracentesis for pleural effusion #Malignant Pleural Effusion Contents of aspirated fluid on thoracentesis positive for malignant cells #Elevated D dimer Noted on admission History of L LE DVT CTA neg LE Doppler with non occlusive thromboses Hold apixaban until thoracentesis Heparin drip until tonight, will hold Will restart apixaban 5mg BID after thoracentesis #Thrombocytopenia 58,000 in setting of elevated D dimer Will restart anticoagulation If any procedure is necessary will be high risk Plan for platelet transfusion below 20,000 or higher if necessary #Hypertension Chronic, was low at admission Hold antihypertensives at this time Monitor BPs, restart if pressure greater than 140/90 #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 GOC discussion took place, patient desires palliative care intervention at this time. He is likely to pursue additional chemotherapy, second line therapy. Understanding that this is unlikely to yeild curative results. Open to hospice if symptom burden outweighs benefits of futher chemotherapy. Discussed code status, desires full code at this time. during discussion - discussed necessity of knowing pts wishes in the event that he cannot communicate these at some point during his disease course #Electrolyte abnormalities replete as needed #Ambulatory Dysfunction Patients exercise tolerance and respiratory status make him a very high fall risk Unable to climb stairs, ambulate short distances to complete ADLs Will require assistive devices to achieve any degree of independence within his own home. #Declining Functional Status Pt completed PT assessment today Very poor exercise tolerance Unable to climb stairs in his home to reach bedroom Will require first floor accommodations (hospital bed, wheelchair, walker, bedside commode) in order to safely return home at this time Pt desires further chemotherapy but overall prognosis is poor. Functional status will likely continue to decline #Dyspnea and Respiratory Abnormalities During PT pt was on room air and desaturated to low [id number] At rest lying in bed, pt requires oxygen due to air hunger Some component can be attributed to his acute condition, but overall this is likely due to the large tumor burden in his lung #Need for Home Oxygen As above, pt will require home oxygen 1-2L at rest, higher during ambulation or any home PT to regain any loss of function Dispo: Tele Diet: Regular DVT PPx: Eliquis Admission and Anticipated Discharge Date Admission Date: March 31, 2023 Supervising Physician Co-Signing Physician Notes I personally examined the patient and verified sánchez points of history and exam, discussed case, and agree with decision making and plan documented by Dr. Carrero. Discussed with patient and his at bedside needs and plans to get him home in setting of significant deconditioning and weakness, oxygen need, and decreased p.o. intake in the setting of metastatic adenocarcinoma of the lung. DME ordered to assist patient at home, he will need hospital bed for ground- floor as well as bedside commode, wheelchair, and walker. At present, patient still hopeful of pursuing additional chemotherapy. We discussed hospice approach as well. Patient and his expressed desire to speak with oncology as well as palliative care on Friday to review plan. Subjective 42 yo male PMHx L lung adenocarcinoma with spinal mets, HTN, mixed restrictive/obstructive lung disease admitted for shortness of breath. Found to have L pneumonia and elevated troponin. This AM: No acute events overnight. NAD. s/p thoracentesis. SOB improved. Denies PAULINO, CP, N/V/D, LE swelling. present today our conversation and PT assessment earlier. Pt with some pain in the area of the thoracentesis, well controlled at this time. Review of Systems Review of Systems: reviewed, per HPI Physical Exam Physical Exam: General: patient resting comfortably, NAD, non-toxic in appearance, AA&O x 4, answers questions appropriately and follows commands. Skin: warm, dry, intact HEENT: NC/AT, anicteric sclera, conjunctiva without injection, moist mucus membranes, trachea midline, no thyromegaly, no JVD Heart: +S1/S2, regular, no m/r/g Lungs: Decreased breath sounds + mild rales L side Abd: +BS, soft, NT/ND, no masses/organomegaly/ascites Ext: warm, no clubbing/cyanosis or edema Neuro: nonfocal, patient AA&O x 4, speech intact, no facial droop, moving all extremities on command. Results & Data Results & Data Vital Signs (Past 12 Hours) Vital Signs Temp Pulse Pulse Resp BP BP Pulse Ox 04/05/23 02:41 37 C 111 H 18 116/83 100 04/05/23 01:39 124 H 04/05/23 01:07 36.5 C 04/04/23 21:30 04/04/23 22:30 37.8 C H 124 H 18 119/83 99 04/04/23 19:43 36.8 C 118 H 18 124/78 99 O2 Del Method O2 Flow Rate 04/05/23 02:41 Room Air 04/05/23 01:39 04/05/23 01:07 04/04/23 21:30 Nasal Cannula 3 04/04/23 22:30 Nasal Cannula 3 04/04/23 19:43 Nasal Cannula 2 Resident Activity Tracking Resident Involvement: Resident Care Provided Care Provided: Adult Hospital Medicine (2) Pneumonia Laterality: left Lung location: lower lobe of lung Pneumonia type: due to unspecified organism Qualified Code(s): J18.9 - Pneumonia, unspecified organism
[2023-04-05 07:29] LABS: Basophils # (auto) 0.02 K/uL (0.00-0.20); Basophils % (auto) 0.2 %; Eosinophils % (auto) 2.8 %; Hematocrit (blood only) 27.3 % (42.0-52.0); Hemoglobin 9.2 g/dl (14.0-18.0); Immature Granulocytes # (auto) 0.22 K/uL (0.01-0.20); Lymphocytes # (auto) 0.86 K/uL (1.20-3.40); Mean Corpuscular Hemoglobin 28.5 pg (25.0-34.0); Mean Corpuscular Hgb Conc 33.7 g/dL (32.0-36.0); Mean Corpuscular Volume 84.5 fL (80.0-100.0); Mean Platelet Volume 12.5 fL (9.4-12.4); Monocytes # (auto) 0.55 K/uL (0.11-0.59); Monocytes % (auto) 5.1 %; Neutrophils # (auto) 8.82 K/uL (1.40-6.50); Neutrophils % (auto) 81.9 %; Platelet Count 43 K/uL (130-400); RDW Coefficient of Variation 14.8 % (11.5-14.5); RDW Standard Deviation 45.8 fL (36.4-46.3); Red Blood Count 3.23 M/uL (4.70-6.10); White Blood Count 10.77 K/ul (4.8-10.8)
[2023-04-05 07:47] LABS: BUN Creatinine Ratio 16.7 (10-20); Bilirubin,Total 0.8 mg/dl (0.2-1.0); Calcium 7.3 mg/dl (8.6-10.3); Creatinine Clr Calc Pharmacy 136.4 ml/min; Est GFR (African American) 135.2 ml/min; Est GFR (Non-African American) 116.7 ml/min; Globulin 2.9 gm/dl (2.5-4.0); Potassium 3.5 mmol/L (3.5-5.1); Total Protein 5.9 gm/dl (6.0-8.3)
[2023-04-05] MEDS: PIPERACILLIN/TAZOBACTAM 4.5 GM in DEXTROSE 5% MINI-B 100 ML IV SCH ×3 (08:27→23:26)
[2023-04-05] MEDS: METOPROLOL SUCC 25MG EXT REL TAB PO SCH (08:28)
[2023-04-05] MEDS: POTASSIUM CHLORIDE PWD 20 MEQ PACK PO SCH (08:28)
[2023-04-05] MEDS: guaiFENesin 600 MG TABCR PO SCH ×2 (08:28→21:52)
[2023-04-05] MEDS: APIXABAN 5 MG TABLET PO SCH ×2 (08:28→21:51)
[2023-04-05] MEDS: LIDOCAINE 5% 1 PATCH TD SCH (08:29)
--- NOTE | 2023-04-05 08:59 | Pulmonology Progress Note ---
Date of Service April 05, 2023 Assessment & Plan (1) Thrombocytopenia: (2) Pneumonia: Laterality: left Lung location: lower lobe of lung Pneumonia type: due to unspecified organism Qualified Code(s): J18.9 - Pneumonia, unspecified organism (3) Mixed restrictive and obstructive lung disease: (4) Pleural effusion on left: (5) Abnormal CT of the chest: (6) Adenocarcinoma of lung: Plan CT chest 03/30/2023 personally reviewed: Patchy opacity groundglass right upper lobe as well as the lingula Consolidative process in the left lower lobe with left-sided pleural effusion Left perihilar mass 5.5 x 4.3 cm Significant mediastinal lymphadenopathy, Station 4R lymphadenopathy seems to be worse 2D echo 03/31/2023: EF 60-65%, RV grossly normal in size, severe left atrium enlargement, moderate MR --Left lower lobe pneumonia Patient does have left hilar mass from before Is that playing a role in left lower lobe consolidative process, difficult to rule out although patient had left hilar mass since August 2022 Respiratory bio fire negative for everything Nasal MRSA negative Procalcitonin 0.21 CRP 8.02 -- Left-sided pleural effusion S/p thoracentesis 04/03/2023, 400 mL serosanguineous lymphocytic, transudative. Cytology is positive for adenocarcinoma Pleural: LDH 347, protein 3.2, pH 7.55 Sputum: LDH 804, protein 6.5 -- Mixed obstructive restrictive lung disease Restriction is most likely coming from the pleural involvement as well as a pleural effusion Obstruction from underlying lung cancer and/or possible asthma Continue with incentive spirometry PFT 09/27/2021: Mixed obstructive restrictive lung disease with mild obstruction and mild to moderate restriction, insignificant bronchodilator response, normal DLCO FVC 3.29 L 67%, FEV1 2.08 L 52%, FEV1/FVC 63%, RV 63%, TLC 62%, RV/TLC 101%, DLCO 75% -- Stage IV adenocarcinoma of the lung S/p EBUS 09/21/2021 PET/CT 10/03/2021 showed extensive uptake with nodules bilateral lungs PET/CT 12/2021 showed decrease in size of Left lung mass and resolving of pulmonary nodules on right but New lesions in the liver Was started on chemotherapy carboplatin/pemetrexed and completed 6 cycles on 08/26/2022 On maintenance pemetrexed/Tagrisso (Osimertinib) 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 Overall prognosis is guarded No further recommendation from pulmonary perspective, will sign off Please call directly with any questions Please note the above document was generated using voice recognition software. It may contain grammatical, syntax or spelling errors.Any formal questions or concerns about the content, text or information contained within the body of this dictation should be directly addressed to the provider for clarification. Admission and Anticipated Discharge Date Admission Date: March 31, 2023 Subjective Patient seen and examined at bedside. No acute distress, no adverse events overnight. Patient was saturating 100% on 2 L nasal cannula. I went down to 1 L. Overall he said he is feeling better. Still complains of generalized lethargy Had 3 bowel movements so far which are watery. Denies any headache, no dizziness Was asking when he can go home Review of Systems Review of Systems: All systems reviewed & are unremarkable except as noted in Subjective Physical Exam Physical Exam: Constitutional: No acute distress HEENT: EOMI, PERRLA Respiratory system: Decreased air entry on the left side, no wheeze, rhonchi, mild crackles bilaterally CVS: S1-S2 positive, no murmurs or gallops, tachycardia Abdomen: Soft, nontender, nondistended, positive bowel sounds x4 Extremities: +2 pulses bilaterally radialis/ dorsalis pedis, no cyanosis, no edema Neuro: Awake alert oriented x3 Psych: Normal mood and affect G/U: No Moran Skin: no rashes, warm and dry Lymphatic: no cervical or axillary lymphadenopathy Results & Data Results & Data Vital Signs (Past 12 Hours) Vital Signs Temp Pulse Pulse Resp BP BP Pulse Ox 04/05/23 07:32 37.1 C 120 H 19 123/87 99 04/05/23 02:41 37 C 111 H 18 116/83 100 04/05/23 01:39 124 H 04/05/23 01:07 36.5 C 04/04/23 21:30 04/04/23 22:30 37.8 C H 124 H 18 119/83 99 O2 Del Method O2 Flow Rate 04/05/23 07:32 Nasal Cannula 3 04/05/23 02:41 Room Air 04/05/23 01:39 04/05/23 01:07 04/04/23 21:30 Nasal Cannula 3 04/04/23 22:30 Nasal Cannula 3 Laboratory Results 04/05/23 06:56 04/05/23 06:56 PG Care Time/CCT Total # of Minutes Spent Total Time Spent with Patient: Total time spent is greater than 50% in coordination of care (as documented) at patient's floor/unit and/or counseling patient: Coding Level of Care Code 38405 SUB INP/OBS CARE 2/35MIN Diagnoses Thrombocytopenia D69.6 Pneumonia J18.9 Laterality: left Lung location: lower lobe of lung Pneumonia type: due to unspecified organism Mixed restrictive and obstructive lung disease J43.9; J98.4 Pleural effusion on left J90 Abnormal CT of the chest R93.89 Adenocarcinoma of lung C34.90
[2023-04-05] MEDS: OSIMERTINIB MESYLATE PO SCH (21:52)
[2023-04-06] MEDS: CHECK fentaNYL PATCH PLACEMENT SCH ×3 (00:58→15:34)
--- NOTE | 2023-04-06 06:56 | Hospitalist Progress Note ---
Date of Service April 06, 2023 Assessment & Plan (1) Elevated troponin: (2) Pneumonia: (3) Elevated d-dimer: (4) Thrombocytopenia: (5) Hypertension: (6) Adenocarcinoma of lung: (7) Declining functional status: (8) Physical deconditioning: (9) Ambulatory dysfunction: (10) Dyspnea and respiratory abnormalities: (11) Malignant pleural effusion: (12) Requires continuous at home supplemental oxygen: Plan 42 yo male PMHx L lung adenocarcinoma with spinal mets, HTN, mixed restrictive/obstructive lung disease admitted for shortness of breath. Found to have L pneumonia and elevated troponin. Needs palliative care referral for outpatient follow up #Elevated Troponin Suspect demand ischemia Repeat EKG today with resolution of ST changes Continue to monitor Will consider increasing beta blockade if tachycardia persists #Pneumonia Left-lower lobe infiltrate noted on CT On Zosyn F/u blood cultures Continues to be tachycardic, BP has improved Sputum culture s/p thoracentesis for pleural effusion #Malignant Pleural Effusion Contents of aspirated fluid on thoracentesis positive for malignant cells #Elevated D dimer Noted on admission History of L LE DVT CTA neg LE Doppler with non occlusive thromboses Hold apixaban until thoracentesis Heparin drip until tonight, will hold Will restart apixaban 5mg BID after thoracentesis #Thrombocytopenia 58,000 in setting of elevated D dimer Will restart anticoagulation If any procedure is necessary will be high risk Plan for platelet transfusion below 20,000 or higher if necessary #Hypertension Chronic, was low at admission Hold antihypertensives at this time Monitor BPs, restart if pressure greater than 140/90 #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 GOC discussion took place, patient desires palliative care intervention at this time. He is likely to pursue additional chemotherapy, second line therapy. Understanding that this is unlikely to yeild curative results. Open to hospice if symptom burden outweighs benefits of futher chemotherapy. Discussed code status, desires full code at this time. during discussion - discussed necessity of knowing pts wishes in the event that he cannot communicate these at some point during his disease course #Electrolyte abnormalities replete as needed #Ambulatory Dysfunction Patients exercise tolerance and respiratory status make him a very high fall risk Unable to climb stairs, ambulate short distances to complete ADLs Will require assistive devices to achieve any degree of independence within his own home. #Declining Functional Status Pt completed PT assessment today Very poor exercise tolerance Unable to climb stairs in his home to reach bedroom Will require first floor accommodations (hospital bed, wheelchair, walker, be dside commode) in order to safely return home at this time Pt desires further chemotherapy but overall prognosis is poor. Functional status will likely continue to decline #Dyspnea and Respiratory Abnormalities During PT pt was on room air and desaturated to low [id number] At rest lying in bed, pt requires oxygen due to air hunger Some component can be attributed to his acute condition, but overall this is likely due to the large tumor burden in his lung #Need for Home Oxygen As above, pt will require home oxygen 1-2L at rest, higher during ambulation or any home PT to regain any loss of function Dispo: Tele Diet: Regular DVT PPx: Eliquis Admission and Anticipated Discharge Date Admission Date: March 31, 2023 Supervising Physician Co-Signing Physician Notes I personally examined the patient and verified sánchez points of history and exam, discussed case, and agree with decision making and plan documented by Dr. Carrero. Patient had reported episode of scant hemoptysis following near as piration with soda today. Patient and anticipate discussion with palliative care and oncology on Friday. Plan is for patient to return home. Subjective 42 yo male PMHx L lung adenocarcinoma with spinal mets, HTN, mixed restrictive/obstructive lung disease admitted for shortness of breath. Found to have L pneumonia and elevated troponin. Last night pt became confused, disoriented, noncombative, did not require medication. This AM: NAD. Pain well controlled. Denies PAULINO, CP, N/V/D, LE swelling. More somnolent today. Episode of hemoptysis today after he started coughing from aspirating diet coke. Review of Systems Review of Systems: reviewed, per HPI Physical Exam Physical Exam: General: patient resting comfortably, NAD, non-toxic in appearance, AA&O x 4, answers questions appropriately and follows commands. Skin: warm, dry, intact HEENT: NC/AT, anicteric sclera, conjunctiva without injection, moist mucus membranes, trachea midline, no thyromegaly, no JVD Heart: +S1/S2, regular, no m/r/g Lungs: Decreased breath sounds + mild rales L side Abd: +BS, soft, NT/ND, no masses/organomegaly/ascites Ext: warm, no clubbing/cyanosis or edema Neuro: nonfocal, patient AA&O x 4, speech intact, no facial droop, moving all extremities on command. Results & Data Results & Data Vital Signs (Past 12 Hours) Vital Signs Temp Pulse Pulse Resp BP Pulse Ox O2 Del Method 04/05/23 22:30 121 H 04/06/23 03:00 37.4 C 118 H 18 128/89 98 Nasal Cannula 04/05/23 21:50 Nasal Cannula 04/05/23 23:00 37.4 C 119 H 20 123/87 93 Nasal Cannula 04/05/23 19:00 37.9 C H 115 H 20 119/82 98 Nasal Cannula O2 Flow Rate 04/05/23 22:30 04/06/23 03:00 04/05/23 21:50 3 04/05/23 23:00 04/05/23 19:00 Resident Activity Tracking Resident Involvement: Resident Care Provided Care Provided: Adult Hospital Medicine (2) Pneumonia Laterality: left Lung location: lower lobe of lung Pneumonia type: due to unspecified organism Qualified Code(s): J18.9 - Pneumonia, unspecified organism
[2023-04-06 07:01] LABS: Basophils # (auto) 0.02 K/uL (0.00-0.20); Basophils % (auto) 0.2 %; Eosinophils # (auto) 0.35 K/uL (0.00-0.50); Eosinophils % (auto) 2.9 %; Hematocrit (blood only) 25.6 % (42.0-52.0); Hemoglobin 8.9 g/dl (14.0-18.0); Immature Granulocytes # (auto) 0.26 K/uL (0.01-0.20); Immature Granulocytes % (auto) 2.2 %; Lymphocytes # (auto) 1.24 K/uL (1.20-3.40); Lymphocytes % (auto) 10.3 %; Mean Corpuscular Hemoglobin 28.5 pg (25.0-34.0); Mean Corpuscular Hgb Conc 34.8 g/dL (32.0-36.0); Mean Corpuscular Volume 82.1 fL (80.0-100.0); Monocytes % (auto) 5.8 %; Neutrophils # (auto) 9.47 K/uL (1.40-6.50); Neutrophils % (auto) 78.6 %; Platelet Count 42 K/uL (130-400); RDW Coefficient of Variation 14.6 % (11.5-14.5); RDW Standard Deviation 43.2 fL (36.4-46.3); Red Blood Count 3.12 M/uL (4.70-6.10); White Blood Count 12.04 K/ul (4.8-10.8)
[2023-04-06 07:14] LABS: Albumin Level 3.2 gm/dl (3.4-5.0); BUN Creatinine Ratio 14.1 (10-20); Bilirubin,Total 0.8 mg/dl (0.2-1.0); Calcium 7.8 mg/dl (8.6-10.3); Creatinine Clr Calc Pharmacy 125.9 ml/min; Est GFR (African American) 130.9 ml/min; Est GFR (Non-African American) 112.9 ml/min; Globulin 3.2 gm/dl (2.5-4.0); Potassium 3.4 mmol/L (3.5-5.1); Total Protein 6.4 gm/dl (6.0-8.3)
[2023-04-06] MEDS: PIPERACILLIN/TAZOBACTAM 4.5 GM in DEXTROSE 5% MINI-B 100 ML IV SCH ×2 (08:04→15:34)
[2023-04-06] MEDS: LIDOCAINE 5% 1 PATCH TD SCH (08:05)
[2023-04-06] MEDS: METOPROLOL SUCC 25MG EXT REL TAB PO SCH (08:05)
[2023-04-06] MEDS: guaiFENesin 600 MG TABCR PO SCH ×2 (08:05→20:57)
[2023-04-06] MEDS: APIXABAN 5 MG TABLET PO SCH ×2 (08:05→20:57)
--- NOTE | 2023-04-06 08:26 | XRay Report ---
SINGLE VIEW CHEST CLINICAL HISTORY: Pleural effusion. FINDINGS: An AP, portable, upright chest radiograph is compared to study dated 04/04/2023 and correlat ed with chest CT dated 03/30/2023. The examination is degraded by portable technique and patient rotat ion. The heart appears mildly enlarged. There is a small to moderate left pleural effusion. This has modestly increased in size from 04/04/2023, with associated left basilar consolidation. The right anuj g appears clear. No pneumothorax is seen. The bony thorax is grossly intact. Vascular coils project o cesario the liver. IMPRESSION: Left pleural effusion with left basilar consolidation. This has increased in size from . ACT 112: Negative or not required by law. Electronically signed by: Buzz Duenas M.D. 04/06/2023 8:24 AM
[2023-04-06] MEDS: POTASSIUM CHLORIDE CRTAB 20 MEQ TABCR PO SCH (08:35)
[2023-04-06] MEDS ORDERED: LACTATED RINGER'S 500 ML IV ONE (10:39)
[2023-04-06] MEDS: LACTATED RINGER'S 1,000 ML IV SCH ×2 (11:45→19:39)
[2023-04-06] MEDS: fentaNYL 12 MCG/HR TDSY TD SCH (20:57)
[2023-04-06] MEDS: OSIMERTINIB MESYLATE PO SCH (20:58)
[2023-04-07] MEDS: PIPERACILLIN/TAZOBACTAM 4.5 GM in DEXTROSE 5% MINI-B 100 ML IV SCH ×3 (00:22→14:31)
[2023-04-07] MEDS: CHECK fentaNYL PATCH PLACEMENT SCH ×3 (00:49→14:31)
[2023-04-07] MEDS: LACTATED RINGER'S 1,000 ML IV SCH ×3 (03:41→22:55)
--- NOTE | 2023-04-07 06:49 | Hospitalist Progress Note ---
Date of Service April 07, 2023 Assessment & Plan (1) Elevated troponin: (2) Pneumonia: (3) Elevated d-dimer: (4) Thrombocytopenia: (5) Hypertension: (6) Adenocarcinoma of lung: (7) Declining functional status: (8) Physical deconditioning: (9) Ambulatory dysfunction: (10) Dyspnea and respiratory abnormalities: (11) Malignant pleural effusion: (12) Requires continuous at home supplemental oxygen: Plan 42 yo male PMHx L lung adenocarcinoma with spinal mets, HTN, mixed restrictive/obstructive lung disease admitted for shortness of breath. Found to have L pneumonia and elevated troponin. Needs palliative care referral for outpatient follow up #Elevated Troponin Suspect demand ischemia Repeat EKG today with resolution of ST changes Continue to monitor Will consider increasing beta blockade if tachycardia persists #Pneumonia Left-lower lobe infiltrate noted on CT On Zosyn F/u blood cultures Continues to be tachycardic, BP has improved Sputum culture s/p thoracentesis for pleural effusion #Malignant Pleural Effusion Contents of aspirated fluid on thoracentesis positive for malignant cells #Elevated D dimer Noted on admission History of L LE DVT CTA neg LE Doppler with non occlusive thromboses Hold apixaban until thoracentesis Heparin drip until tonight, will hold Will restart apixaban 5mg BID after thoracentesis #Thrombocytopenia 58,000 in setting of elevated D dimer Will restart anticoagulation If any procedure is necessary will be high risk Plan for platelet transfusion below 20,000 or higher if necessary #Hypertension Chronic, was low at admission Hold antihypertensives at this time Monitor BPs, restart if pressure greater than 140/90 #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 GOC discussion took place, patient desires palliative care intervention at this time. He is likely to pursue additional chemotherapy, second line therapy. Understanding that this is unlikely to yeild curative results. Open to hospice if symptom burden outweighs benefits of futher chemotherapy. Discussed code status, desires full code at this time. during discussion - discussed necessity of knowing pts wishes in the event that he cannot communicate these at some point during his disease course #Electrolyte abnormalities replete as needed #Ambulatory Dysfunction Patients exercise tolerance and respiratory status make him a very high fall risk Unable to climb stairs, ambulate short distances to complete ADLs Will require assistive devices to achieve any degree of independence within his own home. #Declining Functional Status Pt completed PT assessment today Very poor exercise tolerance Unable to climb stairs in his home to reach bedroom Will require first floor accommodations (hospital bed, wheelchair, walker, be dside commode) in order to safely return home at this time Pt desires further chemotherapy but overall prognosis is poor. Functional status will likely continue to decline #Dyspnea and Respiratory Abnormalities During PT pt was on room air and desaturated to low [id number] At rest lying in bed, pt requires oxygen due to air hunger Some component can be attributed to his acute condition, but overall this is likely due to the large tumor burden in his lung #Need for Home Oxygen As above, pt will require home oxygen 1-2L at rest, higher during ambulation or any home PT to regain any loss of function Dispo: Tele Diet: Regular DVT PPx: Eliquis Admission and Anticipated Discharge Date Admission Date: March 31, 2023 Supervising Physician Co-Signing Physician Notes I personally examined the patient and verified all sánchez points of history and exam, discussed case, and agree with decision making with Dr Carrero No complaints. Fairly sleepy today and does not converse much. Denies any significant problems, anticipates goal of going home. Vitals noted, in general he is very fatigued does not appear to be in pain or respiratory distress. Breathing unlabored no accessory muscle use good effort on 2 L. Neuro shows no focal deficits. Metastatic cancer, obstructive pneumonia, overall decline, malignant effusioncontinue supportive care, plan as above. Appreciate team input. Subjective 42 yo male PMHx L lung adenocarcinoma with spinal mets, HTN, mixed restrictive/obstructive lung disease admitted for shortness of breath. Found to have L pneumonia and elevated troponin. This AM: NAD. Pain well controlled. Denies PAULINO, CP, N/V/D, LE swelling. More somnolent today. Review of Systems Review of Systems: reviewed, per HPI Physical Exam Physical Exam: General: patient resting comfortably, NAD, non-toxic in appearance, AA&O x 4, answers questions appropriately and follows commands. Skin: warm, dry, intact HEENT: NC/AT, anicteric sclera, conjunctiva without injection, moist mucus membranes, trachea midline, no thyromegaly, no JVD Heart: +S1/S2, regular, no m/r/g Lungs: Decreased breath sounds + mild rales L side Abd: +BS, soft, NT/ND, no masses/organomegaly/ascites Ext: warm, no clubbing/cyanosis or edema Neuro: nonfocal, patient AA&O x 4, speech intact, no facial droop, moving all extremities on command. Results & Data Results & Data Vital Signs (Past 12 Hours) Vital Signs Temp Pulse Pulse Resp BP Pulse Ox O2 Del Method 04/07/23 03:00 37.3 C 130 H 20 138/98 94 Room Air 04/07/23 01:50 129 H 04/06/23 20:50 Room Air, Nasal Cannula 04/06/23 23:00 36.7 C 129 H 16 130/87 95 Room Air 04/06/23 19:00 37.2 C 119 H 16 134/91 96 Room Air O2 Flow Rate 04/07/23 03:00 04/07/23 01:50 04/06/23 20:50 2 04/06/23 23:00 04/06/23 19:00 Resident Activity Tracking Resident Involvement: Resident Care Provided Care Provided: Adult Hospital Medicine (2) Pneumonia Laterality: left Lung location: lower lobe of lung Pneumonia type: due to unspecified organism Qualified Code(s): J18.9 - Pneumonia, unspecified organism
[2023-04-07 07:40] LABS: BUN Creatinine Ratio 9.2 (10-20); Bilirubin,Total 0.9 mg/dl (0.2-1.0); Calcium 7.3 mg/dl (8.6-10.3); Creatinine Clr Calc Pharmacy 151.1 ml/min; Est GFR (Non-African American) 121.7 ml/min; Globulin 2.9 gm/dl (2.5-4.0); Potassium 3.1 mmol/L (3.5-5.1); Total Protein 5.9 gm/dl (6.0-8.3)
[2023-04-07 08:00] LABS: Basophils # (auto) 0.03 K/uL (0.00-0.20); Basophils % (auto) 0.2 %; Eosinophils # (auto) 0.24 K/uL (0.00-0.50); Eosinophils % (auto) 1.7 %; Hematocrit (blood only) 24.5 % (42.0-52.0); Hemoglobin 8.6 g/dl (14.0-18.0); Immature Granulocytes # (auto) 0.27 K/uL (0.01-0.20); Immature Granulocytes % (auto) 1.9 %; Lymphocytes # (auto) 1.22 K/uL (1.20-3.40); Lymphocytes % (auto) 8.7 %; Mean Corpuscular Hemoglobin 28.6 pg (25.0-34.0); Mean Corpuscular Hgb Conc 35.1 g/dL (32.0-36.0); Mean Corpuscular Volume 81.4 fL (80.0-100.0); Monocytes % (auto) 5.7 %; Neutrophils # (auto) 11.52 K/uL (1.40-6.50); Neutrophils % (auto) 81.8 %; Nucleated RBC # (auto) 0.04 K/uL (0.00-0.12); Nucleated RBC % (auto) 0.3 %; Platelet Count 48 K/uL (130-400); RDW Coefficient of Variation 14.6 % (11.5-14.5); RDW Standard Deviation 42.9 fL (36.4-46.3); Red Blood Count 3.01 M/uL (4.70-6.10); White Blood Count 14.08 K/ul (4.8-10.8)
[2023-04-07] MEDS: POTASSIUM CHLORIDE CRTAB 20 MEQ TABCR PO SCH (08:07)
[2023-04-07] MEDS: guaiFENesin 600 MG TABCR PO SCH ×2 (08:07→21:47)
[2023-04-07] MEDS: METOPROLOL SUCC 25MG EXT REL TAB PO SCH (08:07)
[2023-04-07] MEDS: APIXABAN 5 MG TABLET PO SCH ×2 (08:07→21:47)
[2023-04-07] MEDS: LIDOCAINE 5% 1 PATCH TD SCH (08:08)
[2023-04-07] MEDS: oxyCODONE HCL IR 5 MG TAB (IMMEDIATE RELEASE) PO PRN (12:24)
--- NOTE | 2023-04-07 18:07 | Billing Data ---
Date of Service April 07, 2023 Coding Level of Care Code 17602 SUB INP/OBS CARE MIN
[2023-04-07] MEDS: OSIMERTINIB MESYLATE PO SCH (21:46)
[2023-04-08] MEDS: PIPERACILLIN/TAZOBACTAM 4.5 GM in DEXTROSE 5% MINI-B 100 ML IV SCH ×4 (00:22→23:54)
[2023-04-08] MEDS: CHECK fentaNYL PATCH PLACEMENT SCH ×3 (00:23→15:28)
[2023-04-08] MEDS ORDERED: MoRPHine SULFATE 2 MG/ML CARP IV STA ×2 (01:20→23:48)
--- NOTE | 2023-04-08 01:22 | Communication Note ---
Date of Service: April 08, 2023 1:10 received notice patient was increasingly hypercapnic RR 36 with noted chest pain. Per nursing patient was laying horizontally with nasal cannula off when he became dyspneic, felt chest discomfort with deep inspiration. Nasal cannula was replaced, per patient symptoms improved still mildly tachypnic. PE patient awake appropriately conversive, mildly anxious, lungs cta b/l. Ordered EKG CXR labs cbc cmp lactate trop. Ordered morphine 2mg IV to help with air hunger. Fluids placed on hold. EKG sinus tachycardia which is patient's baseline. CXR red emonstrates left sided pleural effusion with possible left sided pulmonary edema. At this time patient head of bed to remain elevated, patient understands current plan. 2:46 Patient's troponin remains elevated 2236.4 WBC increased to 15.94, K 3.2. Patient continues to be tachypnic RR 28. Ordered potassium repletion 40meq PO. Ordered lasix 20mg IV for pulm edema. Ordered metoprolol succinate 25mg PO, adjusted medication to reflect metoprolol succinate 25mg BID. Ordered albumin 25%. Per nursing patient is incontinent of urine, ordered ellis. Adjusted amlabs to 7:30am.
[2023-04-08] MEDS ORDERED: MoRPHine SULFATE 2 MG/ML CARP ONE (01:23)
[2023-04-08 01:54] LABS: Hematocrit (blood only) 25.2 % (42.0-52.0); Hemoglobin 8.6 g/dl (14.0-18.0); Mean Corpuscular Hemoglobin 28.4 pg (25.0-34.0); Mean Corpuscular Hgb Conc 34.1 g/dL (32.0-36.0); Mean Corpuscular Volume 83.2 fL (80.0-100.0); Nucleated RBC # (auto) 0.06 K/uL (0.00-0.12); Nucleated RBC % (auto) 0.4 %; Platelet Count 55 K/uL (130-400); RDW Coefficient of Variation 14.9 % (11.5-14.5); RDW Standard Deviation 45.1 fL (36.4-46.3); Red Blood Count 3.03 M/uL (4.70-6.10); White Blood Count 15.94 K/ul (4.8-10.8)
[2023-04-08 02:05] LABS: Albumin Level 3.1 gm/dl (3.4-5.0); BUN Creatinine Ratio 9.3 (10-20); Bilirubin,Total 0.9 mg/dl (0.2-1.0); Calcium 7.8 mg/dl (8.6-10.3); Creatinine Clr Calc Pharmacy 130.9 ml/min; Est GFR (Non-African American) 114.7 ml/min; Globulin 3.2 gm/dl (2.5-4.0); Potassium 3.2 mmol/L (3.5-5.1); Total Protein 6.3 gm/dl (6.0-8.3)
[2023-04-08 02:32] LABS: Basophils # (auto) 0.04 K/uL (0.00-0.20); Basophils % (auto) 0.3 %; Eosinophils # (auto) 0.41 K/uL (0.00-0.50); Eosinophils % (auto) 2.6 %; Immature Granulocytes # (auto) 0.42 K/uL (0.01-0.20); Immature Granulocytes % (auto) 2.6 %; Lymphocytes # (auto) 1.79 K/uL (1.20-3.40); Lymphocytes % (auto) 11.2 %; Monocytes # (auto) 0.91 K/uL (0.11-0.59); Monocytes % (auto) 5.7 %; Neutrophils # (auto) 12.37 K/uL (1.40-6.50); Neutrophils % (auto) 77.6 %; Polychromasia 1+
[2023-04-08 02:39] LABS: Troponin I High Sensitivity 2236.4 pg/ml (0-20)
[2023-04-08] MEDS ORDERED: POTASSIUM CHLORIDE CRTAB 20 MEQ TABCR PO ONE (02:55)
[2023-04-08] MEDS ORDERED: FUROSEMIDE INJ 20 MG/2 ML VIAL IV ONE (02:59)
[2023-04-08] MEDS ORDERED: METOPROLOL SUCC 25MG EXT REL TAB PO ONE (03:25)
[2023-04-08] MEDS ORDERED: ALBUMIN 25% 25 GM/100 ML VIAL IV ONE (03:27)
--- NOTE | 2023-04-08 06:57 | Hospitalist Progress Note ---
Date of Service April 08, 2023 Assessment & Plan (1) Elevated troponin: (2) Pneumonia: (3) Elevated d-dimer: (4) Thrombocytopenia: (5) Hypertension: (6) Adenocarcinoma of lung: (7) Declining functional status: (8) Physical deconditioning: (9) Ambulatory dysfunction: (10) Dyspnea and respiratory abnormalities: (11) Malignant pleural effusion: (12) Requires continuous at home supplemental oxygen: Plan 42 yo male PMHx L lung adenocarcinoma with spinal mets, HTN, mixed restrictive/obstructive lung disease admitted for shortness of breath. Found to have L pneumonia and elevated troponin. Needs palliative care referral for outpatient follow up #Elevated Troponin Suspect demand ischemia Continue to monitor Metoprolol 25mg BID #Pneumonia Left-lower lobe infiltrate noted on CT On Zosyn F/u blood cultures Sputum culture s/p thoracentesis for pleural effusion #Malignant Pleural Effusion Contents of aspirated fluid on thoracentesis positive for malignant cells #Elevated D dimer Noted on admission History of L LE DVT CTA neg LE Doppler with non occlusive thromboses Apixaban 5mg BID #Thrombocytopenia Remains stable Will restart anticoagulation If any procedure is necessary will be high risk Plan for platelet transfusion below 20,000 or higher if necessary #Hypertension Chronic, was low at admission Hold antihypertensives at this time Monitor BPs, restart if pressure greater than 140/90 #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 GOC discussion took place, patient desires palliative care intervention at this time. He is likely to pursue additional chemotherapy, second line therapy. Understanding that this is unlikely to yeild curative results. Open to hospice if symptom burden outweighs benefits of futher chemotherapy. Discussed code status, desires full code at this time. during discussion - discussed necessity of knowing pts wishes in the event that he cannot communicate these at some point during his disease course #Electrolyte abnormalities replete as needed #Ambulatory Dysfunction Patients exercise tolerance and respiratory status make him a very high fall risk Unable to climb stairs, ambulate short distances to complete ADLs Will require assistive devices to achieve any degree of independence within his own home. #Declining Functional Status Pt completed PT assessment today Very poor exercise tolerance Unable to climb stairs in his home to reach bedroom Will require first floor accommodations (hospital bed, wheelchair, walker, bedside commode) in order to safely return home at this time Pt desires further chemotherapy but overall prognosis is poor. Functional status will likely continue to decline #Dyspnea and Respiratory Abnormalities During PT pt was on room air and desaturated to low [id number] At rest lying in bed, pt requires oxygen due to air hunger Some component can be attributed to his acute condition, but overall this is likely due to the large tumor burden in his lung #Need for Home Oxygen As above, pt will require home oxygen 1-2L at rest, higher during ambulation or any home PT to regain any loss of function Dispo: Tele Diet: Regular DVT PPx: Eliquis Admission and Anticipated Discharge Date Admission Date: March 31, 2023 Supervising Physician Co-Signing Physician Notes I personally examined the patient and verified all sánchez points of history and exam, discussed case, and agree with decision making with Dr Carrero No new complaints. present at bedside. Later discussed with palliative careinput greatly appreciated. Vitals noted, in general he is very fatigued does not appear to be in pain or respiratory distress. Breathing unlabored no accessory muscle use good effort on 2 L. Neuro shows no focal deficits. Metastatic cancer, obstructive pneumonia, overall decline, malignant effusioncontinue supportive care, plan as above. Appreciate team input. Patient needs a hospital bed due to requiring frequent changes in body position . The patient requires positing of the body not feasible with an ordinary bed in order to alleviate pain. Patient can't use a walker or cane safely at this time and a wheelchair would improve ADL's within the home. Subjective 42 yo male PMHx L lung adenocarcinoma with spinal mets, HTN, mixed restrictive/obstructive lung disease admitted for shortness of breath. Found to have L pneumonia and elevated troponin. Overnight became tachypneic. Repeat labs drawn. Hyponatremic. Trop remains elevated, suspect demand. Metoprolol increased to 25mg BID. Albumin given. Fluids stopped. This AM: NAD. Pain well controlled. Denies PAULINO, CP, N/V/D, LE swelling. More somnolent today. Had follow up meeting with palliative care today. Pt desires DNR/DNI. Does not want to pursue hospice at this time. Review of Systems Review of Systems: reviewed, per HPI Physical Exam Physical Exam: General: patient resting comfortably, NAD, non-toxic in appearance, AA&O x 4, answers questions appropriately and follows commands. Skin: warm, dry, intact HEENT: NC/AT, anicteric sclera, conjunctiva without injection, moist mucus membranes, trachea midline, no thyromegaly, no JVD Heart: +S1/S2, regular, no m/r/g Lungs: Decreased breath sounds + mild rales L side Abd: +BS, soft, NT/ND, no masses/organomegaly/ascites Ext: warm, no clubbing/cyanosis or edema Neuro: nonfocal, patient AA&O x 4, speech intact, no facial droop, moving all extremities on command. Results & Data Results & Data Vital Signs (Past 12 Hours) Vital Signs Temp Pulse Pulse Resp BP BP Pulse Ox 04/07/23 23:30 124 H 04/08/23 05:47 119 H 118/80 04/08/23 02:46 37 C 131 H 26 H 122/80 98 04/07/23 21:40 04/07/23 22:51 36.5 C 124 H 24 136/88 100 04/07/23 19:27 36.7 C 124 H 26 H 134/88 97 O2 Del Method O2 Flow Rate 04/07/23 23:30 04/08/23 05:47 04/08/23 02:46 Nasal Cannula 3 04/07/23 21:40 Room Air, Nasal Cannula 2 04/07/23 22:51 Nasal Cannula 04/07/23 19:27 Nasal Cannula Resident Activity Tracking Resident Involvement: Resident Care Provided Care Provided: Adult Hospital Medicine (2) Pneumonia Laterality: left Lung location: lower lobe of lung Pneumonia type: due to unspecified organism Qualified Code(s): J18.9 - Pneumonia, unspecified organism
--- NOTE | 2023-04-08 08:10 | XRay Report ---
XR chest 1V portable HISTORY: Shortness of breath. COMPARISON: Chest 04/06/2023. FINDINGS: No pneumothorax. The cardiac silhouette remains mildly enlarged. Embolization coils again n oted within the right upper quadrant. Mild pulmonary vascular congestion has improved. Small to moder ate left pleural effusion and left basilar densities persist. Left hilar/AP window fullness is again noted. This corresponds the patient's known left perihilar mass. IMPRESSION: 1. No change in the small to moderate left pleural effusion. 2. Left hilar/AP window fullness corresponds to the patient's known perihilar mass. ACT 112: Negative or not required by law. Electronically signed by: Chalino Bean M.D. 04/08/2023 8:08 AM
[2023-04-08] MEDS: guaiFENesin 600 MG TABCR PO SCH ×2 (08:37→20:17)
[2023-04-08] MEDS: APIXABAN 5 MG TABLET PO SCH ×2 (08:37→20:17)
[2023-04-08] MEDS: POTASSIUM CHLORIDE CRTAB 20 MEQ TABCR PO SCH (08:39)
[2023-04-08] MEDS: LIDOCAINE 5% 1 PATCH TD SCH (08:40)
[2023-04-08 08:54] LABS: Hematocrit (blood only) 23.4 % (42.0-52.0); Hemoglobin 7.9 g/dl (14.0-18.0); Mean Corpuscular Hemoglobin 28.2 pg (25.0-34.0); Mean Corpuscular Hgb Conc 33.8 g/dL (32.0-36.0); Mean Corpuscular Volume 83.6 fL (80.0-100.0); Nucleated RBC # (auto) 0.04 K/uL (0.00-0.12); Nucleated RBC % (auto) 0.3 %; Platelet Count 41 K/uL (130-400); RDW Standard Deviation 45.5 fL (36.4-46.3); White Blood Count 12.26 K/ul (4.8-10.8)
[2023-04-08 09:12] LABS: Albumin Globulin Ratio 1.1 (0.9-2); Albumin Level 3.3 gm/dl (3.4-5.0); BUN Creatinine Ratio 8.5 (10-20); Bilirubin,Total 0.9 mg/dl (0.2-1.0); Calcium 7.5 mg/dl (8.6-10.3); Creatinine Clr Calc Pharmacy 119.7 ml/min; Est GFR (African American) 128.2 ml/min; Est GFR (Non-African American) 110.6 ml/min; Potassium 3.3 mmol/L (3.5-5.1); Total Protein 6.3 gm/dl (6.0-8.3)
[2023-04-08] MEDS: oxyCODONE HCL IR 5 MG TAB (IMMEDIATE RELEASE) PO PRN (12:16)
--- NOTE | 2023-04-08 15:00 | Palliative Care Progress Note ---
Date of Service April 08, 2023 Assessment & Plan (1) Pain: Plan: Continue fentanyl and prn oxycodone. Will d/c lidocaine patch He feels that pain is controlled with current regimen. (2) Dyspnea: Plan: with metastatic lung cancer and malignant pleural effusion Continue O2. Discussed use of opioid to relieve air hunger as well as pain. (3) Palliative care encounter: Plan: I met with Mr. Goldman and his at bedside. They are anxious for him to go home. We talked about how she will manage his care at home and she told me that her mother is helping her. They also have a 7yo daughter at home. We discussed home nursing support and they are agreeable to this. They would want to try therapy to improve his functional capacity if possible. He would still like to pursue chemotherapy if possible but understands that he would not be able to do that with his current functional status. We discussed concern that his func tional status may not improve. He acknowledges this. If that were the case, he could transition from home care to hospice care at home. We have discussed hospice care in detail at prior visit. They understand and agree. We also addressed his code status. He had mentioned at last visit that he wasn't sure that he wanted CPR. I asked him what his thoughts were now and he told me that he did not want CPR. His asked if it would be ok to "try a little CPR". We discussed concern that it is difficult to do partial CPR and would not have the desired outcome. She agrees with DNR. Code status changed to reflect this. Discussed plan of care with catalytic case operator and Dr. Son Admission and Anticipated Discharge Date Admission Date: March 31, 2023 Subjective Episode of chest pain and hypercapnia last night. Chest xray indicates persistent pleural effusion. He is on 4L O2 and reports feeling better now. He complains of left chest pain, not pleuritic as well as pain in his right leg. He has had oxycodone x 1 in last 24 hours in addition to fentanyl patch for pain. He does not feel that lidocaine patch has been effective. Review of Systems Review of Systems: ESAS Pain 2/3 Dyspnea 1/3 Nausea 0/3 Drowsiness 0/3 Physical Exam Constitutional: + ill appearing Respiratory: normal respiratory effort; no labored breathing Cardiovascular: Rate/Rhythm: regular rate and regular rhythm Neurologic: Speech / Cognition: normal cognition Results & Data Vital Signs (Past 12 Hours) Vital Signs Temp Pulse Resp BP BP Pulse Ox O2 Del Method 04/08/23 11:42 98.2 F 118 H 20 116/82 98 Nasal Cannula 04/08/23 07:48 98.2 F 112 H 21 111/78 100 Nasal Cannula 04/08/23 07:46 Nasal Cannula 04/08/23 05:47 119 H 118/80 O2 Flow Rate 04/08/23 11:42 4.0 04/08/23 07:48 4.0 04/08/23 07:46 3 04/08/23 05:47 PG Care Time/CCT Total # of Minutes Spent Total Time Spent: 60 Total Time Spent with Patient: Total time spent is greater than 50% in coordination of care (as documented) at patient's floor/unit and/or counseling patient: symptom management, goals of care, hospice, code status, patient and family education and support, coordination of care Coding Level of Care Code 24427 SUB INP/OBS CARE 3/50MIN Diagnoses Pain R52 Dyspnea R06.00 Palliative care encounter Z51.5
--- NOTE | 2023-04-08 15:49 | Electrocardiogram Report ---
Test Reason : Blood Pressure : / mmHG Vent. Rate : 142 BPM Atrial Rate : 142 BPM P-R Int : 122 ms QRS Dur : 080 ms QT Int : 284 ms P-R-T Axes : 055 069 000 degrees QTc Int : 436 ms Sinus tachycardia Otherwise normal ECG When compared with ECG of 02-APR-2023 09:38, No significant change was found Confirmed by Collin Xiong ([id number]) on 04/08/2023 3:48:39 PM Referred By: REFERRED SELF Confirmed By:Collin Xiong
--- NOTE | 2023-04-08 18:21 | Billing Data ---
Date of Service April 08, 2023 Coding Level of Care Code 49408 SUB INP/OBS CARE
[2023-04-08] MEDS: METOPROLOL SUCC 25MG EXT REL TAB PO SCH (20:18)
[2023-04-08] MEDS: OSIMERTINIB MESYLATE PO SCH (20:19)
[2023-04-08] MEDS: MoRPHine SULFATE 2 MG/ML CARP IV PRN (21:18)
[2023-04-09] MEDS: CHECK fentaNYL PATCH PLACEMENT SCH ×3 (00:08→16:40)
[2023-04-09] MEDS: MoRPHine SULFATE 2 MG/ML CARP IV PRN (05:28)
[2023-04-09] MEDS ORDERED: MoRPHine SULFATE 2 MG/ML CARP IV PRN (05:42)
[2023-04-09] MEDS ORDERED: MoRPHine SULFATE 2 MG/ML CARP IV STA (05:42)
[2023-04-09] MEDS ORDERED: MoRPHine SULFATE 2 MG/ML CARP ONE (05:46)
[2023-04-09] MEDS: PIPERACILLIN/TAZOBACTAM 4.5 GM in DEXTROSE 5% MINI-B 100 ML IV SCH ×2 (06:33→16:40)
--- NOTE | 2023-04-09 06:39 | Hospitalist Progress Note ---
Date of Service April 09, 2023 Assessment & Plan (1) Elevated troponin: (2) Pneumonia: (3) Elevated d-dimer: (4) Thrombocytopenia: (5) Hypertension: (6) Adenocarcinoma of lung: (7) Declining functional status: (8) Physical deconditioning: (9) Ambulatory dysfunction: (10) Dyspnea and respiratory abnormalities: (11) Malignant pleural effusion: (12) Requires continuous at home supplemental oxygen: Plan 42 yo male PMHx L lung adenocarcinoma with brain, liver, spinal mets, HTN, mixed restrictive/obstructive lung disease admitted for shortness of breath. Found to have L pneumonia and elevated troponin. 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 GOC discussion took place, patient desires palliative care intervention at this time. He is likely to pursue additional chemotherapy, second line therapy. Understanding that this is unlikely to yield curative results. Open to hospice if symptom burden outweighs benefits of further chemotherapy. Palliative mtg 04/08/23: Discussed code status, now desires DNR/DNI. during discussion - discussed necessity of knowing pts wishes in the event that he cannot communicate these at some point during his disease course 04/09/23: Again met with patient and his at bedside. Expressed low odds of curing underlying malignancy. Explained the support that hospice can provide, if curative pursuit is terminated. #Malignant Pleural Effusion Contents of aspirated fluid on thoracentesis positive for malignant cells Eliquis held, txn to heparin Plan for pleurx placement friday #Elevated Troponin Suspect demand ischemia Continue to monitor Metoprolol 25mg BID #Pneumonia Left-lower lobe infiltrate noted on CT On Zosyn #Elevated D dimer Noted on admission History of L LE DVT CTA neg LE Doppler with non occlusive thromboses Heparin for now, resume abixaban after pleurx placement #Thrombocytopenia Remains stable Will restart anticoagulation If any procedure is necessary will be high risk Plan for platelet transfusion below 20,000 or higher if necessary #Hypertension Chronic, was low at admission Hold antihypertensives at this time Monitor BPs, restart if pressure greater than 140/90 #Electrolyte abnormalities replete as needed #Ambulatory Dysfunction Patients exercise tolerance and respiratory status make him a very high fall risk Unable to climb stairs, ambulate short distances to complete ADLs Will require assistive devices to achieve any degree of independence within his own home. #Declining Functional Status Pt completed PT assessment today Very poor exercise tolerance Unable to climb stairs in his home to reach bedroom Will require first floor accommodations (hospital bed, wheelchair, walker, bedside commode) in order to safely return home at this time Pt desires further chemotherapy but overall prognosis is poor. Functional status will likely continue to decline #Dyspnea and Respiratory Abnormalities During PT pt was on room air and desaturated to low 90s/[id number] At rest lying in bed, pt requires oxygen due to air hunger Some component can be attributed to his acute condition, but overall this is likely due to the large tumor burden in his lung #Need for Home Oxygen As above, pt will require home oxygen 1-2L at rest, higher during ambulation or any home PT to regain any loss of function Dispo: Tele Diet: Regular DVT PPx: Eliquis Admission and Anticipated Discharge Date Admission Date: March 31, 2023 Supervising Physician Co-Signing Physician Notes I personally examined the patient and verified all sánchez points of history and exam, discussed case, and agree with decision making with Dr Carrero Notes that his breathing feels better than this morning. No other new compl aints. Agrees with plan to proceed with Pleurx Vitals noted, in general he is very fatigued does not appear to be in pain or respiratory distress. Breathing unlabored no accessory muscle use good effort on 4 L oxy mask. Neuro shows no focal deficits. Metastatic cancer, obstructive pneumonia, overall decline, malignant effusioncontinue supportive care, plan as above. Appreciate team input. Patient needs a hospital bed due to requiring frequent changes in body position . The patient requires positing of the body not feasible with an ordinary bed in order to alleviate pain. Patient can't use a walker or cane safely at this time and a wheelchair would improve ADL's within the home. For Pleurx given accumulation of effusion and worsening up/down respiratory status. Continuing to consider his goals of care. Subjective 42 yo male PMHx L lung adenocarcinoma with spinal mets, HTN, mixed restrictive/obstructive lung disease admitted for shortness of breath. Found to have L pneumonia and elevated troponin. Overnight pt again became tachypneic and short of breath. Suspect air hunger. Morphine increased and placed on respi-mask. This AM: NAD. Pain well controlled. Denies PAULINO, CP, N/V/D, LE swelling. More somnolent today. Pt now DNR/DNI after meeting with palliative care yesterday. Review of Systems Review of Systems: reviewed, per HPI Physical Exam Physical Exam: General: patient resting comfortably, NAD, non-toxic in appearance, AA&O x 4, answers questions appropriately and follows commands. Skin: warm, dry, intact HEENT: NC/AT, anicteric sclera, conjunctiva without injection, moist mucus membranes, trachea midline, no thyromegaly, no JVD Heart: +S1/S2, regular, no m/r/g Lungs: Decreased breath sounds + mild rales L side Abd: +BS, soft, NT/ND, no masses/organomegaly/ascites Ext: warm, no clubbing/cyanosis or edema Neuro: nonfocal, patient AA&O x 4, speech intact, no facial droop, moving all extremities on command. Results & Data Results & Data Vital Signs (Past 12 Hours) Vital Signs Temp Pulse Pulse Pulse Resp BP BP 04/09/23 06:00 130 H 20 130/94 04/09/23 05:51 131 H 21 139/95 04/09/23 02:44 36.8 C 126 H 20 123/84 04/08/23 22:01 120 H 04/09/23 00:05 122 H 28 H 130/87 04/08/23 23:47 139 H 38 H 144/98 H 04/08/23 20:00 04/08/23 22:42 36.8 C 123 H 22 126/86 04/08/23 19:30 37 C 128 H 22 134/87 Pulse Ox O2 Del Method O2 Flow Rate 04/09/23 06:00 99 Oxymask 4 04/09/23 05:51 100 Oxymask 4 04/09/23 02:44 99 Nasal Cannula 04/08/23 22:01 04/09/23 00:05 99 Nasal Cannula 4 04/08/23 23:47 96 Nasal Cannula 4 04/08/23 20:00 Nasal Cannula 4 04/08/23 22:42 99 Nasal Cannula 04/08/23 19:30 98 Nasal Cannula Resident Activity Tracking Resident Involvement: Resident Care Provided Care Provided: Adult Hospital Medicine (2) Pneumonia Laterality: left Lung location: lower lobe of lung Pneumonia type: due to unspecified organism Qualified Code(s): J18.9 - Pneumonia, unspecified organism
[2023-04-09] MEDS: guaiFENesin 600 MG TABCR PO SCH ×2 (08:10→21:36)
[2023-04-09] MEDS: METOPROLOL SUCC 25MG EXT REL TAB PO SCH ×2 (08:10→21:36)
[2023-04-09] MEDS: APIXABAN 5 MG TABLET PO SCH (08:10)
[2023-04-09] MEDS: POTASSIUM CHLORIDE CRTAB 20 MEQ TABCR PO SCH (08:11)
--- NOTE | 2023-04-09 08:19 | XRay Report ---
XR chest 1V portable CLINICAL HISTORY: Worsening dyspnea. Lung cancer. COMPARISON STUDY: Chest CT March 30, 2023. Chest radiograph April 08, 2023. FINDINGS: There is no pneumothorax. A moderate left pleural effusion has slightly increased in size. There is associated left basilar opacity. There is no right pleural effusion. Interstitial thickening is unchanged. Cardiomediastinal silhouette is stable. Mediastinal adenopathy and left lower lobe mas s are better depicted on prior CT. IMPRESSION: 1. Moderate left pleural effusion, slightly increased in size since prior exam. Associated left basil ar opacity. 2. Mediastinal lymphadenopathy and left lower lobe mass are better depicted on prior chest CT. ACT 112: Negative or not required by law. Electronically signed by: Lester Courtney M.D. 04/09/2023 8:16 AM
[2023-04-09 08:47] LABS: Hematocrit (blood only) 25.4 % (42.0-52.0); Hemoglobin 8.5 g/dl (14.0-18.0); Mean Corpuscular Hgb Conc 33.5 g/dL (32.0-36.0); Mean Corpuscular Volume 83.6 fL (80.0-100.0); Nucleated RBC # (auto) 0.03 K/uL (0.00-0.12); Nucleated RBC % (auto) 0.2 %; Platelet Count 41 K/uL (130-400); RDW Coefficient of Variation 15.2 % (11.5-14.5); RDW Standard Deviation 45.8 fL (36.4-46.3); Red Blood Count 3.04 M/uL (4.70-6.10); White Blood Count 15.56 K/ul (4.8-10.8)
[2023-04-09 09:02] LABS: Albumin Level 3.2 gm/dl (3.4-5.0); BUN Creatinine Ratio 10.5 (10-20); Calcium 7.5 mg/dl (8.6-10.3); Creatinine Clr Calc Pharmacy 103.4 ml/min; Est GFR (African American) 115.6 ml/min; Est GFR (Non-African American) 99.7 ml/min; Globulin 3.1 gm/dl (2.5-4.0); Potassium 3.5 mmol/L (3.5-5.1); Total Protein 6.3 gm/dl (6.0-8.3)
[2023-04-09 09:05] LABS: Basophils # (auto) 0.05 K/uL (0.00-0.20); Basophils % (auto) 0.3 %; Eosinophils # (auto) 0.37 K/uL (0.00-0.50); Eosinophils % (auto) 2.4 %; Immature Granulocytes # (auto) 0.34 K/uL (0.01-0.20); Immature Granulocytes % (auto) 2.2 %; Lymphocytes # (auto) 1.48 K/uL (1.20-3.40); Lymphocytes % (auto) 9.5 %; Monocytes # (auto) 0.86 K/uL (0.11-0.59); Monocytes % (auto) 5.5 %; Neutrophils # (auto) 12.46 K/uL (1.40-6.50); Neutrophils % (auto) 80.1 %; Polychromasia 1+
[2023-04-09] MEDS ORDERED: Heparin IV Adult Wt-Based Standard *NO* Bolus Protocol IV ONE (11:55)
[2023-04-09 13:11] LABS: Hematocrit (blood only) 24.8 % (42.0-52.0); Hemoglobin 8.4 g/dl (14.0-18.0); Mean Corpuscular Hemoglobin 28.3 pg (25.0-34.0); Mean Corpuscular Hgb Conc 33.9 g/dL (32.0-36.0); Mean Corpuscular Volume 83.5 fL (80.0-100.0); Nucleated RBC # (auto) 0.05 K/uL (0.00-0.12); Nucleated RBC % (auto) 0.3 %; Platelet Count 41 K/uL (130-400); RDW Coefficient of Variation 15.3 % (11.5-14.5); RDW Standard Deviation 46.1 fL (36.4-46.3); Red Blood Count 2.97 M/uL (4.70-6.10); White Blood Count 15.48 K/ul (4.8-10.8)
--- NOTE | 2023-04-09 13:16 | Pulmonology Progress Note ---
Date of Service April 09, 2023 Assessment & Plan (1) Thrombocytopenia: (2) Pneumonia: Laterality: left Lung location: lower lobe of lung Pneumonia type: due to unspecified organism Qualified Code(s): J18.9 - Pneumonia, unspecified organism (3) Mixed restrictive and obstructive lung disease: (4) Pleural effusion on left: (5) Abnormal CT of the chest: (6) Adenocarcinoma of lung: Plan CT chest 03/30/2023 personally reviewed: Patchy opacity groundglass right upper lobe as well as the lingula Consolidative process in the left lower lobe with left-sided pleural effusion Left perihilar mass 5.5 x 4.3 cm Significant mediastinal lymphadenopathy, Station 4R lymphadenopathy seems to be worse 2D echo 03/31/2023: EF 60-65%, RV grossly normal in size, severe left atrium enlargement, moderate MR --Left lower lobe pneumonia Patient does have left hilar mass from before Is that playing a role in left lower lobe consolidative process, difficult to rule out although patient had left hilar mass since August 2022 Respiratory bio fire negative for everything Nasal MRSA negative Procalcitonin 0.21 CRP 8.02 -- Left-sided pleural effusion S/p thoracentesis 04/03/2023, 400 mL serosanguineous lymphocytic, transudative. Cytology is positive for adenocarcinoma Pleural: LDH 347, protein 3.2, pH 7.55 Sputum: LDH 804, protein 6.5 -- Mixed obstructive restrictive lung disease Restriction is most likely coming from the pleural involvement as well as a pleural effusion Obstruction from underlying lung cancer and/or possible asthma Continue with incentive spirometry PFT 09/27/2021: Mixed obstructive restrictive lung disease with mild obstruction and mild to moderate restriction, insignificant bronchodilator response, normal DLCO FVC 3.29 L 67%, FEV1 2.08 L 52%, FEV1/FVC 63%, RV 63%, TLC 62%, RV/TLC 101%, DLCO 75% -- Stage IV adenocarcinoma of the lung S/p EBUS 09/21/2021 PET/CT 10/03/2021 showed extensive uptake with nodules bilateral lungs PET/CT 12/2021 showed decrease in size of Left lung mass and resolving of pulmonary nodules on right but New lesions in the liver Was started on chemotherapy carboplatin/pemetrexed and completed 6 cycles on 2/2 12/2022 On maintenance pemetrexed/Tagrisso (Osimertinib) 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 Not in respiratory distress at this time. Requiring 4L NC for comfort. Discussed utility of repeat thoracentesis versus PleurX catheter placement. He and his will consider this. Eliquis to be held in anticipation of PleurX placement. Heparin gtt in the interim as ordered by primary service. Last dose of Eliquis on 04/09/2023 @ 0810. Patient would be off Eliquis for 48 hr on 04/11 which would be the earliest we would consider intervention. Please note the above document was generated using voice recognition software. It may contain grammatical, syntax or spelling errors.Any formal questions or concerns about the content, text or information contained within the body of this dictation should be directly addressed to the provider for clarification. Admission and Anticipated Discharge Date Admission Date: March 31, 2023 Supervising Physician Co-Signing Physician Notes Patient seen and examined at bedside. No acute distress He has been requiring more oxygen than when I last saw him after thoracentesis. Denies any chest pain. Does state that it is difficult to breathe. No nausea vomiting Appetite is still poor. Denies any headache or blurry vision Constitutional: No acute distress HEENT: EOMI, PERRLA Respiratory system:Decreased air entry on the left side, no wheeze, rhonchi, mild crackles bilaterally CVS: S1-S2 positive, no murmurs or gallops,tachycardia Abdomen: Soft, nontender, nondistended, positive bowel sounds x4 Extremities: +2 pulses bilaterally radialis/ dorsalis pedis,no cyanosis, no edema Neuro: Awake alert oriented x3 Psych: Normal mood and affect G/U: No Moran Plan: Unfortunately patient's left-sided pleural effusion is getting worse. It was positive for malignancy I think it will be appropriate to put a Pleurx catheter in as he is going to get a pleural effusion again and again. Hold Eliquis as of today. We will try to do the procedure after 48 hours which will be either Friday or Friday Patient is agreeable to the procedure Subjective Patient seen and evaluated by myself. Previous notes reviewed. He reports that he has some dyspnea at rest. He has required 4 L oxy mask. Nursing staff reports there has been no change in his breathing, however he feels better with the oxygen in place. He denies complaints of pain otherwise. Review of Systems Review of Systems: Unchanged from admission. Physical Exam Physical Exam: VITAL SIGNS - Vital signs and nursing notes were reviewed. GENERAL - 42-year-old male appearing his stated age who is in no acute distress. Frail appearing. LUNGS -Auscultation reveals deminished breath sounds on the LEFT. CARDIAC - RRR with S1/S2. No murmur, rubs, or gallops appreciated. PSYCH - A&Ox3 and cooperates fully with examiner. Pt is very pleasant and interacts well with examiner. Skin: no rashes, warm and dry Lymphatic: no cervical or axillary lymphadenopathy Results & Data Results & Data Vital Signs (Past 12 Hours) Vital Signs Temp Pulse Pulse Pulse Resp BP BP 04/09/23 11:25 36.5 C 112 H 18 124/82 04/09/23 09:00 04/09/23 08:00 36.7 C 120 H 20 117/83 04/09/23 07:15 129 H 04/09/23 06:00 130 H 20 130/94 04/09/23 05:51 131 H 21 139/95 04/09/23 02:44 36.8 C 126 H 20 123/84 Pulse Ox O2 Del Method O2 Flow Rate 04/09/23 11:25 100 Oxymask 4 04/09/23 09:00 Oxymask 04/09/23 08:00 99 Oxymask 4 04/09/23 07:15 04/09/23 06:00 99 Oxymask 4 04/09/23 05:51 100 Oxymask 4 04/09/23 02:44 99 Nasal Cannula Laboratory Results 04/09/23 12:46 04/09/23 08:15 PG Care Time/CCT Total # of Minutes Spent Total Time Spent with Patient: Total time spent is greater than 50% in coordination of care (as documented) at patient's floor/unit and/or counseling patient: Coding Level of Care Code 61523 SUB INP/OBS CARE 3/50MIN Diagnoses Thrombocytopenia D69.6 Pneumonia J18.9 Laterality: left Lung location: lower lobe of lung Pneumonia type: due to unspecified organism Mixed restrictive and obstructive lung disease J43.9; J98.4 Pleural effusion on left J90 Abnormal CT of the chest R93.89 Adenocarcinoma of lung C34.90
[2023-04-09 13:32] LABS: Basophils # (auto) 0.05 K/uL (0.00-0.20); Basophils % (auto) 0.3 %; Eosinophils # (auto) 0.42 K/uL (0.00-0.50); Eosinophils % (auto) 2.7 %; Immature Granulocytes % (auto) 1.9 %; Lymphocytes # (auto) 1.53 K/uL (1.20-3.40); Lymphocytes % (auto) 9.9 %; Monocytes # (auto) 0.88 K/uL (0.11-0.59); Monocytes % (auto) 5.7 %; Neutrophils % (auto) 79.5 %; Polychromasia 1+; Toxic Vacuolation 1+
[2023-04-09 13:40] LABS: INR 1.8 (0.9-1.1); Partial Thromboplastin Ratio 1.4; Prothrombin Time 18.7 Seconds (9.0-12.0)
[2023-04-09] MEDS: HEPARIN SODIUM/DEXTROSE 25,000 UNITS/500 ML BAG IV SCH (14:14)
[2023-04-09] MEDS: MoRPHine SULFATE 4 MG/ML 1 ML CARP\\VIAL IV PRN ×2 (14:14→20:12)
--- NOTE | 2023-04-09 16:26 | Electrocardiogram Report ---
Test Reason : Blood Pressure : / mmHG Vent. Rate : 114 BPM Atrial Rate : 114 BPM P-R Int : 120 ms QRS Dur : 092 ms QT Int : 356 ms P-R-T Axes : 039 089 010 degrees QTc Int : 490 ms Sinus tachycardia Otherwise normal ECG When compared with ECG of 08-APR-2023 01:20, No significant change was found Confirmed by Collin Xiong ([id number]) on 04/09/2023 4:25:48 PM Referred By: REFERRED SELF Confirmed By:Collin Xiong
--- NOTE | 2023-04-09 18:58 | Billing Data ---
Date of Service April 09, 2023 Coding Level of Care Code 24685 SUB INP/OBS CARE MIN
[2023-04-09] MEDS: OSIMERTINIB MESYLATE PO SCH (21:36)
[2023-04-09] MEDS: fentaNYL 12 MCG/HR TDSY TD SCH (21:36)
[2023-04-09 22:12] LABS: Partial Thromboplastin Ratio 2.8
[2023-04-09 22:18] LABS: Partial Thromboplastin Time 78.9 Seconds (21.0-31.0)
[2023-04-10] MEDS: PIPERACILLIN/TAZOBACTAM 4.5 GM in DEXTROSE 5% MINI-B 100 ML IV SCH ×4 (00:22→23:06)
[2023-04-10] MEDS: CHECK fentaNYL PATCH PLACEMENT SCH ×3 (00:23→15:59)
[2023-04-10] MEDS: MoRPHine SULFATE 4 MG/ML 1 ML CARP\\VIAL IV PRN ×5 (02:03→20:00)
[2023-04-10 04:26] LABS: Basophils # (auto) 0.05 K/uL (0.00-0.20); Basophils % (auto) 0.3 %; Eosinophils % (auto) 2.8 %; Hematocrit (blood only) 23.9 % (42.0-52.0); Immature Granulocytes # (auto) 0.29 K/uL (0.01-0.20); Lymphocytes % (auto) 7.6 %; Mean Corpuscular Hemoglobin 28.4 pg (25.0-34.0); Mean Corpuscular Hgb Conc 33.5 g/dL (32.0-36.0); Mean Corpuscular Volume 84.8 fL (80.0-100.0); Mean Platelet Volume 12.4 fL (9.4-12.4); Monocytes # (auto) 0.77 K/uL (0.11-0.59); Monocytes % (auto) 5.3 %; Neutrophils # (auto) 11.79 K/uL (1.40-6.50); Nucleated RBC # (auto) 0.04 K/uL (0.00-0.12); Nucleated RBC % (auto) 0.3 %; Platelet Count 55 K/uL (130-400); RDW Coefficient of Variation 15.4 % (11.5-14.5); RDW Standard Deviation 46.5 fL (36.4-46.3); Red Blood Count 2.82 M/uL (4.70-6.10)
[2023-04-10 04:44] LABS: Albumin Level 3.1 gm/dl (3.4-5.0); C Reactive Protein 18.04 mg/dl (0-0.5); Calcium 7.4 mg/dl (8.6-10.3); Creatinine Clr Calc Pharmacy 118.3 ml/min; Est GFR (African American) 127.6 ml/min; Est GFR (Non-African American) 110.1 ml/min; Globulin 3.1 gm/dl (2.5-4.0); Potassium 3.6 mmol/L (3.5-5.1); Total Protein 6.2 gm/dl (6.0-8.3)
[2023-04-10 07:16] LABS: Partial Thromboplastin Time 112.8 Seconds (21.0-31.0)
[2023-04-10] MEDS: guaiFENesin 600 MG TABCR PO SCH ×2 (07:59→20:01)
[2023-04-10] MEDS: METOPROLOL SUCC 25MG EXT REL TAB PO SCH ×2 (08:00→20:01)
[2023-04-10] MEDS: POTASSIUM CHLORIDE CRTAB 20 MEQ TABCR PO SCH (08:00)
[2023-04-10] MEDS: HEPARIN SODIUM/DEXTROSE 25,000 UNITS/500 ML BAG IV SCH (10:52)
--- NOTE | 2023-04-10 11:23 | Pulmonology Progress Note ---
Date of Service April 10, 2023 Assessment & Plan (1) Thrombocytopenia: (2) Pneumonia: Laterality: left Lung location: lower lobe of lung Pneumonia type: due to unspecified organism Qualified Code(s): J18.9 - Pneumonia, unspecified organism (3) Mixed restrictive and obstructive lung disease: (4) Pleural effusion on left: (5) Abnormal CT of the chest: (6) Adenocarcinoma of lung: Plan CT chest 03/30/2023 personally reviewed: Patchy opacity groundglass right upper lobe as well as the lingula Consolidative process in the left lower lobe with left-sided pleural effusion Left perihilar mass 5.5 x 4.3 cm Significant mediastinal lymphadenopathy, Station 4R lymphadenopathy seems to be worse 2D echo 03/31/2023: EF 60-65%, RV grossly normal in size, severe left atrium enlargement, moderate MR --Left lower lobe pneumonia Patient does have left hilar mass from before Is that playing a role in left lower lobe consolidative process, difficult to rule out although patient had left hilar mass since August 2022 Respiratory bio fire negative for everything Nasal MRSA negative Procalcitonin 0.21 CRP 8.02 -- Left-sided pleural effusion S/p thoracentesis 04/03/2023, 400 mL serosanguineous lymphocytic, transudative. Cytology is positive for adenocarcinoma Pleural: LDH 347, protein 3.2, pH 7.55 Sputum: LDH 804, protein 6.5 -- Mixed obstructive restrictive lung disease Restriction is most likely coming from the pleural involvement as well as a pleural effusion Obstruction from underlying lung cancer and/or possible asthma Continue with incentive spirometry PFT 09/27/2021: Mixed obstructive restrictive lung disease with mild obstruction and mild to moderate restriction, insignificant bronchodilator response, normal DLCO FVC 3.29 L 67%, FEV1 2.08 L 52%, FEV1/FVC 63%, RV 63%, TLC 62%, RV/TLC 101%, DLCO 75% -- Stage IV adenocarcinoma of the lung S/p EBUS 09/21/2021 PET/CT 10/03/2021 showed extensive uptake with nodules bilateral lungs PET/CT 12/2021 showed decrease in size of Left lung mass and resolving of pulmonary nodules on right but New lesions in the liver Was started on chemotherapy carboplatin/pemetrexed and completed 6 cycles on 08/26/2022 On maintenance pemetrexed/Tagrisso (Osimertinib) 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 Not in respiratory distress at this time. Requiring 4L NC for comfort. Discussed utility of repeat thoracentesis versus PleurX catheter placement. He and his will consider this. Eliquis to be held in anticipation of PleurX placement. Heparin gtt in the interim as ordered by primary service. Last dose of Eliquis on 04/09/2023 @ 0810. Patient would be off Eliquis for 48 hr on 04/11 which would be the earliest we would consider intervention. Please note the above document was generated using voice recognition software. It may contain grammatical, syntax or spelling errors.Any formal questions or concerns about the content, text or information contained within the body of this dictation should be directly addressed to the provider for clarification. Admission and Anticipated Discharge Date Admission Date: March 31, 2023 Supervising Physician Co-Signing Physician Notes I saw and evaluated the patient with Cr Gusman PA-C, and agree with findings and plan as documented in the note. Patient seen and examined at bedside. He was in respiratory distress His was also at bedside. His heart rate was in the 130s. Breathing in the mid 20s Denies any nausea vomiting Poor appetite No headache, no blurry vision Constitutional: In respiratory distress HEENT: EOMI, PERRLA Respiratory system:Decreased air entry on the left side, no wheeze, rhonchi, positive crackles bilaterally CVS: S1-S2 positive, no murmurs or gallops,tachycardia Abdomen: Soft, nontender, nondistended, positive bowel sounds x4 Extremities: +2 pulses bilaterally radialis/ dorsalis pedis,no cyanosis, no edema Neuro: Awake alert oriented x3 Psych: Normal mood and affect G/U: No Moran Plan: Patient's Eliquis has been on hold since 04/09/2023 He is on heparin drip right now Patient's as well as patient where I explained that because he is really short of breath Pleurx catheter versus thoracentesis could be thought of right now to relieve him of shortness of breath to certain degree. Both patient and patient's opted for Pleurx catheter. I did explain to the that the risk of bleeding is higher given that it has been only 24 hours on hold from Eliquis, they understand the risk and want to go ahead with it. Consent signed, witnessed and put in the chart Please note the above document was generated using voice recognition software. It may contain grammatical, syntax or spelling errors.Any formal questions or concerns about the content, text or information contained within the body of this dictation should be directly addressed to the provider for clarification. Subjective Patient was seen and evaluated bedside this morning. He reports continued to feel weak. He complains of some slight discomfort to the LEFT-sided chest as well as some ongoing difficulty with breathing. Review of Systems Review of Systems: Unchanged from admission. Physical Exam Physical Exam: VITAL SIGNS - Vital signs and nursing notes were reviewed. GENERAL - 42-year-old male appearing his stated age who is in no acute distress. Frail appearing. LUNGS -Auscultation reveals deminished breath sounds on the LEFT. CARDIAC - RRR with S1/S2. No murmur, rubs, or gallops appreciated. PSYCH - A&Ox3 and cooperates fully with examiner. Pt is very pleasant and interacts well with examiner. Skin: no rashes, warm and dry Lymphatic: no cervical or axillary lymphadenopathy Results & Data Results & Data Vital Signs (Past 12 Hours) Vital Signs Temp Pulse Pulse Pulse Resp BP BP 04/10/23 08:00 119 H 04/10/23 08:00 04/10/23 07:37 37.5 C 128 H 18 133/85 04/10/23 03:00 36.8 C 120 H 18 128/89 04/10/23 02:01 125 H 30 H 128/91 04/10/23 01:14 129 H Pulse Ox O2 Del Method O2 Flow Rate 04/10/23 08:00 04/10/23 08:00 Nasal Cannula 4 04/10/23 07:37 98 Nasal Cannula 3 04/10/23 03:00 99 Nasal Cannula 04/10/23 02:01 04/10/23 01:14 Laboratory Results 04/10/23 04:15 04/10/23 04:15 PG Care Time/CCT Total # of Minutes Spent Total Time Spent with Patient: Total time spent is greater than 50% in coordination of care (as documented) at patient's floor/unit and/or counseling patient: Coding Level of Care Code 99884 SUB INP/OBS CARE MIN Diagnoses Thrombocytopenia D69.6 Pneumonia J18.9 Laterality: left Lung location: lower lobe of lung Pneumonia type: due to unspecified organism Mixed restrictive and obstructive lung disease J43.9; J98.4 Pleural effusion on left J90 Abnormal CT of the chest R93.89 Adenocarcinoma of lung C34.90
--- NOTE | 2023-04-10 12:43 | Electrocardiogram Report ---
Test Reason : Blood Pressure : / mmHG Vent. Rate : 127 BPM Atrial Rate : 127 BPM P-R Int : 118 ms QRS Dur : 090 ms QT Int : 338 ms P-R-T Axes : 057 095 001 degrees QTc Int : 491 ms Sinus tachycardia Rightward axis Borderline ECG When compared with ECG of 09-APR-2023 08:56, No significant change was found Confirmed by Collin Xiong ([id number]) on 04/10/2023 12:43:10 PM Referred By: REFERRED SELF Confirmed By:Collin Xiong
[2023-04-10] MEDS ORDERED: MoRPHine SULFATE 2 MG/ML CARP IV PRN (12:54)
--- NOTE | 2023-04-10 13:18 | XRay Report ---
XR chest 1V portable HISTORY: 42 years-old Male worsening dyspnea, pleural effusion left-sided pleural effusion. Acute sh ortness of breath COMPARISON: Chest radiograph 04/09/2023, chest CT 03/30/2023. TECHNIQUE: AP view of the chest FINDINGS: Increased size of the left pleural effusion, now moderate to large. Progressive left lung volume loss with left basilar consolidation. Left lower lobe mass is better seen on the prior CT. Mediastinal ly mphadenopathy. Pulmonary vascular congestion. No pneumothorax. Bones appear grossly intact. IMPRESSION: 1. Increased size of the left pleural effusion, now moderate to large with progressive left lung volu me loss/consolidation. 2. Left lower lobe mass is better seen on the prior chest CT. 3. Cardiomegaly with pulmonary vascular congestion. 4. Mediastinal lymphadenopathy. ACT 112: Negative or not required by law. The above report was generated using voice recognition software. It may contain grammatical, syntax o r spelling errors. Electronically signed by: Reji Duvall M.D. 04/10/2023 1:17 PM
--- NOTE | 2023-04-10 15:11 | Hospitalist Progress Note ---
Date of Service April 10, 2023 Assessment & Plan (1) Elevated troponin: (2) Pneumonia: (3) Elevated d-dimer: (4) Thrombocytopenia: (5) Hypertension: (6) Adenocarcinoma of lung: (7) Declining functional status: (8) Physical deconditioning: (9) Ambulatory dysfunction: (10) Dyspnea and respiratory abnormalities: (11) Malignant pleural effusion: (12) Requires continuous at home supplemental oxygen: Plan 42 yo male PMHx L lung adenocarcinoma with brain, liver, spinal mets, HTN, mixed restrictive/obstructive lung disease admitted for shortness of breath. Found to have L pneumonia and elevated troponin. 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 GOC discussion took place, patient desires palliative care intervention at this time. He is likely to pursue additional chemotherapy, second line therapy. Understanding that this is unlikely to yield curative results. Open to hospice if symptom burden outweighs benefits of further chemotherapy. Palliative mtg 04/08/23: Discussed code status, now desires DNR/DNI. during discussion - discussed necessity of knowing pts wishes in the event that he cannot communicate these at some point during his disease course 04/09/23: Again met with patient and his at bedside. Expressed low odds of curing underlying malignancy. Explained the support that hospice can provide, if curative pursuit is terminated. #Malignant Pleural Effusion Contents of aspirated fluid on thoracentesis positive for malignant cells Eliquis held, txn to heparin Plan for pleurx placement friday Dramatically more dyspneic today, morphine 2mg q30 minutes PRN dyspnea/air hunger #Elevated Troponin Suspect demand ischemia Continue to monitor Metoprolol 25mg BID #Pneumonia Left-lower lobe infiltrate noted on CT On Zosyn #Elevated D dimer Noted on admission History of L LE DVT CTA neg LE Doppler with non occlusive thromboses Heparin for now, resume abixaban after pleurx placement #Thrombocytopenia Remains stable Will restart anticoagulation If any procedure is necessary will be high risk Plan for platelet transfusion below 20,000 or higher if necessary #Hypertension Chronic, was low at admission Hold antihypertensives at this time Monitor BPs, restart if pressure greater than 140/90 #Electrolyte abnormalities replete as needed #Ambulatory Dysfunction Patients exercise tolerance and respiratory status make him a very high fall risk Unable to climb stairs, ambulate short distances to complete ADLs Will require assistive devices to achieve any degree of independence within his own home. #Declining Functional Status Pt completed PT assessment today Very poor exercise tolerance Unable to climb stairs in his home to reach bedroom Will require first floor accommodations (hospital bed, wheelchair, walker, bedside commode) in order to safely return home at this time Pt desires further chemotherapy but overall prognosis is poor. Functional status will likely continue to decline #Dyspnea and Respiratory Abnormalities During PT pt was on room air and desaturated to low [id number] At rest lying in bed, pt requires oxygen due to air hunger Some component can be attributed to his acute condition, but overall this is likely due to the large tumor burden in his lung #Need for Home Oxygen As above, pt will require home oxygen 1-2L at rest, higher during ambulation or any home PT to regain any loss of function Dispo: Tele Diet: Regular DVT PPx: Eliquis Admission and Anticipated Discharge Date Admission Date: March 31, 2023 Supervising Physician Co-Signing Physician Notes I personally examined the patient and verified all sánchez points of history and exam, discussed case, and agree with decision making with Dr Carrero breathing worse yet again. notes she would be very scared with him at home this way. nursing notes that it took 4mg of morphine to help w dyspnea. vitals noted appearing still in mild/mod respiratory distress but this is apparently better than earlier according to very experienced nursing who has been at his bedside today. lungs show more or less absent breath sounds left sided, right is clear. No focal neurodeficits. Metastatic cancer, obstructive pneumonia, overall decline, malignant effusion He is unfortunately showing more or less daily worseningan abrupt worsening of respiratory distress and chest x-ray shows worsening of effusionI really do not conceive of how he could be comfortable at home with this much respiratory distress and rapid deterioration. noted she was very afraid of having him at home suffering/struggling but felt that that was the plan she would have to follow through withwe discussed that with his respiratory status worsening and none of us wanting him to sufferhe really is best served here in the hospital for now (at least until his situation levels out again and home/hospice could be reasonable) or (given his rather dramatic worsening over the last few days) it is quite conceivable he may pass here in the hospital. In regards to his respiratory distressmorphine intervals tightened to help alleviate dyspnea, oxygen for dyspnea, and given that it is directly related to a worsening accumulation of his pleural effusion, pulmonary reevaluation appreciated, and hopefully thoracentesis or Pleurx will be of benefit. Subjective 42 yo male PMHx L lung adenocarcinoma with spinal mets, HTN, mixed restrictive/obstructive lung disease admitted for shortness of breath. Found to have L pneumonia and elevated troponin. Overnight pt again became tachypneic and short of breath. Suspect air hunger. Morphine increased and placed on respi-mask. Dramatically more dyspneic today. This AM: NAD. Pain well controlled. Denies PAULINO, CP, N/V/D, LE swelling. More somnolent today. Pt now DNR/DNI after meeting with palliative care yesterday. Review of Systems Review of Systems: reviewed, per HPI Physical Exam Physical Exam: General: patient resting comfortably, NAD, non-toxic in appearance, AA&O x 4, answers questions appropriately and follows commands. Skin: warm, dry, intact HEENT: NC/AT, anicteric sclera, conjunctiva without injection, moist mucus membranes, trachea midline, no thyromegaly, no JVD Heart: +S1/S2, regular, no m/r/g Lungs: Decreased breath sounds + mild rales L side Abd: +BS, soft, NT/ND, no masses/organomegaly/ascites Ext: warm, no clubbing/cyanosis or edema Neuro: nonfocal, patient AA&O x 4, speech intact, no facial droop, moving all extremities on command. Results & Data Results & Data Vital Signs (Past 12 Hours) Vital Signs Temp Pulse Pulse Resp BP Pulse Ox O2 Del Method 04/10/23 11:30 36.9 C 129 H 24 135/90 98 Nasal Cannula 04/10/23 08:00 119 H 04/10/23 08:00 Nasal Cannula 04/10/23 07:37 37.5 C 128 H 18 133/85 98 Nasal Cannula O2 Flow Rate 04/10/23 11:30 3 04/10/23 08:00 04/10/23 08:00 4 04/10/23 07:37 3 Resident Activity Tracking Resident Involvement: Resident Care Provided Care Provided: Adult Hospital Medicine (2) Pneumonia Laterality: left Lung location: lower lobe of lung Pneumonia type: due to unspecified organism Qualified Code(s): J18.9 - Pneumonia, unspecified organism
[2023-04-10 15:48] LABS: Partial Thromboplastin Time 56.7 Seconds (21.0-31.0)
[2023-04-10] MEDS ORDERED: LIDOCAINE 1% LOCAL 20 ML VIAL ONE (16:13)
[2023-04-10] MEDS ORDERED: LIDOCAINE 1% LOCAL 20 ML VIAL INFIL ONE (16:17)
--- NOTE | 2023-04-10 17:24 | Billing Data ---
Date of Service April 10, 2023 Coding Level of Care Code 48422 SUB INP/OBS CARE MIN
--- NOTE | 2023-04-10 17:53 | XRay Report ---
XR chest 1V portable CLINICAL HISTORY: chest tube placement TECHNIQUE: Single frontal radiograph of the chest was obtained. Comparison: Comparison is made to chest radiograph of 04/10/2023 FINDINGS: Interval placement of a left sided chest tube. The cardiomediastinal silhouette is stable. Previously noted left pleural effusion has decreased in size and is now moderate. Left-sided airspace opacity h as somewhat decreased in size. No evidence of pneumothorax. IMPRESSION: 1. Left chest tube is in satisfactory position with decrease in size of left pleural effusion and im provement in aeration compatible with improved atelectasis. Superimposed aspiration/pneumonia cannot be entirely excluded. 2. Stable cardiomegaly. Mild vascular congestion is likely. ACT 112: Negative or not required by law. Electronically signed by: Kenan Fountain M.D. 04/10/2023 5:52 PM
--- NOTE | 2023-04-10 18:14 | Procedure Note ---
Procedure Note Date of Service April 10, 2023 Note PREOPERATIVE DIAGNOSIS: Recurrent left pleural effusion. POSTOPERATIVE DIAGNOSIS: Recurrent left pleural effusion. PROCEDURE PERFORMED: Left PleurX catheter placement. ANESTHESIA: Local 1% Lidocaine without Epinephrine COMPLICATIONS: None. INDICATION FOR PROCEDURE: Recurrent malignant left-sided pleural effusion with worsening shortness of breath DESCRIPTION OF PROCEDURE: The patient was placed in a semirecumbent position. I evaluated the left pleura with the ultrasound and located an adequate spot above the diaphragm. The left chest and upper abdomen were prepped and draped in the usual sterile fashion. Lidocaine 1% was used to infiltrate two areas; one in the left upper quadrant where the tube would exit and the other along the anterior axillary line one intercostal space below. A small counterincision was made in the left upper quadrant area. Through the anterior axillary line area, the pleural space was accessed by Seldinger technique. The counterincision was made around the guidewire and then the PleurX catheter was tunneled from the right upper quadrant small incision to the one overlying the ribs. A sheath introducer was then passed over the wire and then the PleurX catheter was placed through the sheath introducer. There was good return of fluid. 850 ml of bloody fluid was withdrawn slowly as the small counterincision was closed with Monocryl stitch. The catheter was capped off, and sterile dressings were applied. The patient tolerated the procedure well without any complications. Chest Xray to follow. Patient's subcu tissue was thickened. It took an effort to pass a tunnel catheter through it. Pleural fluid is bloodier at this time. It was serosanguineous on the last time. There has been no significant drop in hemoglobin compared to 04/03/2023. It likely seems that he is losing slowly into the left pleural cavity rather than actively bleeding. Would recommend to hold anticoagulation for at least a day or so and then resume it as feasible This information was relayed to the primary team. Complications: None Blood Loss: < 3cc Coding CPT Codes Pulmonary/Thoracic - Pulmonary and Thoracic: 74291 Insert pleural cathereter w/cuff ([id number]) Pulmonary/Thoracic - Pulmonary and Thoracic: 90242 Pleural drainage w/o imaging ([id number]) Pulmonary/Thoracic - Pulmonary and Thoracic: 67884 US, Chest, real time with imaging documentation ([id number]) [facility] Procedure Codes (Charges) Pulmonary/Thoracic Procedure 1: Pulmonary and Thoracic: 63182 Insert pleural cathereter w/cuff Procedure 2: Pulmonary and Thoracic: 95532 Pleural drainage w/o imaging Procedure 3: Pulmonary and Thoracic: 82743 US, Chest, real time with imaging documentation
[2023-04-10] MEDS ORDERED: SODIUM CHLORIDE 0.9% 250 ML IV PRN (18:22)
[2023-04-10 19:10] LABS: Hematocrit (blood only) 23.4 % (42.0-52.0); Hemoglobin 7.6 g/dl (14.0-18.0)
[2023-04-10] MEDS: OSIMERTINIB MESYLATE PO SCH (20:02)
[2023-04-10] MEDS: ACETAMINOPHEN 325 MG TAB PO PRN (23:13)
[2023-04-11 00:32] LABS: Hematocrit (blood only) 23.2 % (42.0-52.0); Hemoglobin 7.7 g/dl (14.0-18.0)
[2023-04-11] MEDS: CHECK fentaNYL PATCH PLACEMENT SCH ×2 (01:04→08:31)
[2023-04-11] MEDS: MoRPHine SULFATE 4 MG/ML 1 ML CARP\\VIAL IV PRN ×2 (06:43→09:18)
--- NOTE | 2023-04-11 06:59 | Hospitalist Progress Note ---
Date of Service April 11, 2023 Assessment & Plan (1) Elevated troponin: (2) Pneumonia: (3) Elevated d-dimer: (4) Thrombocytopenia: (5) Hypertension: (6) Adenocarcinoma of lung: (7) Declining functional status: (8) Physical deconditioning: (9) Ambulatory dysfunction: (10) Dyspnea and respiratory abnormalities: (11) Malignant pleural effusion: (12) Requires continuous at home supplemental oxygen: Plan 42 yo male PMHx L lung adenocarcinoma with brain, liver, spinal mets, HTN, mixed restrictive/obstructive lung disease admitted for shortness of breath. Found to have L pneumonia and elevated troponin. 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, liver, brain Pt brought his chemo medication Tagrisso with him from home Suspect the location of his primary lesion contributed to development of L lower lobe pneumonia Transition to comfort care only beginning 04/11/14 #Malignant Pleural Effusion Contents of aspirated fluid on thoracentesis positive for malignant cells Sue lopez, txn to heparin Plan for pleurx placement friday Dramatically more dyspneic today, morphine 2mg q30 minutes PRN dyspnea/air hunger Dispo: Tele Diet: Regular DVT PPx: None Admission and Anticipated Discharge Date Admission Date: March 31, 2023 Supervising Physician Co-Signing Physician Notes I personally examined the patient and verified all sánchez points of history and exam, discussed case, and agree with decision making with Dr Carrero breathing feels better now that he's on morphine. pain better. vitals noted resting comfortably. Has oxy mask on. Breathing is fortunately not labored. No complaints of pain. No focal neurodeficits. Metastatic cancer, obstructive pneumonia, overall decline, malignant effusion He is unfortunately showing more or less daily worseningrequired morphine drip to alleviate dyspnea after escalated dosing and heightened frequency of as needed morphine was not helping enough. Now appears more comfortable. Discussed with patient and quite frankly that unfortunately it appears his final days are coming soon, and that home is not likely to be viable without significant suffering. He/ expressed understanding and appreciation of continuing to stay in the hospital. Continue morphine drip. Continue comfort care. Subjective 42 yo male PMHx L lung adenocarcinoma with spinal mets, HTN, mixed restrictive/obstructive lung disease admitted for shortness of breath. Found to have L pneumonia and elevated troponin. Now on morphine drip, ativan PRN, 5L o2 by mask This AM: Tachypneic, in obvious discomfort, pt denies. Pt now DNR/DNI after meeting with palliative care yesterday. Review of Systems Review of Systems: reviewed, per HPI Physical Exam Physical Exam: General: patient resting comfortably, NAD, non-toxic in appearance, AA&O x 4, answers questions appropriately and follows commands. Skin: warm, dry, intact HEENT: NC/AT, anicteric sclera, conjunctiva without injection, moist mucus membranes, trachea midline, no thyromegaly, no JVD Heart: +S1/S2, regular, no m/r/g Lungs: Decreased breath sounds + mild rales L side Abd: +BS, soft, NT/ND, no masses/organomegaly/ascites Ext: warm, no clubbing/cyanosis or edema Neuro: nonfocal, patient AA&O x 4, speech intact, no facial droop, moving all extremities on command. Results & Data Results & Data Vital Signs (Past 12 Hours) Vital Signs Temp Pulse Pulse Pulse Resp BP BP 04/11/23 04:00 04/11/23 02:40 36.7 C 103 H 20 104/73 04/11/23 01:48 126 H 04/11/23 00:06 36.8 C 04/10/23 22:45 37.8 C H 124 H 22 125/87 04/10/23 19:00 36.8 C 131 H 21 132/92 Pulse Ox Pulse Ox O2 Del Method O2 Del Method O2 Flow Rate O2 Flow Rate 04/11/23 04:00 100 Oxymask 5 04/11/23 02:40 100 Oxymask 5 04/11/23 01:48 04/11/23 00:06 04/10/23 22:45 99 Oxymask 4 04/10/23 19:00 99 Oxymask Resident Activity Tracking Resident Involvement: Resident Care Provided Care Provided: Adult Hospital Medicine (2) Pneumonia Laterality: left Lung location: lower lobe of lung Pneumonia type: due to unspecified organism Qualified Code(s): J18.9 - Pneumonia, unspecified organism
[2023-04-11 07:34] LABS: Basophils # (auto) 0.04 K/uL (0.00-0.20); Basophils % (auto) 0.3 %; Eosinophils # (auto) 0.44 K/uL (0.00-0.50); Eosinophils % (auto) 2.9 %; Immature Granulocytes # (auto) 0.28 K/uL (0.01-0.20); Immature Granulocytes % (auto) 1.8 %; Lymphocytes # (auto) 0.93 K/uL (1.20-3.40); Lymphocytes % (auto) 6.1 %; Mean Corpuscular Hemoglobin 28.1 pg (25.0-34.0); Mean Corpuscular Hgb Conc 33.3 g/dL (32.0-36.0); Mean Corpuscular Volume 84.2 fL (80.0-100.0); Monocytes # (auto) 0.86 K/uL (0.11-0.59); Monocytes % (auto) 5.7 %; Neutrophils # (auto) 12.61 K/uL (1.40-6.50); Neutrophils % (auto) 83.2 %; Nucleated RBC # (auto) 0.02 K/uL (0.00-0.12); Nucleated RBC % (auto) 0.1 %; Platelet Count 47 K/uL (130-400); RDW Coefficient of Variation 15.5 % (11.5-14.5); RDW Standard Deviation 46.8 fL (36.4-46.3); Red Blood Count 2.85 M/uL (4.70-6.10); White Blood Count 15.16 K/ul (4.8-10.8)
[2023-04-11 07:45] LABS: Albumin Globulin Ratio 0.9 (0.9-2); Albumin Level 3.1 gm/dl (3.4-5.0); BUN Creatinine Ratio 18.7 (10-20); Bilirubin,Total 0.9 mg/dl (0.2-1.0); Calcium 7.7 mg/dl (8.6-10.3); Creatinine Clr Calc Pharmacy 107.9 ml/min; Est GFR (African American) 121.8 ml/min; Globulin 3.3 gm/dl (2.5-4.0); Potassium 3.7 mmol/L (3.5-5.1); Total Protein 6.4 gm/dl (6.0-8.3)
[2023-04-11 08:26] LABS: Partial Thromboplastin Ratio 1.4; Partial Thromboplastin Time 39.6 Seconds (21.0-31.0)
[2023-04-11] MEDS: PIPERACILLIN/TAZOBACTAM 4.5 GM in DEXTROSE 5% MINI-B 100 ML IV SCH (08:31)
[2023-04-11] MEDS: POTASSIUM CHLORIDE CRTAB 20 MEQ TABCR PO SCH (08:32)
[2023-04-11] MEDS: guaiFENesin 600 MG TABCR PO SCH ×2 (08:32→20:59)
[2023-04-11] MEDS: METOPROLOL SUCC 25MG EXT REL TAB PO SCH (08:33)
[2023-04-11] MEDS: oxyCODONE HCL IR 5 MG TAB (IMMEDIATE RELEASE) PO PRN (08:35)
--- NOTE | 2023-04-11 08:39 | Pulmonology Progress Note ---
Date of Service April 11, 2023 Assessment & Plan (1) Thrombocytopenia: (2) Pneumonia: Laterality: left Lung location: lower lobe of lung Pneumonia type: due to unspecified organism Qualified Code(s): J18.9 - Pneumonia, unspecified organism (3) Mixed restrictive and obstructive lung disease: (4) Pleural effusion on left: (5) Abnormal CT of the chest: (6) Adenocarcinoma of lung: Plan CT chest 03/30/2023 personally reviewed: Patchy opacity groundglass right upper lobe as well as the lingula Consolidative process in the left lower lobe with left-sided pleural effusion Left perihilar mass 5.5 x 4.3 cm Significant mediastinal lymphadenopathy, Station 4R lymphadenopathy seems to be worse 2D echo 03/31/2023: EF 60-65%, RV grossly normal in size, severe left atrium enlargement, moderate MR --Left lower lobe pneumonia Patient does have left hilar mass from before Is that playing a role in left lower lobe consolidative process, difficult to rule out although patient had left hilar mass since August 2022 Respiratory bio fire negative for everything Nasal MRSA negative Procalcitonin 0.21 CRP 8.02 -- Left-sided pleural effusion S/p thoracentesis 04/03/2023, 400 mL serosanguineous lymphocytic, transudative. Cytology is positive for adenocarcinoma Pleural: LDH 347, protein 3.2, pH 7.55 Sputum: LDH 804, protein 6.5 Reaccumulated. S/p Pleurx catheter placement 04/10/2023. From the Pleurx catheter the fluid seems to be more bloody. Patient is likely oozing blood at slower rate given no significant drop in hemoglob -- Mixed obstructive restrictive lung disease Restriction is most likely coming from the pleural involvement as well as a pleural effusion Obstruction from underlying lung cancer and/or possible asthma Continue with incentive spirometry PFT 09/27/2021: Mixed obstructive restrictive lung disease with mild obstruction and mild to moderate restriction, insignificant bronchodilator response, normal DLCO FVC 3.29 L 67%, FEV1 2.08 L 52%, FEV1/FVC 63%, RV 63%, TLC 62%, RV/TLC 101%, DLCO 75% -- Stage IV adenocarcinoma of the lung S/p EBUS 09/21/2021 PET/CT 10/03/2021 showed extensive uptake with nodules bilateral lungs PET/CT 12/2021 showed decrease in size of Left lung mass and resolving of pulmonary nodules on right but New lesions in the liver Was started on chemotherapy carboplatin/pemetrexed and completed 6 cycles on On maintenance pemetrexed/Tagrisso (Osimertinib) 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 Overall prognosis of the patient is guarded. Please note the above document was generated using voice recognition software. It may contain grammatical, syntax or spelling errors.Any formal questions or concerns about the content, text or information contained within the body of this dictation should be directly addressed to the provider for clarification. Admission and Anticipated Discharge Date Admission Date: March 31, 2023 Subjective Patient seen and examined at bedside. No acute distress, no adverse events overnight. Patient was saturating 100% on 4 L nasal cannula. He was not any respiratory distress. Overall he said that the breathing is better after the Pleurx catheter was placed yesterday Denies any significant discomfort at the site of the Pleurx catheter. Review of Systems Review of Systems: All systems reviewed & are unremarkable except as noted in Subjective Physical Exam Physical Exam: Constitutional: No acute distress HEENT: EOMI, PERRLA Respiratory system: Decreased air entry on the left side, no wheeze, rhonchi, mild crackles bilaterally CVS: S1-S2 positive, no murmurs or gallops, tachycardia Abdomen: Soft, nontender, nondistended, positive bowel sounds x4 Extremities: +2 pulses bilaterally radialis/ dorsalis pedis, no cyanosis, no edema Neuro: Awake alert oriented x3 Psych: Normal mood and affect G/U: No Moran Skin: no rashes, warm and dry Lymphatic: no cervical or axillary lymphadenopathy Results & Data Results & Data Vital Signs (Past 12 Hours) Vital Signs Temp Pulse Pulse Pulse Resp BP BP 04/11/23 07:30 36.3 C L 110 H 18 118/83 04/11/23 07:22 114 H 04/11/23 04:00 04/11/23 02:40 36.7 C 103 H 20 104/73 04/11/23 01:48 126 H 04/11/23 00:06 36.8 C 04/10/23 22:45 37.8 C H 124 H 22 125/87 Pulse Ox Pulse Ox O2 Del Method O2 Del Method O2 Flow Rate O2 Flow Rate 04/11/23 07:30 100 Oxymask 5 04/11/23 07:22 04/11/23 04:00 100 Oxymask 5 04/11/23 02:40 100 Oxymask 5 04/11/23 01:48 04/11/23 00:06 04/10/23 22:45 99 Oxymask 4 Laboratory Results 04/11/23 07:00 04/11/23 07:00 PG Care Time/CCT Total # of Minutes Spent Total Time Spent with Patient: Total time spent is greater than 50% in coordination of care (as documented) at patient's floor/unit and/or counseling patient: Coding Level of Care Code 26867 SUB INP/OBS CARE 2/35MIN Diagnoses Thrombocytopenia D69.6 Pneumonia J18.9 Laterality: left Lung location: lower lobe of lung Pneumonia type: due to unspecified organism Mixed restrictive and obstructive lung disease J43.9; J98.4 Pleural effusion on left J90 Abnormal CT of the chest R93.89 Adenocarcinoma of lung C34.90
[2023-04-11] MEDS ORDERED: LORazepam 2 MG/1 ML VIAL IV PRN (08:42)
[2023-04-11] MEDS ORDERED: MoRPHine SULFATE 4 MG/ML 1 ML CARP\\VIAL IV PRN (08:43)
[2023-04-11] MEDS ORDERED: NALOXONE HCL 0.4 MG/1 ML VIAL/CARP IV PRN (11:55)
[2023-04-11] MEDS ORDERED: STAT IV Infusion **Titration per Protocol STA (12:02)
[2023-04-11] MEDS ORDERED: MoRPHine SULF/NSS 100 MG/100 ML BAG IV SCH (12:15)
[2023-04-11] MEDS: SODIUM CHLORIDE 0.9% 1,000 ML IV SCH (12:40)
[2023-04-11] MEDS ORDERED: LORazepam 2 MG/1 ML VIAL IV SCH (12:46)
--- NOTE | 2023-04-11 12:57 | Palliative Care Progress Note ---
Date of Service April 11, 2023 Assessment & Plan (1) Pain: Plan: In left chest with metastatic lung cancer. He points to pleurx site but pain has been present prior to insertion. Likely related to underlying tumor burden. Given dose and frequency of morphine with approximately 85mg MME in last 24 hours, we discussed morphine infusion for more consistent pain relief. Both he and his are agreeable. Will start at 1mg/hr with prn dosing available. Fentanyl patch will be removed. He may need dose titration as fentanyl clears. Discussed with Dr. Son, RN and pharmacist (2) Dyspnea: Plan: Both he and his are very anxious about the idea of him "suffocating". We discussed use of opioids to relieve sensation of air hunger. Monitor with morphine infusion. Bolus dosing available. He also has ativan available. (3) Palliative care encounter: Plan: I met with Mr. Goldman and his at bedside. They had been hopeful that he could return home, get some therapy and improve to the point fo being able to continue cancer treatment. He has gotten progressively weaker each day with hypoxia and increased oxygen need. We had a domo discussion about concern that he is not likely to improve and is probably approaching his dying time. He acknowledges this. We discussed option of comfort care rather than ongoing disease management. He tells me that he thinks that is "reasonable" and his agrees. His is very anxious about managing his care at home and they have a 7 yo daughter at home also. He will stay here for now while we work on controlling symptoms. He is likely to continue to decline and within days to a week. His asked about prognosis and we discussed preparing for a elian er of days at this time. We discussed stopping antibiotics and all noncomfort medications and he is agreeable. They are going to alert their daughter's school counselor to provide additional support. They have discussed the fact that her father is dying with her and do not think it would be in her best interest to visit him in the hospital. We discussed age appropriate understanding of and dying and how best to support her moving forward. Admission and Anticipated Discharge Date Admission Date: March 31, 2023 Subjective Getting weaker every day per his . He has had 20mg IV morphine in last 24 hours for both pain and dyspnea in addition to fentanyl patch. He complains of pain in left chest. Pleurx catheter was inserted yesterday with drainage of bloody fluid. He denies pain or dyspnea currently on 5L oxymask. Review of Systems Review of Systems: ESAS Pain 3/3 at worst Dyspnea 2/3 Nausea 0/3 Drowsiness 1/3 Physical Exam Constitutional: + ill appearing Respiratory: normal respiratory effort; no labored breathing Cardiovascular: Rate/Rhythm: regular rate and regular rhythm Neurologic: Speech / Cognition: normal cognition Results & Data Vital Signs (Past 12 Hours) Vital Signs Temp Pulse Pulse Resp BP BP Pulse Ox 04/11/23 11:18 97.9 F 117 H 18 116/80 100 04/11/23 09:02 04/11/23 07:30 97.3 F L 110 H 18 118/83 100 04/11/23 07:22 114 H 04/11/23 04:00 04/11/23 02:40 98.1 F 103 H 20 104/73 100 04/11/23 01:48 126 H Pulse Ox O2 Del Method O2 Del Method O2 Flow Rate O2 Flow Rate 04/11/23 11:18 Oxymask 5 04/11/23 09:02 Oxymask 4 04/11/23 07:30 Oxymask 5 04/11/23 07:22 04/11/23 04:00 100 Oxymask 5 04/11/23 02:40 Oxymask 5 04/11/23 01:48 PG Care Time/CCT Total # of Minutes Spent Total Time Spent: 65 Total Time Spent with Patient: Total time spent is greater than 50% in coordination of care (as documented) at patient's floor/unit and/or counseling patient: symptom management, goals of care, prognosis, patient and family education and support, coordination of care. Coding Level of Care Code 33851 SUB INP/OBS CARE 3/50MIN Diagnoses Pain R52 Dyspnea R06.00 Palliative care encounter Z51.5
[2023-04-11] MEDS ORDERED: BACLOFEN 10 MG TAB PO PRN (13:57)
[2023-04-11] MEDS ORDERED: ONDANSETRON 4 MG OD TAB SL PRN (13:57)
[2023-04-11] MEDS ORDERED: ACETAMINOPHEN 325 MG TAB PO PRN (13:57)
[2023-04-11] MEDS ORDERED: haloperidoL 1 MG TAB PO PRN (13:57)
[2023-04-11] MEDS ORDERED: ACETAMINOPHEN 650 MG SUPP PR PRN (13:57)
[2023-04-11] MEDS ORDERED: chlorproMAZINE HCL 25 MG TAB PO PRN (13:57)
[2023-04-11] MEDS ORDERED: ONDANSETRON INJ 2 MG/ML 2 ML VIAL IV PRN (13:57)
--- NOTE | 2023-04-11 16:36 | Procedure Note ---
Procedure Note Date of Service April 11, 2023 Note Procedure: Therapeutic drainage of the left-sided pleural fluid Layout Mechanic: Dr. Shaun Vasquez Indication: Left-sided pleural effusion Consent: Verbal obtained from the patient Anesthesia: None Procedure: Dressing of the left side Pleurx catheter was removed Under aseptic precaution and sterile conditions the catheter was accessed and 650 mL of bloody fluid was removed. The procedure was stopped as patient complained of some left-sided chest discomfort Patient systolic blood pressure after the procedure was 128 with heart rate in the 110s. Patient tolerated the procedure well without any issues Complications: None Blood loss: None Coding CPT Codes Pulmonary/Thoracic - Pulmonary and Thoracic: 49629 Pleural drainage w/o imaging ([id number]) [facility] [place] Procedure Codes (Charges) Pulmonary/Thoracic Procedure 1: Pulmonary and Thoracic: 83162 Pleural drainage w/o imaging
[2023-04-11] MEDS: LORazepam 2 MG/1 ML VIAL IV PRN ×2 (17:22→21:51)
[2023-04-11] MEDS: MoRPHine SULFATE 2 MG/ML CARP IV PRN ×2 (17:23→21:04)
--- NOTE | 2023-04-11 17:23 | Billing Data ---
Date of Service April 11, 2023 Coding Level of Care Code 69038 SUB INP/OBS CARE MIN
--- NOTE | 2023-04-11 17:52 | XRay Report ---
XR chest 1V portable HISTORY: Chest tube placement. Shortness of breath. f/u COMPARISON: Chest 04/10/2023. FINDINGS: A left basilar chest tube is unchanged in position. The tip is not included on this study. The small to moderate left pleural effusion and left basilar densities have slightly progressed. No p neumothorax. The heart remains enlarged. There are low lung volumes. The left lower lobe mass and med iastinal lymphadenopathy is better appreciated on the prior CT examination. Mild pulmonary edema pers ists. IMPRESSION: 1. Left basilar chest tube appears unchanged in position. No pneumothorax. 2. Small to moderate left pleural effusion and left basilar opacities have slightly progressed. 3. Cardiomegaly and mild pulmonary edema again noted. 4. The left lower lobe mass and mediastinal lymphadenopathy is better appreciated on the prior CT exa mination. ACT 112: Negative or not required by law. Electronically signed by: Chalino Bean M.D. 04/11/2023 5:50 PM
[2023-04-12] MEDS: MoRPHine SULFATE 2 MG/ML CARP IV PRN ×9 (02:29→23:06)
--- NOTE | 2023-04-12 08:05 | Hospitalist Progress Note ---
Date of Service April 12, 2023 Assessment & Plan (1) Elevated troponin: (2) Pneumonia: (3) Elevated d-dimer: (4) Thrombocytopenia: (5) Hypertension: (6) Adenocarcinoma of lung: (7) Declining functional status: (8) Physical deconditioning: (9) Ambulatory dysfunction: (10) Dyspnea and respiratory abnormalities: (11) Malignant pleural effusion: (12) Requires continuous at home supplemental oxygen: Plan 42 yo male PMHx L lung adenocarcinoma with brain, liver, spinal mets, HTN, mixed restrictive/obstructive lung disease admitted for shortness of breath. Found to have L pneumonia and elevated troponin. Comfort/Hospice Care Morphine drip + PRN orders Ativan q1h PRN Stop monitoring vitals, stop all non-comfort medications #Adenocarcinoma of Lung With mets to spine, liver, brain Pt brought his chemo medication Tagrisso with him from home Suspect the location of his primary lesion contributed to development of L lower lobe pneumonia #Malignant Pleural Effusion Contents of aspirated fluid on thoracentesis positive for malignant cells Eliquis held, txn to heparin Morphine 2mg q30 minutes PRN dyspnea/air hunger Pleurx drain in place to decrease fluid accumulation and improve comfort Dispo: MedSurg; Hospice care Diet: Regular DVT PPx: None Admission and Anticipated Discharge Date Admission Date: March 31, 2023 Supervising Physician Co-Signing Physician Notes I personally examined the patient and verified all sánchez points of history and exam, discussed case, and agree with decision making with Dr Lieberman appears more calm and breathing better. Not really responding much. Extensive discussions with , offered empathy and support.vitals noted resting comfortably. Has oxy mask on. Breathing is fortunately not labored. Appears calm and peaceful Metastatic cancer, obstructive pneumonia, overall decline, malignant effusion He is unfortunately showing more or less daily worseningrequired morphine drip to alleviate dyspnea after escalated dosing and heightened frequency of as needed morphine was not helping enough. Now appears more comfortable. continue morphine drip, as needed Ativan for restlessness, and supportive care. Offered empathy and support to his . Subjective Mr. 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 Patient's condition has been progressively declining, and so he and his agreed to move towards comfort/hospice care. He was seen at bedside today and found to be calm, somnolent but arousable, appeared to be short of breath but in no domo respiratory distress, and in no acute distress. He is currently on morphine drip and has an oxymask at 5L on. He appears comfortable. I spoke with his who was wondering as to the time he would be passing, to which I explained to the best of my ability that it would be difficult to say a specific time, and it could be a matter of days or weeks, but again is difficult to say for sure. She asked if it would be appropriate to feed him, and was advised that if he is awake and aware enough to eat, she could help him, but should not wake him to eat. She understood what was discussed. Review of Systems Review of Systems: As per HPI. Physical Exam Physical Exam: General: Somnolent but arousable. Resting comfortably. No acute distress. Cardiac: Regular rate and rhythm, no murmurs/rubs/gallops. Respiratory: Decreased breath sounds and rales on left lung base. Mild SOB but no retractions, grunting, or signs of respiratory distress. Abdomen: Soft, nontender, nondistended. Bowel sounds present. Lower Extremities: Thin bilateral lower extremities, warm, no swelling or edema. No discoloration or deformities. Resident Activity Tracking Resident Involvement: Resident Care Provided Care Provided: Adult Hospital Medicine (2) Pneumonia Laterality: left Lung location: lower lobe of lung Pneumonia type: due to unspecified organism Qualified Code(s): J18.9 - Pneumonia, unspecified organism
[2023-04-12] MEDS: LORazepam 2 MG/1 ML VIAL IV PRN ×5 (08:53→23:06)
[2023-04-12] MEDS: guaiFENesin 600 MG TABCR PO SCH ×2 (08:53→20:28)
--- NOTE | 2023-04-12 10:39 | Pulmonology Progress Note ---
Date of Service April 12, 2023 Assessment & Plan (1) Thrombocytopenia: (2) Pneumonia: Laterality: left Lung location: lower lobe of lung Pneumonia type: due to unspecified organism Qualified Code(s): J18.9 - Pneumonia, unspecified organism (3) Mixed restrictive and obstructive lung disease: (4) Pleural effusion on left: (5) Abnormal CT of the chest: (6) Adenocarcinoma of lung: Plan CT chest 03/30/2023 personally reviewed: Patchy opacity groundglass right upper lobe as well as the lingula Consolidative process in the left lower lobe with left-sided pleural effusion Left perihilar mass 5.5 x 4.3 cm Significant mediastinal lymphadenopathy, Station 4R lymphadenopathy seems to be worse 2D echo 03/31/2023: EF 60-65%, RV grossly normal in size, severe left atrium enlargement, moderate MR --Left lower lobe pneumonia Patient does have left hilar mass from before Is that playing a role in left lower lobe consolidative process, difficult to rule out although patient had left hilar mass since August 2022 Respiratory bio fire negative for everything Nasal MRSA negative Procalcitonin 0.21 CRP 8.02 -- Left-sided pleural effusion S/p thoracentesis 04/03/2023, 400 mL serosanguineous lymphocytic, transudative. Cytology is positive for adenocarcinoma Pleural: LDH 347, protein 3.2, pH 7.55 Sputum: LDH 804, protein 6.5 Reaccumulated. S/p Pleurx catheter placement 04/10/2023. From the Pleurx catheter the fluid seems to be more bloody. Patient is likely oozing blood at slower rate given no significant drop in hemoglob -- Mixed obstructive restrictive lung disease Restriction is most likely coming from the pleural involvement as well as a pleural effusion Obstruction from underlying lung cancer and/or possible asthma Continue with incentive spirometry PFT 09/27/2021: Mixed obstructive restrictive lung disease with mild obstruction and mild to moderate restriction, insignificant bronchodilator response, normal DLCO FVC 3.29 L 67%, FEV1 2.08 L 52%, FEV1/FVC 63%, RV 63%, TLC 62%, RV/TLC 101%, DLCO 75% -- Stage IV adenocarcinoma of the lung S/p EBUS 09/21/2021 PET/CT 10/03/2021 showed extensive uptake with nodules bilateral lungs PET/CT 12/2021 showed decrease in size of Left lung mass and resolving of pulmonary nodules on right but New lesions in the liver Was started on chemotherapy carboplatin/pemetrexed and completed 6 cycles on 08/26/2022 On maintenance pemetrexed/Tagrisso (Osimertinib) 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 I tried to explain to her in the best way possible that we as physicians would not know exactly when the time of, but we can reassure her that he will not be in any agony or pain when that happens. Plan is for the patient to go on hospice later today. Can consider draining the left-sided pleural effusion with the Pleurx catheter on a as needed basis for comfort Case was discussed with RN at bedside No further recommendation from pulmonary perspective, will sign off Please call directly with any questions Please note the above document was generated using voice recognition software. It may contain grammatical, syntax or spelling errors.Any formal questions or concerns about the content, text or information contained within the body of this dictation should be directly addressed to the provider for clarification. Admission and Anticipated Discharge Date Admission Date: March 31, 2023 Subjective Patient seen and examined at bedside. He was on morphine drip. Not in any distress He was saturating 100% on 5 L oxy mask Patient's was in the room as well. Yesterday he did complain of of mild discomfort on the left side of the chest which was present even before the Pleurx catheter placement. It has not changed in intensity or frequency Review of Systems Review of Systems: All systems reviewed & are unremarkable except as noted in Subjective Physical Exam Physical Exam: Constitutional: No acute distress HEENT: EOMI, PERRLA Respiratory system: Decreased air entry on the left side, no wheeze, rhonchi, mild crackles bilaterally CVS: S1-S2 positive, no murmurs or gallops, tachycardia Abdomen: Soft, nontender, nondistended, positive bowel sounds x4 Extremities: +2 pulses bilaterally radialis/ dorsalis pedis, no cyanosis, no edema Neuro: Somnolent, easily arousable. Psych: Unable to assess G/U: No Moran Skin: no rashes, warm and dry Lymphatic: no cervical or axillary lymphadenopathy PG Care Time/CCT Total # of Minutes Spent Total Time Spent with Patient: Total time spent is greater than 50% in coordination of care (as documented) at patient's floor/unit and/or counseling patient: Coding Level of Care Code 69214 SUB INP/OBS CARE 2/35MIN Diagnoses Thrombocytopenia D69.6 Pneumonia J18.9 Laterality: left Lung location: lower lobe of lung Pneumonia type: due to unspecified organism Mixed restrictive and obstructive lung disease J43.9; J98.4 Pleural effusion on left J90 Abnormal CT of the chest R93.89 Adenocarcinoma of lung C34.90
[2023-04-12] MEDS: SODIUM CHLORIDE 0.9% 1,000 ML IV SCH (12:11)
--- NOTE | 2023-04-12 19:08 | Billing Data ---
Date of Service April 12, 2023 Coding Level of Care Code 26294 SUB INP/OBS CARE 3MIN
[2023-04-13] MEDS: MoRPHine SULFATE 2 MG/ML CARP IV PRN ×11 (01:52→22:16)
[2023-04-13] MEDS: LORazepam 2 MG/1 ML VIAL IV PRN ×5 (01:52→12:19)
[2023-04-13] MEDS: guaiFENesin 600 MG TABCR PO SCH ×2 (07:22→20:41)
[2023-04-13] MEDS: SODIUM CHLORIDE 0.9% 1,000 ML IV SCH (13:21)
[2023-04-13] MEDS: ATROPINE SULFATE 1% OP SOLN 5 ML BTL SL PRN ×4 (14:49→18:11)
--- NOTE | 2023-04-13 14:52 | Hospitalist Progress Note ---
Date of Service April 13, 2023 Assessment & Plan (1) Elevated troponin: (2) Pneumonia: (3) Elevated d-dimer: (4) Thrombocytopenia: (5) Hypertension: (6) Adenocarcinoma of lung: (7) Declining functional status: (8) Physical deconditioning: (9) Ambulatory dysfunction: (10) Dyspnea and respiratory abnormalities: (11) Malignant pleural effusion: (12) Requires continuous at home supplemental oxygen: Plan 42 yo male PMHx L lung adenocarcinoma with brain, liver, spinal mets, HTN, mixed restrictive/obstructive lung disease admitted for shortness of breath. Found to have L pneumonia and elevated troponin. 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, liver, brain Pt brought his chemo medication Tagrisso with him from home Suspect the location of his primary lesion contributed to development of L lower lobe pneumonia #Malignant Pleural Effusion Contents of aspirated fluid on thoracentesis positive for malignant cells Eliquis held, txn to heparin Morphine 2mg q30 minutes PRN dyspnea/air hunger Pleurx drain in place to decrease fluid accumulation and improve comfort Dispo: MedSurg; Hospice care Diet: Regular DVT PPx: None Admission and Anticipated Discharge Date Admission Date: March 31, 2023 Supervising Physician Co-Signing Physician Notes I personally examined the patient and verified all sánchez points of history and exam, discussed case, and agree with decision making with Dr Lieberman rest as needed more labored respirations. Obviously no HPI review of systems obtainable from patient. notes breathing has been more gurgly this afternoon. Nursing notes that he is shown some mottling. Vitals noted, laying in bed with audible gurgling respirations mild tachypnea although appearing a little bit more of a [employer] pattern of breathing but does still show some elements of respiratory distress with a little bit of grimacing and a little bit of reaching up towards his oxygen mask. Metastatic cancer, obstructive pneumonia, overall decline, malignant effusion Showing rapid and dramatic worsening, unfortunately very rapid decline and escalating needs to keep him comfortable. While he is starting to look more densely asleep, he does still show some significant signs of distress and obviously we do not want him to suffer. Has required frequent as needed morphine dosesmorphine drip now increased. Respiratory secretions not responding well enough to atropineadding Robinul. Continue as needed morphine for dyspnea and as needed Ativan for restlessness/anxiety. Offered empathy and support to . Subjective Mr. 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 Patient's condition has been progressively declining, and so he and his agreed to m ove towards comfort/hospice care. He was seen at bedside today and found to be calm, somnolent but arousable, appeared to be short of breath but in no domo respiratory distress, and in no acute distress. He is currently on morphine drip and has an oxymask at 5L on. Nursing states they drained 900mL of bloody fluid from pleurX. He has been restless on and off during the day but this improves with Ativan administration. His notes that on occasion he has episodes of <10 seconds of apnea. She was counseled that this may be as a result of Diego Velez breathing or agonal breathing. His right foot also seems to be getting slightly more cold to the touch. He does not seem to be in pain. Review of Systems Review of Systems: As per HPI. Physical Exam Physical Exam: General: Somnolent but arousable. Resting comfortably. No acute distress. Cardiac: Regular rate and rhythm, no murmurs/rubs/gallops. Respiratory: Decreased breath sounds and rhonchi on left lung base. SOB but no retractions, grunting, or signs of respiratory distress. Abdomen: Soft, nontender, nondistended. Bowel sounds present. Lower Extremities: Thin bilateral lower extremities, warm, no swelling or edema. Right anterior plantar greyish-blue discoloration that extends to right ankle, Dark toenails on the right foot, coolness to touch of right foot. Left LE without changes. Results & Data Results & Data Vital Signs (Past 12 Hours) Vital Signs O2 Del Method O2 Flow Rate 04/13/23 09:58 Oxymask 5 Resident Activity Tracking Resident Involvement: Resident Care Provided Care Provided: Adult Hospital Medicine (2) Pneumonia Laterality: left Lung location: lower lobe of lung Pneumonia type: due to unspecified organism Qualified Code(s): J18.9 - Pneumonia, unspecified organism
[2023-04-13] MEDS ORDERED: GLYCOPYRROLATE 0.2 MG/ML VIAL IV PRN (18:06)
--- NOTE | 2023-04-13 18:55 | Billing Data ---
Date of Service April 13, 2023 Coding Level of Care Code 50226 SUB INP/OBS CARE 3MIN
[2023-04-14] MEDS: MoRPHine SULFATE 2 MG/ML CARP IV PRN (03:56)
[2023-04-14] MEDS: SODIUM CHLORIDE 0.9% 1,000 ML IV SCH (06:55)
--- NOTE | 2023-04-14 07:28 | Hospitalist Progress Note ---
Date of Service April 14, 2023 Assessment & Plan (1) Elevated troponin: (2) Pneumonia: (3) Elevated d-dimer: (4) Thrombocytopenia: (5) Hypertension: (6) Adenocarcinoma of lung: (7) Declining functional status: (8) Physical deconditioning: (9) Ambulatory dysfunction: (10) Dyspnea and respiratory abnormalities: (11) Malignant pleural effusion: (12) Requires continuous at home supplemental oxygen: Plan 42 yo male PMHx L lung adenocarcinoma with brain, liver, spinal mets, HTN, mixed restrictive/obstructive lung disease admitted for shortness of breath. Found to have L pneumonia and elevated troponin. 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, liver, brain Pt brought his chemo medication Tagrisso with him from home Suspect the location of his primary lesion contributed to development of L lower lobe pneumonia #Malignant Pleural Effusion Contents of aspirated fluid on thoracentesis positive for malignant cells Eliquis held, txn to heparin Morphine 2mg q30 minutes PRN dyspnea/air hunger Pleurx drain in place to decrease fluid accumulation and improve comfort Dispo: MedSurg; Hospice care Diet: Regular DVT PPx: None Admission and Anticipated Discharge Date Admission Date: March 31, 2023 Subjective Mr. 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 Patient's condition has been progressively declining, and so he and his agreed to mo ve towards comfort/hospice care. He was seen at bedside today and found to be calm, somnolent but arousable, appeared to be short of breath but in no domo respiratory distress, and in no acute distress. He is currently on morphine drip and has an oxymask at 5L on. Nursing states they drained 900mL of bloody fluid from pleurX. He has been restless on and off during the day but this improves with Ativan administration. His notes that on occasion he has episodes of <10 seconds of apnea. She was counseled that this may be as a result of Diego Velez breathing or agonal breathing. His right foot also seems to be getting slightly more cold to the touch. He does not seem to be in pain. Results & Data Results & Data Vital Signs (Past 12 Hours) Vital Signs O2 Del Method 04/13/23 19:37 Oxymask (2) Pneumonia Laterality: left Lung location: lower lobe of lung Pneumonia type: due to unspecified organism Qualified Code(s): J18.9 - Pneumonia, unspecified organism
[2023-04-14] MEDS: LORazepam 2 MG/1 ML VIAL IV PRN (07:50)
[2023-04-14] MEDS: guaiFENesin 600 MG TABCR PO SCH (07:52)
--- NOTE | 2023-04-14 13:42 | Discharge Summary ---
Date of Service April 14, 2023 Admission HPI Per Admitting Provider The patient is a 42-year-old male with a past medical history including mixed restrictive and obstructive lung disease, left pleural effusion, hypokalemia, mediastinal lymphadenopathy, lung adenocarcinoma of left lung, and hypertension. The patient presents the emergency department with shortness of breath that. He does have some intermittent chest pain associated. He denies any associated numbness or tingling in arms or legs, and denies any recent travels or sick exposures the has developed and progressed over the past few days Admission Exam Per Admitting Provider The patient is awake, alert and oriented 3, well developed and well nourished, normocephalic and atraumatic, lying in bed and in no acute distress. HEENT--PERRL, EOMI, mucous membranes and oropharynx . Neck--supple. No JVD. No bruits. Thyroid normal, trachea midline, no adenopathy. Heart--normal S1 and S2. No murmurs, rubs or gallops. Lungs--few coarse breath sounds bilaterally, left greater than right. No respiratory distress, no accessory muscle use. Abdomen--normal bowel sounds and soft. Nontender. Nondistended, no hernias or masses, no organomegaly. Extremities--no cyanosis or clubbing. No edema. Dermatologic--normal skin turgor, normal color, no abnormal lymph nodes, no rash. Neurologic--cranial nerves II through XII grossly intact. Rheumatologic--normal range of motion. Psychiatric--normal affect. Normal Principal Diagnosis Adenocarcinoma of the lung with malignant effusion Discharge Data Allergies Allergy/AdvReac Type Severity Reaction Status Date / Time lactose AdvReac Mild Gastrointestinal Verified 04/01/23 16:09 Upset Consultations 03/31/23 00:00 ED Decision to Admit Stat 04/01/23 13:33 Consult Pulmonology Routine 04/03/23 11:39 Consult Palliative Care Routine Ordered Studies 03/30/23 21:40 CT angio chest PE protocol Stat 03/31/23 13:43 US venous doppler LE BI Urgent 04/01/23 13:38 US point of care ultrasound Urgent 04/03/23 09:28 US point of care ultrasound Urgent 04/10/23 15:28 sono, invasive monitoring [US point of care ultrasound] Urgent Hospital Course (1) Elevated troponin: (2) Pneumonia: (3) Elevated d-dimer: (4) Thrombocytopenia: (5) Hypertension: (6) Adenocarcinoma of lung: (7) Declining functional status: (8) Physical deconditioning: (9) Ambulatory dysfunction: (10) Dyspnea and respiratory abnormalities: (11) Malignant pleural effusion: (12) Requires continuous at home supplemental oxygen: Plan Pt is a 42 yo male with PMHx of L lung adenocarcinoma with brain, liver, spinal mets, HTN, mixed restrictive/obstructive lung disease admitted for shortness of breath and found to have L pneumonia and elevated troponin. #Adenocarcinoma of Lung #Malignant Pleural Effusion #acute respiratory failure #Pneumonia #Ambulatory Dysfunction/Declining Functional Status With mets to spine, liver, brain Suspect the location of his primary lesion contributed to development of L lower lobe pneumonia Left-lower lobe infiltrate noted on CT Treated with Zosyn Pleural fluid positive for malignant cells Patients exercise tolerance and respiratory status made him a very high fall risk Unable to climb stairs, ambulate short distances to complete ADLs Very poor exercise tolerance Palliative care discussion occurred during hospitalization: Patient and family opted for Comfort/Hospice Care, which included Morphine drip + PRN orders, Ativan dose increased to 2mg q1h PRN, Stopped monitoring vitals, stopped all non-comfort medications Patient on 04/14/23. Total Time Total Time Spent Total Time Spent (In Minutes): see attending attestation Discharge Plan Discharge Items Patient Disposition: Other Date/Time: 04/14/23 09:05 Supervising Physician Co-Signing Physician Notes Resident Physician Supervision Note: I independently interviewed and examined the patient and verified the sánchez history and physical, reviewed labs and image studies and agree with resident findings and care plan. Resident Activity Tracking Resident Involvement: Resident Care Provided Care Provided: Adult Hospital Medicine
== END 2023-04-14 10:06 | disposition expired | DRG 194 ==
LOC: ED 19:15 → EDINP 03-31 01:39 → SUATTDRO 03-31 01:39 → 2S 03-31 03:55 → 3E 04-12 11:49